=== PATIENT | female | born 1980 | race Caucasian/White ===

== ENCOUNTER 2024-08-25 11:47 | Outpatient (CLI) | payer OTHER, SELFPAY ==
--- NOTE | 2024-08-25 13:03 | ECG_ITS ---
Test Date: 2024-08-25 13:38:17 Measurements Intervals [place] Rate: 61 P: 0 OH: 147 QRS: 38 QRSD: 82 T: 24 QT: 407 QTc: 410 Interpretive Statements SINUS RHYTHM BASELINE ARTIFACT- I, II, III, AVR, AVL, AVF, V1-V6 NORMAL ECG No previous ECG available for comparison Electronically Signed On 08-25-2024 13:42:16 CDT by Liang Mckeon D.O.
[2024-08-25 14:02] LABS: Basophils Percent Auto 0.3 % (0.2-1.2); Eosinophils Absolute Auto 0.1 K/mm3 (0-0.3); Eosinophils Percent Auto 1.2 % (0-4.4); Hematocrit 37.1 % (37.0-47.0); Hemoglobin 12.3 g/dL (12.0-15.0); Immature Granulocyte Absolute 0.01 K/mm3 (0.00-0.031); Immature Granulocyte Percent A 0.2 % (0-0.5); Lymphocytes Absolute Auto 1.51 K/mm3 (0.9-3.2); Lymphocytes Percent Auto 25.2 % (18.3-44.2); Mean Corpuscular HGB Conc 33.2 g/dl (32-36); Mean Corpuscular Hemoglobin 30.6 pg (26-34); Mean Corpuscular Volume 92.3 fl (80-100); Mean Platelet Volume 9.9 fl (7.4-10.4); Monocytes Absolute Auto 0.6 K/mm3 (0.1-0.6); Monocytes Percent Auto 10.5 % (2.6-8.5); Neutrophils Absolute Auto 3.8 K/mm3 (1.3-6.7); Neutrophils Percent Auto 62.6 % (45.5-73.1); Platelet Count Result 229 k/mm3 (150-375); Red Blood Count 4.02 M/mm3 (4.2-5.4); Red Cell Distribution Width 12.8 % (11.5-14.5)
[2024-08-25 14:18] LABS: INR 0.9; Partial Thromboplastin Time 29.5 Seconds (22.3-36.8)
[2024-08-25 14:26] LABS: Alanine Aminotransferase 14 U/L (6-35); Albumin Level 4.1 g/dL (3.5-5.1); Alkaline Phosphatase 62 U/L (38-126); Anion Gap 5 mmol/L (4-12); Aspartate Amino Transferase 22 U/L (14-36); Bilirubin,Total 0.4 mg/dL (0.2-1.3); Blood Urea Nitrogen 11 mg/dL (7-17); Calcium 8.9 mg/dL (8.4-10.2); Carbon Dioxide 28 mmol/L (22-30); Chloride 104 mmol/L (98-107); Estimated Glomerular Filt Rate > 60; Glucose 108 mg/dL (65-110); Potassium 3.9 mmol/L (3.4-5.0); Sodium 137 mmol/L (137-145)
== END 2024-08-25 11:48 | disposition home or self-care (01) ==
LOC: ANHSURGERY 11:59
PROVIDERS: Visit Provider Urology
DX: Z01.818 Encounter for other preprocedural examination (principal); N81.3 Complete uterovaginal prolapse
CPT/HCPCS: 36415; 80053; 85025; 85610; 85730; 86850; 86900; 86901; 93005

== ENCOUNTER 2024-09-04 01:31 | Day surgery (SDC) | payer OTHER, SELFPAY ==
[2024-08-25 12:27] VITALS: BP 110/58; PULSE 59; RESP 16; TEMP 37.3; O2SAT 100; BMI 27.0
--- NOTE | 2024-08-25 12:46 | PC.NURSE ---
Report to the Outpatient Waiting Room, entrance under the green pavilion located off [facility], at time ___6:00AM____ on date ____09/04/24___. Planned Procedure Time: ____7:30AM____.? Time changes happen often and if your time is changed the preop area will call you the afternoon before. - You and your visitor will be asked to self-screen and do not enter if you have any COVID symptoms. Please call surgeon if you need to reschedule. - A mask is optional within the hospital at this time. Patients may have clear liquids (water, carbonated beverages, clear teas, apple juice) until 3 hours prior to surgery with a maximum of 20 ounces. - No food from midnight until time of surgery and no smoking. Take only the following medications with a SIP of water on the morning of surgery: MAY TAKE CLONAZEPAM NEEDED FOR ANXIETY DO NOT STOP ANY OF YOUR OTHER PRESCRIPTION MEDICATIONS PRIOR TO SURGERY EXCEPT THE FOLLOWING Medications to discontinue per physician ____HOLD ALL VITAMINS/SUPPLEMENTS 3 DAYS PRE-OP PER ANESTHESIA Date to take last dose 08/27/24 Please no make-up, nail albanian, hairspray, perfume, deodorant, or body powder the day of surgery.? No jewelry (including any body piercings) or valuables the day of surgery, leave them at home.? Please take a shower or bath the night before, or the morning of, surgery with an antibacterial soap.? Wear comfortable, loose fitting clothing.? - Jewelry must be removed prior to entering the operating room.? Rings and piercings that are not removed may be cut off. - The hospital will not accept responsibility for valuables.? - Please leave all valuables, including medications, at home the day of surgery. If you are going home after surgery, a licensed front loader residential driver must drive you home.? - NO public transportation without another adult if you receive anesthesia. - We recommend that an adult stay with you for 24 hours following discharge. - We also recommend that you do not drive, make important decision, drink alcoholic beverages, or take any drugs that were not prescribed by your health care provider for at least 24 hours after your discharge time. Follow any additional instructions given to you from your surgeon. Telephone instructions given to ____PATIENT and asked if any additional questions and then verbalized understanding. Patient advised to call surgeon office or pre surgery nurse liaison [phone] if any additional questions.
--- NOTE | 2024-08-27 17:32 | P.HP_ITS ---
H&P: HPI History of Present Illness Date/Time: 08/27/24 17:32 Chief Complaint: uterine prolapse Narrative: uterine prolapse without stress incontinence. Desires surgical correction Review of Systems Review of Systems: All systems reviewed & are unremarkable except as noted in HPI and below [facility] Social History Social History Smoking packs per day: 0.2 Smoking cigarettes per day: 4.0 Years smoked: 5 Smoking pack-years: 1.00 Smoking status: Former smoker Tobacco type: cigarettes Smoking end date: 05/29/22 Substance use: current Substance use type: marijuana Living arrangements: with family Additional living arrangements comments: PARENTS Spiritual care concerns: No Meds Home Medications and Allergies Home Medications Medication Instructions Recorded Confirmed Type acetaminophen 500 mg capsule 1,000 mg PO Q6H PRN Pain 08/25/24 08/25/24 History calcium carbonate (Tums) 300 mg PO TID PRN REFLUX 08/25/24 08/25/24 History cetirizine 10 mg tablet (Zyrtec) 10 mg PO DAILY 08/25/24 08/25/24 History clonazepam 0.5 mg tablet 0.5 mg PO DAILY PRN Anxiety 08/25/24 08/25/24 History ibuprofen 200 mg tablet 800 mg PO Q6H PRN Pain 08/25/24 08/25/24 History lactobacillus combination no.8 3 3 cell PO DAILY 08/25/24 08/25/24 History billion cell capsule penicillin V potassium 500 mg 500 mg PO TID 08/25/24 08/25/24 History tablet Allergies Allergy/AdvReac Type Severity Reaction Status Date / Time clindamycin Allergy THROAT Verified 08/25/24 12:19 TIGHTENING albuterol AdvReac TIGHTNESS Verified 08/25/24 12:19 IN LINGS aripiprazole [From Abilify] AdvReac Hallucinating, Verified 08/25/24 12:19 CONFUSION bupropion [From Wellbutrin] AdvReac INCREASED Verified 08/25/24 12:19 ANXIETY butorphanol [From Stadol] AdvReac Anxiety Verified 08/25/24 12:19 citalopram AdvReac INCREASED Verified 08/25/24 12:19 DEPRESSION zinc AdvReac fatigue, Verified 08/25/24 12:19 CHEST PAINS Exam Narrative: apex at +4 Assessment and Plan Assessment and plan (1) Uterine prolapse: Code(s): N81.4 - Uterovaginal prolapse, unspecified Status: Acute Assessment and Plan: plan for sacral colpopexy. Understands risks of bleeding, infection, damage to surrounding organs, damage to the urinary tract, diskitis, vaginal mesh extrusion, urinary tract mesh erosion, obstructive voiding requiring secondary procedure, new onset stress incontinence, dyspareunia, recurrence of prolapse. She agrees to proceed
--- NOTE | 2024-08-31 07:27 | PM.IMHP ---
H&P: HPI History of Present Illness Date/Time: 08/31/24 07:27 Chief Complaint: Uterine prolapse Narrative: Size 44 year robotic supracervical hysterectomy salpingectomy. Has a uterine prolapse and complains of pain discomfort dyspareunia. She will undergo supracervical hysterectomy bilateral salpingectomy with robotic sacral colpopexy by Dr. Mckinnon. Risks and benefits were reviewed including but not exclusive of , aspiration pneumonia, bleeding, transfusion perforation injury to bowel, bladder, ureters, or other internal organs with need for laparotomy. She received the ACOG handout entitled hysterectomy as well as the Jose R handout. She had all questions answered to her satisfaction. She asked to proceed PMF Social History Social History Smoking packs per day: 0.2 Smoking cigarettes per day: 4.0 Years smoked: 5 Smoking pack-years: 1.00 Smoking status: Former smoker Tobacco type: cigarettes Smoking end date: 05/29/22 Substance use: current Substance use type: marijuana Living arrangements: with family Additional living arrangements comments: PARENTS Spiritual care concerns: No Meds Home Medications and Allergies Home Medications Medication Instructions Recorded Confirmed Type acetaminophen 500 mg capsule 1,000 mg PO Q6H PRN Pain 08/25/24 08/25/24 History calcium carbonate (Tums) 300 mg PO TID PRN REFLUX 08/25/24 08/25/24 History cetirizine 10 mg tablet (Zyrtec) 10 mg PO DAILY 08/25/24 08/25/24 History clonazepam 0.5 mg tablet 0.5 mg PO DAILY PRN Anxiety 08/25/24 08/25/24 History ibuprofen 200 mg tablet 800 mg PO Q6H PRN Pain 08/25/24 08/25/24 History lactobacillus combination no.8 3 3 cell PO DAILY 08/25/24 08/25/24 History billion cell capsule penicillin V potassium 500 mg 500 mg PO TID 08/25/24 08/25/24 History tablet Allergies Allergy/AdvReac Type Severity Reaction Status Date / Time clindamycin Allergy THROAT Verified 08/25/24 12:19 TIGHTENING albuterol AdvReac TIGHTNESS Verified 08/25/24 12:19 IN LINGS aripiprazole [From Abiliy] AdvReac Hallucinating, Verified 08/25/24 12:19 CONFUSION bupropion [From Wellbutrin] AdvReac INCREASED Verified 08/25/24 12:19 ANXIETY butorphanol [From Stadol] AdvReac Anxiety Verified 08/25/24 12:19 citalopram AdvReac INCREASED Verified 08/25/24 12:19 DEPRESSION zinc AdvReac fatigue, Verified 08/25/24 12:19 CHEST PAINS Exam Const: General: cooperative, healthy appearing and comfortable Nutritional Appearance: average body habitus Orientation/consciousness: oriented to person, oriented to place and oriented to time HENMT: Head: normal to inspection Resp: Effort & Inspection: normal respiratory effort Cardio: Rate: regular rate Rhythm: regular rhythm Heart sounds: S1 normal heart sound present and S2 normal heart sound present GI: Inspection: normal to inspection Auscultation: normal bowel sounds : External Female Exam: normal external appearance Speculum Exam - Vagina: normal appearance of the vagina Speculum Exam - Cervix: normal appearance of the cervix (2nd-3rd degree prolapse present) Bimanual exam- vagina & uterus: Uterine tenderness Bimanual Exam- Adnexa, other: normal adnexae Assessment and Plan Assessment and plan (1) Uterine prolapse: Code(s): N81.4 - Uterovaginal prolapse, unspecified Status: Acute Assessment and Plan: Robotic supracervical hysterectomy bilateral salpingectomy. Dr. Farley will perform sacral colpopexy
[2024-09-04] VITALS (12 sets, daily range): BP systolic 93–112; BP diastolic 48–67; PULSE 52–79; RESP 12–18; TEMP 36.3–37.2; O2SAT 96–100
--- NOTE | 2024-09-04 04:33 | WPDHPUPDATE1 ---
History and Physical Update Update Date/Time: 09/04/24 04:33 History and Physical has been reviewed, including an updated exam of the patient. There are NO changes in the patient's condition. Risks, benefits, and alternatives have been discussed and questions answered. Patient agrees to proceed with procedure.
--- NOTE | 2024-09-04 06:50 | WPDHPUPDATE1 ---
History and Physical Update Update Date/Time: 09/04/24 06:50 History and Physical has been reviewed, including an updated exam of the patient. There are NO changes in the patient's condition. Risks, benefits, and alternatives have been discussed and questions answered. Patient agrees to proceed with procedure.
[2024-09-04] MEDS: LACTATED RINGERS 1,000 ML 30 ML IV CONT ×2 (07:00→10:36)
[2024-09-04] MEDS: ACETAMINOPHEN 500 MG TABLET 1000 MG PO (07:00)
[2024-09-04 07:14] LABS: BEDSIDEPREGUCG Negative (Negative)
--- NOTE | 2024-09-04 07:24 | WPDANESEPPF ---
Anes - Initial Pre Proc Eval Procedure: Operation Date: 09/04/24 07:30 Proposed Procedures p Robotic Sacrocolpopexy, Urethral Sling - Graham Ferreira MD s Robotic Assisted Supracervical Hysterectomy with Bilateral Salpingectomy - Faizan Marei MD Date/Time: 09/04/24 07:24 Surgeon: Graham Ferreira MD Pre Op Diagnosis: compl uterine prolapse, stress incont Patient Data Age: 44 Gender: F Height: 1.61 m Weight: 69.1 kg Last Vital Signs Temp 97.4 F L 09/04/24 07:00 Pulse 53 L 09/04/24 07:00 Resp 14 09/04/24 07:00 BP 107/65 09/04/24 07:00 Pulse Ox 100 09/04/24 07:00 O2 Del Method Room Air 09/04/24 07:00 Allergies Allergy/AdvReac Type Severity Reaction Status Date / Time clindamycin Allergy THROAT Verified 09/04/24 07:17 TIGHTENING albuterol AdvReac TIGHTNESS Verified 09/04/24 07:17 IN LINGS aripiprazole [From Abilify] AdvReac Hallucinating, Verified 09/04/24 07:17 CONFUSION bupropion [From Wellbutrin] AdvReac INCREASED Verified 09/04/24 07:17 ANXIETY butorphanol [From Stadol] AdvReac Anxiety Verified 09/04/24 07:17 citalopram AdvReac INCREASED Verified 09/04/24 07:17 DEPRESSION zinc AdvReac fatigue, Verified 09/04/24 07:17 CHEST PAINS Home Medications Medication Instructions Recorded Confirmed Type acetaminophen 500 mg capsule 1,000 mg PO Q6H PRN Pain 08/25/24 08/25/24 History calcium carbonate (Tums) 300 mg PO TID PRN REFLUX 08/25/24 08/25/24 History cetirizine 10 mg tablet (Zyrtec) 10 mg PO DAILY 08/25/24 08/25/24 History clonazepam 0.5 mg tablet 0.5 mg PO DAILY PRN Anxiety 08/25/24 08/25/24 History ibuprofen 200 mg tablet 800 mg PO Q6H PRN Pain 08/25/24 08/25/24 History lactobacillus combination no.8 3 3 cell PO DAILY 08/25/24 08/25/24 History billion cell capsule penicillin V potassium 500 mg 500 mg PO TID 08/25/24 08/25/24 History tablet Laboratory Tests 09/04/24 07:00 POC Urine HCG, Qual Negative (Negative) Patient hx anesthesia problems: none Family hx anesthesia problems: none Results Review: All pre-operative results and documents have been reviewed as part of the pre-operative evaluation. [facility] Social History Social History Smoking packs per day: 0.2 Smoking cigarettes per day: 4.0 Years smoked: 5 Smoking pack-years: 1.00 Smoking status: Former smoker Tobacco type: cigarettes Smoking end date: 05/29/22 Substance use: current Substance use type: marijuana Living arrangements: with family Additional living arrangements comments: PARENTS Spiritual care concerns: No Anes - Eval Final PreProcedure Day of Procedure 09/04/24 07:24 Patient weight: normal Heart: regular rate and rhythm Lungs: clear to auscultation Airway: Mallampati scale class II Neurological: alert and oriented Last oral intake: >/= 8 hours ASA classification: II Emergent: no Anesthetic plan: proceed Anesthesia type and monitoring: general ETT and standard monitoring Results Review: All pre-operative results and documents have been reviewed as part of the pre-operative evaluation. Informed Consent: The patient's anesthetic plan and its attendant risks and benefits were discussed with the patient/family/POA. Questions were solicited and answers provided to the satisfaction of the patient/family/POA.
[2024-09-04] MEDS: ceFAZolin 2 GM/D5W 50 ML 2 GM/50 ML BAG IVPB (07:30)
[2024-09-04] MEDS: metroNIDAZOLE 500 MG/ISO 100ML 500 MG/100 ML BAG 100 MG IVPB ×3 (07:58→21:33)
[2024-09-04] MEDS: BUPIVACAINE/EPINEPHRINE 0.5% 10 ML VIAL 20 ML INFILTRATE (08:23)
--- NOTE | 2024-09-04 08:50 | W.PM.PROC2 ---
Procedure Note - Detailed Date of Procedure 09/04/24 Pre-op Diagnosis compl uterine prolapse, stress incont Post-op Diagnosis Same Procedure Performed Robotic supracervical hysterectomy and bilateral salpingectomy Surgeon Faizan Marie MD Anesthesia General Indications this is a 44-year-old female with uterine prolapse and stress incontinence Findings prolapsed uterus. Tubes status post tubal ligation. Normal-appearing ovaries. Description of Procedure Patient was prepped draped in the normal sterile fashion placed in the dorsal lithotomy position. Under excellent general endotracheal anesthesia weighted speculum placed in posterior fornix vagina. Anterior lip of the cervix grasped with single-tooth tenaculum Ramos's cannula inserted to the cervix. These were attached to each other to be used for uterine manipulation. A 16 [place] catheter was placed in the bladder and the bladder was drained of clear urine. Dr. Farley proceeded to dock the robot. Please see his operative report for full details. Attention was turned to the certified lactation counselor. The uterus was floppy and large. The anteriorly a the left uterosacral ligament was grasped, burned, cut. Then incision made across the peritoneum bladder and uterus a retracting it caudally to the opposite ligament which was clamped, burned, cut. Next the dilated left fallopian tube was skeletonized clamped burned and cut and dissected away from the ovarian complex and left attached to the uterine origin. In similar fashion the right fallopian tube was grasped cut burned and brought away from the ovary the left attached to the uterine origin. Next the left utero-ovarian ligament was skeletonized to conserve the left ovary. This was clamped, burned, cut and brought to the level of previously cut round ligament. In similar fashion conserving the right ovary, the utero-ovarian ligament was clamped, burned, cut and brought to level of previously cut round ligament. The cardinal broad ligaments on the left were then serially skeletonized hugging the cervix uterus clamping burning cutting and bringing this down to the large tortuous uterine vessels on the left. These were individually clamped, burned, cut. In similar fashion right the cardinal broad ligaments were clamped, burned, cut hugging the cervix uterus until the uterine vessels could be seen on the right. These were individually clamped, burned, cut. A supracervical incision made and the uterus was then trisected to 3 parts placed in an Endo-Catch. Dr. Ferreira proceeded from there. Blood loss to this point was 5cc. All sponge, needle, instrument counts were correct and there were no immediate complications up to this point Estimated Blood Loss 25 Drains No Packing No Pathology Yes Complications No immediate complications Condition Stable Disposition No change
--- NOTE | 2024-09-04 08:53 | P.DS_ITS ---
DS: Admitting Diagnosis Discharge Date 09/05/2024 Admitting Diagnosis uterine prolapse stress urinary DS: Discharge Diagnosis Discharge Diagnosis (1) Uterine prolapse: Code(s): N81.4 - Uterovaginal prolapse, unspecified Status: Acute DS: Summary Hospital Course Reason for hospitalization: patient robotic supracervical hysterectomy and salpingectomy with sacral colpopexy 09/03/2024. Hospital Course: Course. She remained afebrile. She was up, ambulating voiding without difficulty difficulty and eating regular food diet Time Spent with Patient Time attestation: Total time spent providing and/or coordinating discharge services: Exam Const: General: cooperative, healthy appearing and comfortable Orientation/consciousness: oriented to person, oriented to place and oriented to time Resp: Effort & Inspection: normal respiratory effort Cardio: Rate: regular rate Rhythm: regular rhythm Heart sounds: S1 normal heart sound present and S2 normal heart sound present GI: Inspection: normal to inspection and incision ( wounds were clean dry and intact) DS: Data Data Completed and Pending Labs on day of discharge: Labs from last 24 hours 09/04/24 07:00 POC Urine HCG, Qual Negative Discharge Plan Discharge Patient Disposition: Home, Self-Care Discharge Instructions: Some Complications to Watch for: ? Excessive incisional or vaginal drainage (more than one pad an hour). Additional Instructions: ? Expect some vaginal spotting for 2-4 days. ? Nothing vaginally (i.e. douching, intercourse, tampons) until follow up visit. No lifting >20lb, exercise for 6 weeks No tub bath or pool for 2 weeks no intercourse 6week Patient Instructions: Antibiotic Form, Salpingectomy (DC), Laparoscopic Hysterectomy (DC) Follow-up/Referrals: Graham Ferreira MD [Physician] - (6 weeks) Faizan Melendrez MD [Physician] - Discharge Medications: New docusate sodium [Colace] 100 mg capsule 100 mg PO BID Qty: 40 0RF hydrocodone-acetaminophen 5-325 mg tablet 1 tablet PO Q6H PRN (Reason: pain) Qty: 20 0RF Continued cetirizine [Zyrtec] 10 mg Tablet 10 mg PO DAILY clonazepam 0.5 mg Tablet 0.5 mg PO DAILY PRN (Reason: Anxiety) penicillin V potassium 500 mg Tablet 500 mg PO TID Patient Comments: TAKING FOR TOOTH INFECTION, NEARLY FINISHED acetaminophen 500 mg Capsule 1,000 mg PO Q6H PRN (Reason: Pain) lactobacillus combination no.8 3 billion cell Capsule 3 cell PO DAILY Tums 300 mg (750 mg) Tablet,Chewable 300 mg PO TID PRN (Reason: REFLUX) Held ibuprofen 200 mg Tablet 800 mg PO Q6H PRN (Reason: Pain) Hold Instructions: Resume on 09/06/24.
--- NOTE | 2024-09-04 10:19 | W.PM.PROC2 ---
Procedure Note - Detailed Date of Procedure 09/04/24 Pre-op Diagnosis compl uterine prolapse Post-op Diagnosis Same Procedure Performed Robotic assisted laparoscopic sacral colpopexy Cystoscopy Surgeon Graham Ferreira MD Anesthesia General Indications A woman with uterine prolapse without stress incontinence by history or urodynamics. She desires surgical correction. She is here for the above. She understands risks of bleeding, infection, diskitis, damage to surrounding organs, bowel injury, bowel obstruction, mesh related complications including exposure and extrusion, postoperative voiding dysfunction including incontinence and retention, need for ancillary procedures, dyspareunia, recurrence of prolapse, and other perioperative intraoperative postoperative complications. She agrees to proceed. Findings See below Description of Procedure She was correctly identified. Informed consent obtained. She from the operating room. She was given general anesthesia. She was given appropriate perioperative antibiotics. She was placed a low lithotomy position. Pressure points were padded. A time-out performed. I marked out the skin 3 fingerbreadths cephalad to the umbilicus. I anesthetized the skin. I incised the skin. I dissected down to the fascia. I grasped the fascia with Leonel clamps. I entered the fascia sharply in a Rivera type technique. I placed sutures for later fascial closure. I placed a midline trocar. I examined the abdomen. There is no sign of any injury. Under direct vision I placed 2 additional trocars in the right upper quadrant and 2 additional trocars the left upper quadrant. She was placed in steep Trendelenburg. The robot was docked. Her director paid media completed their portion of the procedure. Please see that operative report for details. I then sat at the console. The Sizer in the vagina created plane on the anterior and posterior vaginal wall. I took great care not to injure the vagina, bladder, or rectum. I introduced the mesh into the abdomen. I sewed the anterior leaflet of mesh on the anterior vaginal wall. I sewed the posterior leaflet of mesh on the posterior vaginal wall. This was done with several sutures of 2 0 Brashear-Jesus. I reflected the colon laterally. I opened the posterior peritoneum over the sacral promontory. I carried this into the cul-de-sac. I freed up the edges for later retroperitonealization. I located the anterior longitudinal ligament the sacrum. I cleaned off all fatty tissues. I then tensioned my mesh appropriately. I did a vaginal exam the bedside. I assured prolapse reduction without undue tension. I then sewed the proximal leaflet of mesh onto the anterior longitudinal ligament of the sacrum with 4 sutures of 2 0 Brashear-Jesus. The prolapse when all the way up to the sacral promontory with very little intervening bridge. I then used a 2 0 Monocryl to completely and meticulously retroperitonealized all mesh. I allowed the colon to go back to its normal anatomic location. There is no sign of any impingement. The specimen was then removed. All ports removed. Fascia was tied down. Skin was closed with Monocryl and surgical glue. I then performed cystoscopy. There was no tumors or surgical artifact. Both ureters were seen to excrete clear yellow urine. There is no surgical artifact in the bladder or urethra. Montelongo catheter was replaced. She was awakened and transferred to PACU in stable condition. Implants Sacral colpopexy mesh Urethral sling Estimated Blood Loss 25 Packing No Pathology None sent Complications No immediate complications Condition Stable Disposition PACU
[2024-09-04] MEDS: fentaNYL CITRATE INJ (*CRX) 100 MCG/2 ML VIAL 25 MCG IV PUSH ×2 (11:26→11:28)
--- NOTE | 2024-09-04 12:02 | PC.NURSE ---
This patient, Loren George, was received from PACU on 09/04/24 at 1202. Patient/family oriented to unit policies and routines
[2024-09-04] MEDS: KETOROLAC 30 MG/ML VIAL (*BKC) IV PUSH ×2 (12:23→20:16)
[2024-09-04] MEDS: KCL 20 MEQ/D5/0.45% SOD CHL 1,000 ML 100 ML IV CONT (12:25)
[2024-09-04] MEDS: ceFAZolin 1 GM/NS 50 ML 1 GM/50 ML BAG IVPB ×2 (15:50→23:58)
[2024-09-04] MEDS: ONDANSETRON INJ 4 MG/2 ML VIAL IV PUSH ×2 (16:06→21:39)
[2024-09-04] MEDS: MORPHINE SULFATE (*CRX) 2 MG/ML INJ IV PUSH ×2 (16:06→21:38)
[2024-09-04] MEDS: HYDROcodone/acetaminophen (*CRX) 5-325 MG TABLET 1 TAB PO (19:08)
[2024-09-05] MEDS: HYDROcodone/acetaminophen (*CRX) 5-325 MG TABLET 1 TAB PO ×3 (00:06→10:37)
[2024-09-05 00:22] VITALS: BP 87/41; PULSE 76; RESP 18; TEMP 36.4; O2SAT 98
[2024-09-05] MEDS: KCL 20 MEQ/D5/0.45% SOD CHL 1,000 ML 100 ML IV CONT (01:31)
[2024-09-05] MEDS: KETOROLAC 30 MG/ML VIAL (*BKC) IV PUSH (04:08)
[2024-09-05 04:48] VITALS: BP 83/45; PULSE 73; RESP 18; TEMP 37.2; O2SAT 97
[2024-09-05] MEDS: metroNIDAZOLE 500 MG/ISO 100ML 500 MG/100 ML BAG 100 MG IVPB (05:29)
[2024-09-05 07:45] VITALS: BP 87/48; PULSE 60; RESP 16; TEMP 37.1; O2SAT 98
[2024-09-05] MEDS: ACETAMINOPHEN 325 MG TABLET 650 MG PO (08:45)
[2024-09-05] MEDS: MORPHINE SULFATE (*CRX) 2 MG/ML INJ IV PUSH (08:48)
[2024-09-05] MEDS: DOCUSATE SODIUM 100 MG CAPSULE PO (08:50)
[2024-09-05] MEDS: ENOXAPARIN 30 MG/0.3 ML SYRINGE SUB-Q (08:50)
[2024-09-05] MEDS: LORATADINE 10 MG TABLET PO (08:51)
[2024-09-05] MEDS: ceFAZolin 1 GM/NS 50 ML 1 GM/50 ML BAG IVPB (08:53)
[2024-09-05] MEDS: ONDANSETRON INJ 4 MG/2 ML VIAL IV PUSH (09:12)
--- NOTE | 2024-09-05 10:24 | WPDANESPN ---
Anes - Prog Note Post-Op Date/Time: 09/05/24 10:24 Cardiovascular status: normal Respiratory status: normal Airway patency: baseline Mental status: baseline Post-Op hydration status: normal Vital Signs: Last Vital Signs Temp 37.1 C 09/05/24 07:45 Pulse 60 09/05/24 07:45 Resp 16 09/05/24 07:45 BP 87/48 L 09/05/24 07:45 Pulse Ox 98 09/05/24 07:45 O2 Del Method Room Air 09/05/24 04:48 O2 Flow Rate 6 09/04/24 10:53 Pain Score (VAS): 510 I/O: Intake & Output 09/04/24 09/05/24 09/05/24 23:59 07:59 15:59 Intake Total 1450 950 Output Total 400 500 125 Balance 1050 450 -125 Post-procedural complaints: none Patient Feedback: Patient satisfied with anesthetic care.
== END 2024-09-05 13:00 | disposition home or self-care (01) ==
LOC: ANHSURGERY 08:55 → ANHOB2 11:56
PROVIDERS: Obstetrics & Gynecology; Visit Provider Urology
PROC: (CPT 57425; principal; 2024-09-04 07:30)
PROC: 0UT94ZZ Resection of Uterus, Percutaneous Endoscopic Approach (ICD-10-PCS; CPT 57425; 2024-09-04 07:30)
DX: N81.3 Complete uterovaginal prolapse (principal); N39.3 Stress incontinence (female) (male); Z87.891 Personal history of nicotine dependence; F12.90 Cannabis use, unspecified, uncomplicated; Z79.1 Long term (current) use of non-steroidal anti-inflammatories (NSAID)
CPT/HCPCS: 58542; 57425; S2900 ×2; 36415; 80053; 85025; 85610; 85730; 86850; 86900; 86901; 88307; 93005; 99199; A9270; C1781; J0461; J0690; J1100; J1171; J1596; J1650; J1836; J1885; J2003; J2250; J2270; J2405; J2704; J3010; J3480; J7030; J7120

== ENCOUNTER 2025-02-20 11:30 | Emergency (ER) | payer SELFPAY ==
[2025-02-20 11:38] VITALS: BP 125/72; PULSE 64; RESP 18; TEMP 36.4; O2SAT 100
--- NOTE | 2025-02-20 12:06 | ED_ITS ---
HPI - General Adult General Chief complaint: Dental/Oral Stated complaint: Sinus Pain/Toothache Source: patient Mode of arrival: ambulatory Limitations: no limitations History of Present Illness HPI narrative: Pt presents for evaluation of sinus symptoms and dental pain. Symptom onset for sinus symptoms about one week ago. Symptom onset for dental pain several weeks ago, worse in the past 4-5 days. She has experience a fever and nausea. She denies any chills, sore throat, cough for shortness of breath. She indicates that she is planning on having dental work done but does not currently have insurance. She does not smoke. Related Data Allergies Allergy/AdvReac Type Severity Reaction Status Date / Time clindamycin Allergy THROAT Verified 02/20/25 11:41 TIGHTENING albuterol AdvReac TIGHTNESS Verified 02/20/25 11:41 IN LINGS aripiprazole (From Abilify) AdvReac Hallucinating, Verified 02/20/25 11:41 CONFUSION bupropion (From Wellbutrin) AdvReac INCREASED Verified 02/20/25 11:41 ANXIETY butorphanol (From Stadol) AdvReac Anxiety Verified 02/20/25 11:41 citalopram AdvReac INCREASED Verified 02/20/25 11:41 DEPRESSION zinc AdvReac fatigue, Verified 02/20/25 11:41 CHEST PAINS Review of Systems Review of Systems: CONSTITUTIONAL: Reports fever. Denies chills, or sweats. EYES: Denies visual changes, redness, or discharge. ENT: Reports sinus congestion and thick nasal drainage. Reports dental pain. Denies sore throat or otalgia. CARDIOVASCULAR: Denies chest pain, palpitations, or edema. RESPIRATORY: Denies cough or dyspnea. GASTROINTESTINAL: Denies abdominal pain, nausea, vomiting, or diarrhea. GENITOURINARY: Denies dysuria or hematuria. SKIN: Denies rash or itching. MUSCULOSKELETAL: Denies back pain, joint pain, or myalgia. NEUROLOGIC: Denies headache, numbness, dizziness, or weakness. PSYCHIATRIC: Denies anxiety or depression. [facility] Past Medical History Medical History No pertinent past medical history Surgical History Surgical History (Reviewed 02/20/25 @ 12:11 by Armen Lopez, [facility]) No pertinent past surgical history Family History Family History (Reviewed 02/20/25 @ 12:11 by Armen Lopez [facility], ) Mother Family history non-contributory Social History Social History Smoking packs per day: 0.2 Smoking cigarettes per day: 4.0 Years smoked: 5 Smoking pack-years: 1.00 Smoking status: Former smoker Tobacco type: cigarettes Smoking end date: 05/29/22 Substance use: current Substance use type: marijuana Living arrangements: with family Additional living arrangements comments: PARENTS Spiritual care concerns: No Exam Narrative: GENERAL: Well-appearing, well-nourished, and in no acute distress. HEAD: Normocephalic, atraumatic. EYES: PERRLA and EOMI. ENT: Nares clear, no rhinorrhea or epistaxis. Mucous membranes moist. Oropharynx without tonsillar hypertrophy exudate or other lesions. There is several absent teeth. Teeth are present DKA noted. Bilateral TMs pearly small nonbulging NECK: Supple. No adenopathy or masses. No carotid bruits or JVD CHEST: Clear to auscultation. No respiratory distress. No wheezes rales or rhonchi HEART: Regular rate and rhythm. No murmur heard. Normal peripheral pulses. ABDOMEN: Soft, nontender, nondistended, normal active bowel sounds. EXTREMITIES: Normal range of motion. No edema. SKIN: Warm, dry, no rash. NEURO: No focal deficits. Alert and oriented x3. PSYCH: Normal mood and affect. Course Course Emergency Course: This is a 44-year-old female who presented for evaluation of sinus symptoms and dental pain. She meets criteria for bacterial sinusitis based upon presence of fever. Will treat both conditions with augmentin. Increase hydration. Follow up with primary provider and dentist. Go to the ER for worsening symptoms. Pt in agreement with plan of care. Level of Care: Express Care Visit Vital Signs Vital signs: Vital Signs Temperature 36.4 C 02/20/25 11:38 Pulse Rate 64 02/20/25 11:38 Respiratory Rate 18 02/20/25 11:38 Blood Pressure 125/72 02/20/25 11:38 Pulse Oximetry 100 02/20/25 11:38 Oxygen Delivery Room Air 02/20/25 11:38 Temperature 36.4 C 02/20/25 11:38 Pulse Rate 64 02/20/25 11:38 Respiratory Rate 18 02/20/25 11:38 Blood Pressure 125/72 02/20/25 11:38 Pulse Oximetry 100 02/20/25 11:38 Oxygen Delivery Room Air 02/20/25 11:38 Medical Decision Making Vital Signs Vital Signs: Vital Signs Temperature 36.4 C 02/20/25 11:38 Pulse Rate 64 02/20/25 11:38 Respiratory Rate 18 02/20/25 11:38 Blood Pressure 125/72 02/20/25 11:38 Pulse Oximetry 100 02/20/25 11:38 Oxygen Delivery Room Air 02/20/25 11:38 Temperature 36.4 C 02/20/25 11:38 Pulse Rate 64 02/20/25 11:38 Respiratory Rate 18 02/20/25 11:38 Blood Pressure 125/72 02/20/25 11:38 Pulse Oximetry 100 02/20/25 11:38 Oxygen Delivery Room Air 02/20/25 11:38 Discharge Plan Discharge Clinical Impression: Dental decay, Sinusitis Patient Disposition: Home, Self-Care Condition: Stable Instructions: Antibiotic Form, Sinusitis (ED), Toothache (ED), Mouth Care (ED) Patient Language: Bulgarian Prescriptions: New amoxicillin-pot clavulanate 875-125 mg tablet 1 tablet PO Q12H Qty: 20 0RF Follow-up/Referrals: Leigh Ann Roach [Other] Time of Disposition: 11:57
--- OUTSIDE RECORDS SUMMARY | 2025-02-20 13:47 | XMS_ITS | Referral Summary ---
Author Organization [facility] Address [address] [place] [address] Care Team Providers Care Cementer Helper Name Role Phone Leigh Ann Roach MD Primary Care Provider [phone] Carole Freitas PT Unavailable Unavailable Emma Hendricks CLINICAL DOCUMENT IMPROVEMENT EDUCATOR Unavailable [phone] Allergies Active Allergy Reactions Criticality Noted Date Comments Albuterol Other (See comments) Low 09/14/2022 Chest tightness Buspirone Hallucinations Medium 09/08/2021 Citalopram Other (See comments) Low 09/14/2022 Suicidal Clindamycin Anxiety Low 09/14/2022 Prochlorperazine Anxiety Low 09/21/2017 Butorphanol Other (See comments) Low 09/14/2022 Suicidal Zinc Other (See comments) Low 11/11/2022 Panic attacks Medications diphenoxylate-a tropine (LOMOTIL) 2.5-0.025 mg per tabletIndicatio ns:diarrhea Take 1 tablet by mouth 4 (four) times a day as needed for diarrhea 10 tablet 9 Active Additional Information Patient not taking.Reported on 12/17/2022 lidocaine viscous (XYLOCAINE) 2 % solution Apply 5 mL topically every 8 (eight) hours as needed (pain) 100 mL 0 Active Additional Information Patient not taking.Reported on 12/17/2022 chlorhexidine (PERIDEX) 0.12 % solution Apply 15 mL to the mouth or throat 2 (two) times a day 120 mL 0 Active Additional Information Patient not taking.Reported on 12/17/2022 busPIRone (BUSPAR) 5 mg tablet Take 5 mg by mouth 3 (three) times a day as needed 9 Active meclizine (ANTIVERT) 25 mg tablet Take 25 mg by mouth 3 (three) times a day as needed for dizziness Active diphenoxylate-a tropine (LOMOTIL) 2.5-0.025 mg per tabletIndicatio ns:diarrhea Take 1 tablet by mouth 4 (four) times a day as needed for diarrhea 12 tablet 2 Active Additional Information Patient not taking.Reported on 09/14/2022 ergocalciferol (VITAMIN D) 50,000 unit capsule Take 50,000 Units by mouth 2 Active Active Problems Problem Noted Date Diagnosed Date Morbid (severe) obesity due to excess calories 1 Memory loss 06/16/2022 Dizziness and giddiness 06/14/2020 Assessment & Plan (06/14/2020 12:14 PM CDT): Hearing test and VNG - call with results, please avoid meclizine 24 hours prior to exam Consider Physical therapy for Cervical Vertigo based on Audiogram and VNG Warm compresses to neck and jaw for 15 minutes at a time as often as possible Bilateral hearing loss 06/14/2020 Assessment & Plan (06/14/2020 12:14 PM CDT): Hearing test and VNG - call with results, please avoid meclizine 24 hours prior to exam Consider Physical therapy for Cervical Vertigo based on Audiogram and VNG Warm compresses to neck and jaw for 15 minutes at a time as often as possible Immunizations Immunization Administration Dates Next Due DTP 07/18/1987, 4,02/13/1983,12/11,1982 DTaP 07/04/1996 Influenza, Quadrivalent, Spl it, Preservative Free, Intramuscular 09/01/2019 MMR 08/20/1987,02/12/1984 OPV 07/18/1987, 4,02/13/1983,12/11,1982 Tdap 09/08/2019 Social History Tobacco Use Types Packs/Day Years Used Date Smoking Tobacco: Every Day Cigarettes Smokeless Tobacco: Never Tobacco Cessation:Ready to Q uit: No; Counseling Given: No Alcohol Use Standard Drinks/Week Comments Yes 0 (1 standard drink = 0.6 oz pur e alcohol) social Personal Safety Answer Date Recorded Getting School Help Needed Not on file 11/13 Comments No Sex and Gender Information Value Date Recorded Sex Assigned at Not on file Legal Sex Female 7:17 PM CORROSION CONTROL ENGINEER Gender Identity Not on file Sexual Orientation Not on file Last Filed Vital Signs Vital Sign Reading Time Taken Comments Blood Pressure 127/84 12/17/2022 10:31 AM CORROSION CONTROL ENGINEER Pulse 76 12/17/2022 10:31 AM CORROSION CONTROL ENGINEER Temperature 36.8 C (98.2 F) 05/11/2022 11:45 PM CDT Respiratory Rate 18 11/11/2022 10:23 AM CORROSION CONTROL ENGINEER Oxygen Saturation 99% 12/17/2022 10:31 AM CORROSION CONTROL ENGINEER Inhaled Oxygen Concentration - - Weight 100.2 kg (221 lb) 12/17/2022 10:31 AM CORROSION CONTROL ENGINEER Height 162.6 cm (5' 4.02 ) 12/17/2022 10:[address] Body Mass Index 37.92 12/17/2022 10:31 AM CORROSION CONTROL ENGINEER Plan of Treatment Not on file Procedures Procedure Name Priority Date/Time Associated Diagnosis Comments SCREENING MAMMOGRAM BILATERAL W JOSE Schedule Routine, Read Routine (OP Routine) 12/09/2022 2:41 PM [employer]ROSION CONTROL ENGINEER Dysmenorrhea, unspecified Encounter for screening mammogram for malignant neoplasm of breast from Last 3 Months or Most Recently Relevant to Health Maintenance Results * Screening Mammogram Bilateral W Jose (12/09/2022 2:41 PM CORROSION CONTROL ENGINEER) Anatomical Region Laterality Modality Breast Bilateral Mammography 12/09/2022 2:43 PM CORROSION CONTROL ENGINEER Impressions 12/09/2022 2:43 PM CORROSION CONTROL ENGINEER There is no mammographic evidence of malignancy. A 1 year screening mammogram is recommended. BI-RADS: 1 - Negative. The patient has been or will be contacted. The patient will be entered into a reminder system with a target due date of 1 year for her next mammogram. Electronically signed by: BRUNO Cardona 12/09/2022 2:43 PM CORROSION CONTROL ENGINEER EXAMINATION: SCREENING MAMMOGRAM BILATERAL W JOSE ORDERING HEALTHCARE PROVIDER: FLOR DRISCOLL HISTORY: Routine screening mammography. COMPARISON: This is patient's baseline mammogram. TECHNIQUE: CC and MLO views of both breasts were obtained with digital technique using digital breast tomosynthesis with C view. Computer aided detection was utilized. FINDINGS: DENSITY: The breasts are heterogeneously dense, which may obscure small masses. BREASTS: There are no suspicious masses, suspicious calcifications, or other suspicious findings in either breast. Flor Driscoll MD IMG MAMMO PROCEDURES Isaura l Result from Last 3 Months or Most Recently Relevant to Health Maintenance Insurance [facility] [place] [address] [facility] Care Teams Cementer Helper Relationship Specialty Start Date End Date Leigh Ann Roach MD [address] [place] [address] DR LAMAR [address] [place], [place] [address] [address] PCP - General 05/11/22 Carole Freitas, PT Physical Therapist Physical Therapy 06/29/22 Emma Hendricks, THOR [address] [place] [address] [place] [address] Nurse Practitioner Psychiatry 09/14/22
--- OUTSIDE RECORDS SUMMARY | 2025-02-20 13:47 | XMS_ITS | Patient Health Record ---
Author Organization [facility] [employer] Address [address] [facility] [address] [place] [address] Care Team Providers Care Professor Of Religious Studies Name Role Phone Leti Cespedes Unavailable [phone] Hoda Gonzalez Unavailable [phone] Allergies Allergen (clinical drug ingredient) Drug/Non Drug Allergy documented on EMR Reaction Allergy Type Onset Date Status aripiprazole Abilify Unknown Drug Allergy Acti ve albuterol Albuterol Unknown Drug Allergy Active citalopram Citalopram Hydrobromide Unknown Drug Allergy Active lamotrigine LaMICtal Unknown Drug Allergy Activ e Stadol Unknown Drug Allergy Active Wellbutrin Unknown Drug Allergy Active Zinc Unknown Drug Allergy Active clindamycin Clindamycin Unknown Drug Allergy Act tirso Results Component Value Reference Range Notes UDT Reviewed date:08/23/2024 09:48:07 AM Interpretation: Performing Lab: Notes/Report: THC p 0 - 50 ng/ml Cocaine n 0 - 300 ng/ml Amphetamine n 0 - 1000 ng/ml Buprenorphine (BUP) n 0 - 10 ng/ml Secobarbital (Bar) n 0 - 300 ng/ml Oxazepam (BZO) n 0 - 300 ng/ml 9-wrsccfpzxg-4,1-djvqbwok-7,3-diphenylpyrrolidine (MARGARET P) n 0 - 300 ng/ml Methamphetamine (MET) n 0 - 1000 ng/ml Methylenedioxymethamphetamine (MDMA) n 0 - 500 ng/ml Morphine (MOP 300/XLP1618) n 0 - 300 ng/ml Methadone (MTD) n 0 - 300 ng/ml Phencyclidine (PCP) n 0 - 25 ng/ml Nortriptyline (TCA) n 0 - 1000 ng/ml Oxycodone n 0 - 300 ng/ml x n 0 - 300 ng/ml Reason For Referral No Information Medications Medication SIG (Take, Route, Fr equency, Duration) Notes Start Date End Date Status hydrOXYzine HCl 25 MG 1 tablet Orally twice a day for 30 days As needed 11/17/2024 Active Social History Tobacco Use: Social History Observation Description Date Details (start date - stop date) Former Smoker NA - NA Sex Assigned At : Social History Observation Description Sex Assigned At Female Tobacco Control (Standard) Question Answer Notes Tobacco use: Former smoker When did you start smoking? 2015 When did you stop smoking? 2021 How long has it been since you last smoked? 1-5 years AUDIT-C (Standard) Question Answer Notes Did you have a drink contain ing alcohol in the past year? Yes How often did you have six o r more drinks on one occasion in the past year? Less than monthly (1 point) How many drinks did you have on a typical day when you were drinking in the past year? 1 or 2 drinks (0 point) How often did you have a dri nk containing alcohol in the past year? 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) Active confirmed Problem 837473013 Chronic post-traumatic stress disorder (PTSD) (F43.12) Active confirmed Problem Panic disorder (150286867) Panic disorder (F41.0) Active confirmed Vital Signs Heart Rate 58 /min 08/23/2024 Temperature 97.7 degrees Fahrenheit 08/23/2024 Blood pressure diastolic 54 mm Hg 08/23/2024 Weight-kg 70.22 kg 08/23/2024 Blood pressure systolic 108 mm Hg 08/23/2024 Weight 154.8 lbs 08/23/2024 Encounters Encounter Location Date Provider Diagnosis [facility] [employer] [facility] [address] [facility] [address] [place] [address] 10/25/2024 Hoda Gonzalez [facility] [employer] [place] [address] [facility] [address] [place] [address] 08/23/2024 Leti Cespedes CLAUDIA (generalized anxiety disorder) F41.1 ; Panic disorder F41.0 and MDD (major depressive disorder), recurrent severe, 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 [facility] [employer] [place] [address] [facility] [address] [address] 09/20/2024 Leti Cespedes CLAUDIA (generalized anxiety disorder) F41.1 ; Panic disorder F41.0 and MDD (major depressive disorder), recurrent severe, 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 [address] [address] 10/10/2024 Hoda Hemann Chronic post-traumatic stress disorder (PTSD) F43.12 ; MDD (major depressive disorder), recurrent severe, 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 ; CLAUDIA (generalized anxiety disorder) F41.1 and Panic disorder F41.[address] [address] 11/14/2024 Hoda Hemann Chronic post-traumatic stress disorder (PTSD) F43.12 ; MDD (major depressive disorder), recurrent severe, 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 ; Panic disorder F41.0 and CLAUDIA (generalized anxiety disorder) F41.[address] [address] 11/17/2024 Leti Cespedes CLAUDIA (generalized anxiety disorder) F41.1 ; Panic disorder F41.0 and MDD (major depressive disorder), recurrent severe, 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 [address] 08/23/2024 Leti Cespedes Assessments Encounter Date Diagnosis (ICD Code) Assessment Notes Treatment Notes Treatment Clinical Notes Section Notes 08/23/2024 CLAUDIA (generalized anxiety disorder) (ICD-10 - F41.1) 08/23/2024 Panic disorder (ICD-10 - F41.0) Discussed and educated pt regarding benzodiazepines are generally not intended for prolonged use and that use can cause tolerance, dependence, depression, and associated memory issues including dementias (this list is not exhaustive). Benzodiazepine use is generally not recommended concurrently with pain medications and/or other controlled substances due to increased risks of profound sedation, respiratory depression, coma, and even . They are not to be used with any alcohol, as this combination can be lethal. 09/20/2024 CLAUDIA (generalized anxiety disorder) (ICD-10 - F41.1) 10/10/2024 MDD (major depressive disorder), recurrent severe, without psychosis (ICD-10 - F33.2) 10/10/2024 Chronic post-traumatic stress disorder (PTSD) (ICD-10 - F43.12) 11/14/2024 Chronic post-traumatic stress disorder (PTSD) (ICD-10 - F43.12) 11/17/2024 CLAUDIA (generalized anxiety disorder) (ICD-10 - F41.1) 11/14/2024 MDD (major depressive disorder), recurrent severe, without psychosis (ICD-10 - F33.2) 11/17/2024 Panic disorder (ICD-10 - F41.0) Discussed and educated pt regarding benzodiazepines are generally not intended for prolonged use and that use can cause tolerance, dependence, depression, and associated memory issues including dementias (this list is not exhaustive). Benzodiazepine use is generally not recommended concurrently with pain medications and/or other controlled substances due to increased risks of profound sedation, respiratory depression, coma, and even . They are not to be used with any alcohol, as this combination can be lethal. 09/20/2024 Panic disorder (ICD-10 - F41.0) Discussed and educated pt regarding benzodiazepines are generally not intended for prolonged use and that use can cause tolerance, dependence, depression, and associated memory issues including dementias (this list is not exhaustive). Benzodiazepine use is generally not recommended concurrently with pain medications and/or other controlled substances due to increased risks of profound sedation, respiratory depression, coma, and even . They are not to be used with any alcohol, as this combination can be lethal. 10/10/2024 CLAUDIA (generalized anxiety disorder) (ICD-10 - F41.1) 08/23/2024 MDD (major depressive disorder), recurrent severe, without psychosis (ICD-10 - F33.2) Lamotrigine is an anticonvulsant and mood stabilizer used in psychiatry. Lamotrigine use is associated with benign rashes (incidence approximately 10%) and rare serious rashes that may require hospitalization and discontinuation of treatment, including Winchester-Maximilian syndrome and toxic epidermal necrolysis. Pt educated on importance of titration schedule and to take the medication only as prescribed. Pt educated that if they miss 5 or more consecutive doses then this medication will need to be re-titrated to reduce risk of rash. If any rash is noted, patient is instructed to stop taking this medication and call office. If rash is severe, they are to present immediately to the emergency room. R/O BAD. Hx of diagnosis in 2020. No clear manic episodic history. MDQ 4, although symptoms also overlap with CLAUDIA, panic. Monitor response to medication and monitor for jose manuel. 09/20/2024 MDD (major depressive disorder), recurrent severe, without psychosis (ICD-10 - F33.2) R/O BAD. Hx of diagnosis in 2020. No clear manic episodic history. MDQ 4, although symptoms also overlap with CLAUDIA, panic. Monitor response to medication and monitor for jose manuel. 10/10/2024 Panic disorder (ICD-10 - F41.0) 11/14/2024 Panic disorder (ICD-10 - F41.0) 11/17/2024 MDD (major depressive disorder), recurrent severe, without psychosis (ICD-10 - F33.2) R/O BAD. Hx of diagnosis in 2020. No clear manic episodic history. MDQ 4, although symptoms also overlap with CLAUDIA, panic. Monitor response to medication and monitor for jose manuel. 11/14/2024 CLAUDIA (generalized anxiety disorder) (ICD-10 - F41.1) 08/23/2024 Other Has had bad reaction to SSRI medications, wellbutrin, abilify in the past. Start Lamictal 25mg daily for mood, anxiety. Will taper up slowly as needed. Start clonazepam 0.5mg qd PRN for anxiety, panic. Has had hydroxyzine in the past which was not helpful, HR too low for propranolol. Discussed benzo intended for short term use. Patient educated on all medications including potential benefits, side effects, risks. Educated on proper dosing schedule and importance of compliance. [place] PDMP report checked and consistent with prescription history, no controlled substance prescriptions from other providers. 09/20/2024 Other Discontinue Lamictal- given pharmacy had it listed as an allergy, pt does not recall allergy or previous reaction. Discussed risk not worth potential benefit. Start lurasidone 20mg daily for mood stabilization. Educated to take with at least 350 calories. Patient educated on all medications including potential benefits, side effects, risks. Educated on proper dosing schedule and importance of compliance. Scheduled for counseling with Hoda 11/17/2024 Other Discontinue latuda due to cost. Discussed initiating new medication, pt hesitates due to potential side effects while starting new job. Start hydroxyzine PRN for now, discussed limitting use of clonazepam. Will plan to start different medication at next follow up after she is adjsuted to new work environment. Patient educated on all medications including potential benefits, side effects, risks. Educated on proper dosing schedule and importance of compliance. -Assessment and treatment plan reviewed with patient. -Compliance with treatment plan importance discussed. -Discussed the risks/benefits of this medication -Discussed medication side effects. -Contact office if symptoms worsen. -Discussed that it can take up to 6-8 weeks to see full therapeutic effects of psychotropic medications. -Crisis prevention hotline [phone]. Plan Of Treatment No Information Insurance Providers Payer Name Payer Address Payer Phone Subscriber Number Group Number Insured Name Patient Relationship to Insured Coverage Start Date Coverage End Date [facility] [address] [place] [address] [id number] Ariel Loren Self - patient is the insured Medical (General) History Medical History History ICD Code Past Psychiatric History: An xiety Disorder,Panic Disorder,Major Depressive Episode,Bipolar Disorder Past Psychiatric History: An xiety Disorder,PTSD,Major Depressive Episode,Bipolar Disorder abdominal aortic aneurysm: No atrial fibrillation: No chronic fatigue syndrome: Yes essential tremor: No hyperlipidemia: No hypertension: No Parkinson's disease: No restless leg syndrome: No stroke: No subdural hematoma: Yes type 1 diabetes mellitus: No type 2 diabetes mellitus: No vitamin B12 deficiency: No vitamin D deficiency: Yes Surgical History Surgery Date(Month/Year) hysterectomy
--- OUTSIDE RECORDS SUMMARY | 2025-02-20 13:47 | XMS_ITS | Clinical Summary ---
Author Organization [facility] Address [address] [place] [address] Phone Care Team Providers Care Personal Development Educator Name Role Phone Pass, Lori Senior INDERJIT, MILL MANAGER Unavailable [phone] Leigh Ann Roach MD Primary Care Provider [phone] Allergies Active Allergy Reactions Criticality Noted Date Comments Buspirone Hallucinations 09/08/2021 Prochlorperazine Anxiety 09/21/2017 Medications busPIRone (BUSPAR) 5 MG TabletIndication s:Anxiety Take 1 Tab by mouth 3 times daily as needed (anxiety). 90 Tab 9 Active sertraline (ZOLOFT) 50 MG TabletIndication s:Depression, unspecified depression type TAKE 1 TABLET BY MOUTH DAILY 30 Tab 0 Active QUEtiapine Fumarate (SEROquel) 50 MG Tablet TAKE 1 TO 2 TABLETS BY MOUTH DAILY AT BEDTIME DIRECTED 1 Active Cholecalciferol (Vitamin D3) 1000 UNIT Tablet Take 1,000 Units by mouth daily. 0 Active albuterol 108 (90 Base) MCG/ACT Aerosol Solution take 2 Puffs by inhalation every 6 hours as needed for Wheezing or Cough. 1 Inhaler 1 Active ARIPiprazole (ABILIFY) 5 MG Tablet TAKE 1 TABLET BY MOUTH EVERY DAY DIRECTED.. REPLACING QUETIAPINE 1 Active naproxen (NAPROSYN) 500 MG Tablet Take 1 Tablet by mouth 2 times daily as needed for Moderate or more severe pain. 15 Tablet 3 Active traMADol (ULTRAM) 50 MG TabletIndication s:Infected dental caries Take 1 Tablet by mouth every 6 hours as needed for Moderate or more severe pain. 12 Tablet 3 Active Active Problems Problem Noted Date Diagnosed Date Numbness and tingling in both hands 10/03/2019 Vitamin D deficiency 09/01/2019 Depression 02/28/2019 Insomnia 02/28/2019 Periodontal disease 02/28/2019 Anxiety 01/13/2019 Vertigo 01/13/2019 Encounters Date Type Department Care Team Description 12/09/2024 1:43 PM COMMANDING [employer]ICER [employer] - 12/09/2024 4:19 PM COMMANDING [employer] Emergency [facility] Emergency [address] [place] [address] Sandi Buck APRN, MILL MANAGER Pelvic pain Discharge Disposition: Discharged to home or Selfcare 12/09/2024 Travel from Last 3 Months Immunizations Immunization Administration Dates Next Due DTAP VACCINE 07/04/1996 DTP Vaccine 07/18/1987, 4,02/13/1983, 983,1982 Influenza Vaccine, Quadrivalent, PF 09/01/2019 MMR Vaccine 08/20/1987,02/12/1984 OPV 07/18/1987, 4,02/13/1983, 983,1982 TDAP Vaccine 09/08/2019 Family History Medical History Relation Name Comments Kidney Disease Father Kidney Stones Father Stroke Maternal Grandfather Stroke Maternal Grandmother Hypertension Mother Cancer Paternal Grandfather bone ma rrow Cancer Paternal Uncle bone marrow Cancer Sister uterine cancer Cervical Cancer Sister Relation Name Status Comments Father Alive Maternal Grandfather Maternal Grandmother Mother Alive Paternal Grandfather Paternal Uncle Sister Social History Tobacco Use Types Packs/Day Years Used Date Smoking Tobacco: Never Smokeless Tobacco: Never Alcohol Use Standard Drinks/Week Comments Not Currently 2 (1 standard drink = 0.6 oz pure alcohol) patient states she may drink once during the week PHQ-2 Answer Date Recorded PHQ-2 Score 16 08/15/2019 Sexually Active Control Partners Comments Yes Surgical Male Comments No Sex and Gender Information Value Date Recorded Sex Assigned at Not on file Legal Sex Female 10:20 PM CDT Gender Identity Not on file Sexual Orientation Not on file Last Filed Vital Signs Vital Sign Reading Time Taken Comments Blood Pressure 120/75 12/09/2024 4:17 PM [employer]ING [employer] Pulse 83 12/09/2024 4:17 PM [employer]ING [employer] Temperature 36.7 C (98 F) 12/09/2024 12:55 PM [employer]ING [employer] Respiratory Rate 16 12/09/2024 4:17 PM [employer]ING [employer] Oxygen Saturation 100% 12/09/2024 4:17 PM COMMANDING [employer] Inhaled Oxygen Concentration - - Weight 70.8 kg (156 lb) 12/09/2024 12:55 PM [employer]ING [employer] Height 162.6 cm (5' 4 ) 12/09/2024 12:55 PM [employer]ING [employer] Body Mass Index 26.78 12/09/2024 12:55 PM [employer]ING [employer] Plan of Treatment Health Maintenance Due Date Last Done Comments Hepatitis C Virus (HCV) Screening 1982 Hepatitis B Immunization (1 of 3 - 19+ 3-dose series) 2001 Mammogram 12/09/2023 12/09/2022 Influenza Immunization (#1) 2024 09/01/2019 SARS-COV-2 Immunization (3 - season) 2024 10/02/2021, 09/11/2021 DTaP/Tdap/Td Immunization (8 - Td or Tdap) 09/08/2029 09/08/2019, 07/04/1996, 07/18/1987, Additional history exists Respiratory Syncytial Virus (RSV) Immunization (Adult) (1 - 1-dose 75+ series) 2057 Discussion re Starting/Frequency of Mammograms Completed 12/09/2022 Meningococcal Immunization (ACWY) Aged Out No longer eligible based on patient's age to complete this topic Pneumococcal Immunization Combined Aged Out No longer eligible based on patient's age to complete this topic Rotavirus Immunization Aged Out No lo nger eligible based on patient's age to complete this topic Procedures Procedure Name Priority Date/Time Associated Diagnosis Comments CT ABDOMEN PELVIS W/ CONTRAST Stat with Interpretation 12/09/2024 2:27 PM [employer]ING [employer] GOLD TOP TUBE STAT 12/09/2024 1:03 PM [employer]ING [employer] BLUE TOP TUBE STAT 12/09/2024 1:03 PM [employer]ING [employer] CBC WITH AUTO DIFFERENTIAL STAT 12/09/2024 1:03 PM [employer] EXTRA TUBES STAT 12/09/2024 1:03 PM [employer]ING [employer] URINALYSIS REFLEX IF INDICATED BY ABNORMAL RESULTS STAT 12/09/2024 1:03 PM COMMANDING [employer] CMP (COMPREHENSIVE METABOLIC PANEL) STAT 12/09/2024 1:03 PM COMMANDING [employer] COMPLETE BLOOD COUNT (CBC) WITH DIFF STAT 12/09/2024 1:03 PM COMMANDING [employer] from Last 3 Months Results * CT ABDOMEN PELVIS W/ CONTRAST (12/09/2024 2:27 PM COMMANDING OFF[employer]) Anatomical Region Laterality Modality Abdomen N/A Computed Tomogra phy 12/09/2024 3:17 PM [employer]ING [employer] Impressions 12/09/2024 3:20 PM [employer]ING [employer] IMPRESSION: By report, the patient is status post hysterectomy in August 2024. There is a rounded area of soft tissue in the expected location of the hysterectomy bed measuring 5.0 x 5.2 x 5.3 cm. Please correlate with the surgical history to correlate for partial versus total hysterectomy. Otherwise, this could represent significant thickening of the vaginal cuff. This can be correlated with gynecologic exam and, if clinically warranted, MRI. Mild urinary bladder wall thickening may be related to underdistention. Please correlate clinically to exclude cystitis. 1.8 cm crenulated rim enhancing right adnexal focus, probably a corpus luteum cyst. Multiple indeterminate attenuation renal lesions, potentially cysts with hemorrhagic or proteinaceous components. Recommend nonemergent follow-up with renal ultrasound. Narrative 12/09/2024 3:20 PM [employer]ING [employer] EXAM DESCRIPTION: CT ABDOMEN PELVIS W/ CONTRAST REASON FOR STUDY: pain in right armpit x 4 days, pelvic pain x 3 days. Hx of hysterectomy with mesh in August of 2024, HTN TECHNIQUE: CT scan of the abdomen and pelvis performed with intravenous and without oral contrast using helical scanning technique with dynamic intravenous contrast injection. Reconstructed coronal and sagittal MPR images reviewed. All images stored on PACS. Automated exposure control was used as a dose optimization technique for this examination. CONTRAST TYPE/DOSE: 78mL of IOPAMIDOL 76 % IV SOLN injected via Intravenous COMPARISON: None available FINDINGS: LOWER CHEST: No significant pulmonary abnormalities. No effusion. LIVER: Normal size. No identified cystic or solid masses. GALLBLADDER: Unremarkable BILE DUCTS: No intrahepatic or extrahepatic ductal dilatation. SPLEEN: Normal size. No focal lesions. PANCREAS: No identified cystic or solid masses. No significant calcifications. No adjacent inflammation or peripancreatic fluid collections. Pancreatic duct not dilated. ADRENALS: Normal. KIDNEYS/URINARY TRACT: There is an indeterminate attenuation 10 mm lesion in the upper pole of the right kidney on image 58 of series 2, potentially a cyst with hemorrhagic or proteinaceous components. Similar smaller focus at the lower pole the right kidney on image 80 of series 2. Additional similar foci in the interpolar left kidney and lower pole left kidney. Recommend follow-up with renal ultrasound . mild urinary bladder wall thickening may be related to underdistention. Please correlate clinically to exclude cystitis. GI: There are colonic diverticuli without evidence of acute diverticulitis.. No colonic wall thickening or evidence of obstruction. The appendix is normal. The distal esophagus is unremarkable in its visualized portions. The stomach appears unremarkable. Small bowel is normal in course and in caliber and without wall thickening or evidence of obstruction. PERITONEUM: No ascites or free air. RETROPERITONEUM: No mass or adenopathy. REPRODUCTIVE: By report, the patient is status post hysterectomy in August 2024.. There is a rounded area of soft tissue in the expected location of the hysterectomy bed measuring 5.0 x 5.2 by 5.3 cm. Please correlate with the surgical history to correlate for partial versus total hysterectomy. Otherwise, this could represent substantial significant thickening of the vaginal cuff. Please correlate with the gynecologic exam. There is somewhat crenulated rim enhancing right adnexal focus measuring 1.8 cm, probably a corpus luteum cyst. VASCULATURE: No venous thrombosis is seen. Unremarkable visualized arteries. MUSCULOSKELETAL: Minimal degenerative changes. No aggressive bone lesion or acute fracture seen. OTHER: No other abnormality. THIS IS AN ELECTRONICALLY VERIFIED FINAL REPORT 12/09/2024 3:17 PM - Electronically signed by Yonny Rogers M.D. MZ: NORA Report ID: [id number] Reading Location: [id number] Procedure Note Yonny Rogers MD - 12/09/2024 EXAM DESCRIPTION: CT ABDOMEN PELVIS W/ CONTRAST REASON FOR STUDY: pain in right armpit x 4 days, pelvic pain x 3 days. Hx of hysterectomy with mesh in August of 2024, HTN TECHNIQUE: CT scan of the abdomen and pelvis performed with intravenous and without oral contrast using helical scanning technique with dynamic intravenous contrast injection. Reconstructed coronal and sagittal MPR images reviewed. All images stored on PACS. Automated exposure control was used as a dose optimization technique for this examination. CONTRAST TYPE/DOSE: 78mL of IOPAMIDOL 76 % IV SOLN injected via Intravenous COMPARISON: None available FINDINGS: LOWER CHEST: No significant pulmonary abnormalities. No effusion. LIVER: Normal size. No identified cystic or solid masses. GALLBLADDER: Unremarkable BILE DUCTS: No intrahepatic or extrahepatic ductal dilatation. SPLEEN: Normal size. No focal lesions. PANCREAS: No identified cystic or solid masses. No significant calcifications. No adjacent inflammation or peripancreatic fluid collections. Pancreatic duct not dilated. ADRENALS: Normal. KIDNEYS/URINARY TRACT: There is an indeterminate attenuation 10 mm lesion in the upper pole of the right kidney on image 58 of series 2, potentially a cyst with hemorrhagic or proteinaceous components. Similar smaller focus at the lower pole the right kidney on image 80 of series 2. Additional similar foci in the interpolar left kidney and lower pole left kidney. Recommend follow-up with renal ultrasound . mild urinary bladder wall thickening may be related to underdistention. Please correlate clinically to exclude cystitis. GI: There are colonic diverticuli without evidence of acute diverticulitis.. No colonic wall thickening or evidence of obstruction. The appendix is normal. The distal esophagus is unremarkable in its visualized portions. The stomach appears unremarkable. Small bowel is normal in course and in caliber and without wall thickening or evidence of obstruction. PERITONEUM: No ascites or free air. RETROPERITONEUM: No mass or adenopathy. REPRODUCTIVE: By report, the patient is status post hysterectomy in August 2024.. There is a rounded area of soft tissue in the expected location of the hysterectomy bed measuring 5.0 x 5.2 by 5.3 cm. Please correlate with the surgical history to correlate for partial versus total hysterectomy. Otherwise, this could represent substantial significant thickening of the vaginal cuff. Please correlate with the gynecologic exam. There is somewhat crenulated rim enhancing right adnexal focus measuring 1.8 cm, probably a corpus luteum cyst. VASCULATURE: No venous thrombosis is seen. Unremarkable visualized arteries. MUSCULOSKELETAL: Minimal degenerative changes. No aggressive bone lesion or acute fracture seen. OTHER: No other abnormality. THIS IS AN ELECTRONICALLY VERIFIED FINAL REPORT 12/09/2024 3:17 PM - Electronically signed by Yonny Rogers M.D. MZ: MZ Report ID: [id number] Reading Location: [place] [address] IMPRESSION: By report, the patient is status post hysterectomy in August 2024. There is a rounded area of soft tissue in the expected location of the hysterectomy bed measuring 5.0 x 5.2 x 5.3 cm. Please correlate with the surgical history to correlate for partial versus total hysterectomy. Otherwise, this could represent significant thickening of the vaginal cuff. This can be correlated with gynecologic exam and, if clinically warranted, MRI. Mild urinary bladder wall thickening may be related to underdistention. Please correlate clinically to exclude cystitis. 1.8 cm crenulated rim enhancing right adnexal focus, probably a corpus luteum cyst. Multiple indeterminate attenuation renal lesions, potentially cysts with hemorrhagic or proteinaceous components. Recommend nonemergent follow-up with renal ultrasound. us Sandi Buck POLARITY TESTER, MILL MANAGER IM CT ORDERABLES Fin al Result * Urinalysis w/ Reflex (12/09/2024 1:03 PM COMMANDING OFFICER [employer]) SPECIFIC GRAVITY 1.010 1.003 - 1.030 12/09/2024 1:23 PM COMMANDING [employer] [facility] URINE PH 8.0 5.0 - 9.0 12/09/2024 1:23 PM COMMANDING [employer] [facility] WBC ESTERASE Negative Negative 12/09/2024 1:23 PM [employer]ING [employer] [facility] NITRITE Negative Negative 12/09/2024 1:23 PM COMMANDING [employer] [facility] PROTEIN, RANDOM URINE Negative Negative 12/09/2024 1:23 PM [employer]ING [employer] [facility] URINE GLUCOSE, QUAL Negative Negative 12/09/2024 1:23 PM COMMANDING [employer] [facility] URINE KETONES Negative Negative 12/09/2024 1:23 PM [employer]ING [employer] [facility] UROBILINOGEN Normal Normal mg/dL 12/09/2024 1:23 PM COMMANDING OFF[employer]QU[employer] [facility] URINE BLOOD Negative Negative jose luis/ul 12/09/2024 1:23 PM [employer]ING [employer] [facility] URINALYSIS COLOR Yellow 12/09/19 25 1:23 PM COMMANDING [employer] [facility] URINALYSIS CLARITY Clear 12/09/2024 1:23 PM [employer]ING [employer] [facility] Urine URINE SPECIMEN / Unknown Non-Phlebotomy Collection / Unknown 12/09/2024 1:03 PM COMMANDING [employer] 12/09/2024 1:11 PM COMMANDING [employer] us Sandi Buck APRN, MILL MANAGER URINE ORDERABLES Isaura l Result [facility] [address] [place] [address] * Gold Top Tube (12/09/2024 1:03 PM COMMANDING OFFIC[employer]) Blood No Phlebotomy Charged / Unknown 12/09/2024 1:03 PM COMMANDING [employer] 12/09/2024 1:15 PM [employer]ING [employer] us Sandi Buck APRN, MILL MANAGER CHEMISTRY ORDERABLES Final Result Performing Organization Address City/[facility]/ZIP Co de Phone Number [facility] [address] [place] [address] * Blue Top Tube (12/09/2024 1:03 PM COMMANDING OFF[employer]) Blood No Phlebotomy Charged / Unknown 12/09/2024 1:03 PM COMMANDING [employer] 12/09/2024 1:15 PM COMMANDING [employer] us Sandi Buck APRN, MILL MANAGER HEMATOLOGY ORDERABLES Final Result Performing Organization Address City/[facility]/ZIP Co de Phone Number [facility] [address] [place] [address] * (ABNORMAL) CBC with Auto Differential (12/09/2024 1:03 PM COMMANDING OFF[employer]) Pathologist [facility] WBC 5.16 4.00 - 12.00 10(3)/mcL 12/09/2024 1:14 PM [facility] RBC 4.44 3.80 - 5.30 10(6)/mcL 12/09/2024 1:14 PM [facility] HEMOGLOBIN (HGB) 13.3 12.0 - 15.8 g/dL 12/09/2024 1:14 PM [facility] HEMATOCRIT (HCT) 39.5 36.0 - 47.0 % 12/09/2024 1:14 PM [facility] MCV 89.0 82.0 - 96.0 fL 12/09/2024 1:14 PM [facility] MCH 30.0 26.0 - 34.0 pg 12/09/2024 1:14 PM [facility] MCHC 33.7 31.0 - 36.0 g/dL 12/09/2024 1:14 PM [facility] PLATELET COUNT 236 140 - 440 10(3)/mcL 12/09/2024 1:14 PM [facility] RDW 12.4 11.8 - 15.5 % 12/09/2024 1:14 PM [facility] MPV 9.5(L) 9.7 - 12.4 fL 12/09/2024 1:14 PM [facility] NEUTROPHILS 57.3 47.0 - 73.0 % 12/09/2024 1:14 PM [facility] LYMPHOCYTES 32.6 18.0 - 42.0 % 12/09/2024 1:14 PM [facility] MONOCYTES 9.1 4.0 - 12.0 % 12/09/2024 1:14 PM [facility] EOSINOPHILS 0.6 0.0 - 5.0 % 12/09/2024 1:14 PM [facility] BASOPHILS 0.4 0.0 - 1.0 % 12/09/2024 1:14 PM [facility] ABSOLUTE NEUTROPHILS 2.96 1.60 - 7.70 10(3)/[facility] 12/09/2024 1:14 PM [facility] ABSOLUTE LYMPHOCYTES 1.68 1.30 - 3.20 10(3)/[facility] 12/09/2024 1:14 PM [facility] ABSOLUTE MONOCYTES 0.47 0.20 - 1.00 10(3)/[facility] 12/09/2024 1:14 PM [employer] [facility] ABSOLUTE EOSINOPHIL 0.03 0.00 - 0.40 10(3)/[facility] 12/09/2024 1:14 PM [facility] ABSOLUTE BASOPHILS 0.02 0.00 - 0.10 10(3)/[facility] 12/09/2024 1:14 PM [facility] NRBC PER 100 WBC 0 12/09/19 25 1:14 PM [facility] Blood Venipuncture / Unknown 12/09/2024 1:03 PM [employer]ING [employer] 12/09/2024 1:11 PM [employer]ING [employer] us Sandi Buck POLARITY TESTER, MILL MANAGER HEMATOLOGY ORDERABLES Final Result [facility] [address] [place] [address] * (ABNORMAL) CMP (12/09/2024 1:03 PM COMMANDING [employer]) SODIUM 139 136 - 145 mmol/L 12/09/2024 1:38 PM [employer] [facility] POTASSIUM 4.0 3.5 - 5.1 mmol/L 12/09/2024 1:38 PM [facility] CHLORIDE 106 98 - 107 mmol/L 12/09/2024 1:38 PM [facility] CO2, VENOUS 26 22 - 30 mmol/L 12/09/2024 1:38 PM [facility] ANION GAP 11.0 <18.0 mmol/L 12/09/2024 1:38 PM [facility] GLUCOSE 137(H) 70 - 99 mg/dL 12/09/2024 1:38 PM [facility] BUN 10 5 - 18 mg/dL 12/09/2024 1:38 PM [facility] CREATININE, BLOOD 0.72 0.60 - 1.00 mg/dL 12/09/2024 1:38 PM [facility] BUN/CREATININE RATIO 14 12 - 20 ratio 12/09/2024 1:38 PM [facility] TOTAL PROTEIN 8.0 6.3 - 8.2 g/dL 12/09/2024 1:38 PM [facility] ALBUMIN 4.5 3.5 - 5.0 g/dL 12/09/2024 1:38 PM [facility] A/G RATIO 1.3 1.0 - 2.2 12/09/2024 1:38 PM [facility] CALCIUM 9.6 8.7 - 10.5 mg/dL 12/09/2024 1:38 PM [facility] T BILI 0.5 0.2 - 1.2 mg/dL 12/09/2024 1:38 PM [facility] SGOT (AST) 19 5 - 34 U/L 12/09/2024 1:38 PM [facility] SGPT (ALT) 14 0 - 55 U/L 12/09/2024 1:38 PM [facility] ALKALINE PHOSPHATASE 58 40 - 150 U/L 12/09/2024 1:38 PM [facility] GFR, ESTIMATED >60 >=60 12/09/2024 1:38 PM [facility] Comment: Creatinine Clearance is the preferred criteria for selecting drug dose adjustments in renally impaired patients. The GFR is provided as additional pertinent clinical information. GFR is reported in mL/min/1.73 sq m. Calculation based on the Chronic Kidney Disease Epidemiology Collaboration (CKD- EPI) equation refit without adjustment for race. GFR, EST. >60 >=60 025 1:38 PM [facility] GFR, EST. NONAFRICAN >60 >=60 12/09/2024 1:38 PM [employer]ING [employer] [facility] Blood Venipuncture / Unknown 12/09/2024 1:03 PM [employer]ING [employer] 12/09/2024 1:11 PM [employer] Sandi Buck POLARITY TESTER, MILL MANAGER CHEMISTRY ORDERABLES Final Result [facility] [address] [place] [address] from Last [address] [place] [address] [place] [address] [facility] Care Teams Personal Development Educator Relationship Specialty Start Date End Date Leigh Ann Roach MD [address] [facility] [address] [place] [address] PCP - General Family Medicine 04/18/23 Lori Shabazz APRN, MILL MANAGER [address] [facility] [address] [place] [address] Certified Nurse Practitioner 10/03/19
--- OUTSIDE RECORDS SUMMARY | 2025-02-20 13:47 | XMS_ITS ---
Author Organization [facility] [employer] Address [address] [place] [address] Care Team Providers Care Skating Rink Ice Maker Name Role Phone Leti Cespedes Unavailable [phone] Allergies Allergen (clinical drug ingredient) Drug/Non Drug [...] clindamycin Clindamycin Unknown Drug Allergy Act tirso REASON FOR VISIT follow up Medications Medication SIG (Take, Route, Fr equency, [...] Former smoker When did you start smoking? 2016 When did you stop smoking? 2021 How [...] past year? 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 11/17/2024 MDD (major depressive disorder), recurrent severe, without psychosis (ICD-10 - F33.2) R/O BAD. Hx of diagnosis in 2020. No clear manic episodic history. MDQ 4, although symptoms also overlap with CLAUDIA, panic. Monitor response to medication and monitor for jose manuel. 11/17/2024 Other Discontinue latuda due to cost. [...] effects of psychotropic medications. -Crisis prevention hotline 621. Plan Of Treatment Medication Medication Name Sig Start Date Stop Date Notes Lurasidone HCl 20 MG 1 tablet in the lilibeth jese with food Orally Once a day for 30 days clonazePAM 0.5 MG 1 tablet Orally Once a day for 30 days hydrOXYzine HCl 25 MG 1 tablet Orally tw ice a day for 30 days 11/17/2024 Treatment Notes Assessment Notes Panic disorder Discussed and educat ed pt regarding benzodiazepines are generally not intended [...] alcohol, as this combination can be lethal. Other Discontinue latuda due to cost. Discussed [...] proper dosing schedule and importance of compliance. Next Appt Details Follow Up: 2 Months, Reason: Progress Notes * Araceli SERRANOOB:[birth year] (44 yo F)Acc No.[id number]:11/17/2024 Patient: Loren OVALLE Provider: DADA VIVAR :1980 A ge:44 Y S ex:Female Date:11/17/2024 Phone: Address:[address] [id number] Subjective: * Chief Complaints: * F ollow up * HPI: P ast Psychiatric Hospitalizations: Previous psychiatric hospitalizations P revious Psychiatric Hospitalization N o. Social hx: Divorcwed, has a current parnter. H as two children, ages 18 and 20. 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 Medical hx: h ysterectomy Past psychiatric hx- Past [facility] admissions/IOP/PHP: none Previous suicide attempts: one attempt about 20 years ago, tried to slit her throat-did not go to the hospital. Family psychiatric hx: mother-depression, CLAUDIA; maternal grandfather- CLAUDIA, MDD; maternal great grandmother completed suicide; father- anger issues . Previous medications: does not recall previous medications. Lamictal, abilify, several SSRI medications. Substance use hx: denies Nicotine: denies Alcohol: denies. H istory of Presenting Problem: Anxiety w ith excessive worry, with low energy, with panic attacks, with restlessness, which has been long-standing, aggravated by, difficult work, financial and/or relationship issues. D epression R ates depression 5/10 with 10 being most severe. Denies SI. . M ood lability w ith racing thoughts, with irritable mood, with hyperactivity or motor restlessness, with distractability. P sychosis n o hx psychosis . S uicidal ideation d enies current suicidal ideation . Here for follow up. Lurasidone started last apt. She is starting a new job next month. She did not start the latuda, as it was too expensive. Continues to have anxiety and feel on edge. Continues to have irritability and feel on edge. Continues to struggle with trusting others, causing relationship conflict with significant other. Feels when she leaves her new job her stress will subside. D epression Screening: CLAUDIA-7 (2018 Edition) F eeling nervous, anxious, or on edge?Nearly every day, N ot being able to stop or control worrying N early every day, W orrying too much about different things N early every day, T rouble relaxing N early every day, B eing so restless that it is hard to sit still N early every day, B ecoming easily annoyed or irritable N early every day, F eeling afraid as if something awful might happen N early every day, I f you checked any problems, how difficult have they made it for you to do your work, take care of things at home, or get along with other people? N ot difficult at all. C [place]-Suicide Severity Rating Scale: Suicide Risk (CSRS-screener) i n the past one month Have you wished you were or wished you could go to sleep and not wake up? N o, i n the past one month Have you actually had any thoughts of killing yourself? N o, H ave you ever done anything, started to do anything, or prepared to do anything to end your life? N o. D epression screening: PHQ-9 L ittle interest or pleasure in doing things S everal days, F eeling down, depressed, or hopeless M ore than half the days, T rouble falling or staying asleep, or sleeping too much N early every day, F eeling tired or having little energy N early every day, P oor appetite or overeating N ot at all, F eeling bad about yourself or that you are a failure, or have let yourself or your family down N early every day, T rouble concentrating on things, such as reading the newspaper or watching television?More than half the days, M oving or speaking so slowly that other people could have noticed; or the opposite, being so fidgety or restless that you have been moving around a lot more than usual?Not at all, T houghts that you would be better off or of hurting yourself in some way Not at all, T otal Score 1 4, I nterpretation M oderate Depression. I ntervention D epression Screening Findings P ositve, F ollow-Up for Depression M ental health treatment assessment, Patient follow-up to return when and if necessary, S uicide Risk Assessment Performed , A dditional Evaluation for Depression P sychiatric interview and evaluation, N patrick of the standardized tool used for adult depression screening: P atient Health Questionnaire (PHQ-9). * ROS: P sychiatric: Patient denies a uditory / visual hallucinations, delusions, stressors, psychosis, Dissociations. P atient complains of a nxiety, depressed mood, irritability, panic attacks. Sean RATLIFF for details. * Medical History: * Surgical History: h ysterectomy * Hospitalization/Major Diagno stic Procedure: * Family History: F ather: anger. M other: MDD, CLAUDIA. M aternal Grandfather: MDD, CLAUDIA. 2 daughter(s) . . maternal great grandmother completed suicide. * Social History: T obacco Use: T obacco Control (Standard) T obacco use: F ormer smoker, W hen did you start smoking? 2 016, W hen did you stop smoking? 2 022, H ow long has it been since you last smoked? 1 -5 years. D rug/Alcohol: D rugs H ave you used drugs other than those for medical reasons in the past 12 months??Yes, M ethamphetamine? N o, C rack? Y es, L SD? N o, E cstacy? N o, P rescription opiates? N o, M arijuana? Y es, K etamine? N o, P CP? No, I s there a minor (18 years or younger) at risk at home? N o, A re you still using? Y es. A BRANDEN-C (Standard) D id you have a drink containing alcohol in the past year? Yes, H ow often did you have six or more drinks on one occasion in the past year? L ess than monthly (1 point), H ow many drinks did you have on a typical day when you were drinking in the past year? 1 or 2 drinks (0 point), H ow often did you have a drink containing alcohol in the past year? M onthly or less (1 point). 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 Safety issues A re there any firearms in the house? N o. A dvance Care Planning A re you your own decision-maker Y es, D o you have Power of [place] Polisher for Health or Medical? N o. S ocial History: H ousejossue M arital Status: D ivorced, N umber of Adults in household: 4 ,?Number of Children in Household: 0 , L evel of Education: N ot Finished College. * Medications: T akingclonazePAM 0.5 MG Tablet 1 tablet Orally Once a day As neededTaking clonazePAM 0.5 MG Tablet 1 tablet Orally Once a day As neededDiscontinuedPenicillin V Potassium 250 MG Tablet 1 tablet Orally Twice a day Lurasidone HCl 20 MG Tablet 1 tablet in the evening with food Orally Once a day take with at least 350 caloriesMedication List reviewed and reconciled with the patientDiscontinued Penicillin V Potassium 250 MG Tablet 1 tablet Orally Twice a day Discontinued Lurasidone HCl 20 MG Tablet 1 tablet in the evening with food Orally Once a day take with at least 350 caloriesMedication List reviewed and reconciled with the patient * Allergies: A bilifyAlbuterolCitalopram HydrobromideZincWellbutrinStadolClindamycinLaMICtalno[Allergies Verified] Objective: * Vitals: * Examination: P sychiatry: Appearance: w ell-groomed. Abnormal body movements: n one. Affect / mood: d epressed. Attention: g ood. Attitude: c ooperative. Homicidal ideation: n one. Suicidal ideation: n one. Degree of awareness of surroundings: w ithin normal limits.? Delusions: n o. Hallucinations: n o. Insight: g ood. Judgement: g ood. Orientation: a wake, alert and oriented x 3. Perceptual disorders: n o perceptual disorder noted. Psychomotor activity: w ithin normal range. Speech / language: n ormal rate, volume, and articulation (RVR), clear and coherent. Thought content: a ppropriate. Thought process: i ntact. Assessment: * Assessment: 1. G AD (generalized anxiety disorder) - F41.1 (Primary) 2 . P anic disorder - F41.0 3 . M DD (major depressive disorder), recurrent severe, without psychosis - F33.2 Plan: * Treatment: 2. P anic disorder Stop clonazePAM Tablet, 0.5 MG, 1 tablet, Orally, Once a day As needed, 30 days, 30 Tablet. ? Notes: Discussed and educated pt regarding benzodiazepines are [...] alcohol, as this combination can be lethal. 3. M DD (major depressive disorder), recurrent severe, without psychosis Stop Lurasidone HCl Tablet, 20 MG, 1 tablet in the evening with food, Orally, Once a day take with at least 350 calories, 30 days, 30. Clinical Notes: R/O BAD. Hx of diagnosis in 2020. No clear manic episodic history. MDQ 4, although symptoms also overlap with CLAUDIA, panic. Monitor response to medication and monitor for jose manuel. ? 4. O thers Notes: Discontinue latuda due to cost. Discussed initiating [...] proper dosing schedule and importance of compliance. Clinical Notes: -Assessment and treatment plan reviewed with patient. -Compliance with treatment plan importance discussed. -Discussed the risks/benefits of this medication -Discussed medication side effects. -Contact office if symptoms worsen. -Discussed that it can take up to 6-8 weeks to see full therapeutic effects of psychotropic medications. -Crisis prevention hotline 988. * Procedure Codes: G 2197 Screen hlthy etoh [id number] BEHAV ASSMT W/SCORE & DOCD/STAND [id number] VISIT COMPLEXITY INHERENT TO ONGOING CARE RELATED TO A PATIENT'S SINGLE, SERIOUS CONDITION OR A COMPLEX [id number] CLIN DEPRESSION SCREEN DOC * Preventive Medicine: Counseling: S afety: D iscussed the risk and benefits of medication(s)? Y es. Screenings: D epression screening H ave you had a recent depression screening??Yes. * Follow Up: 2 Months * Billing Information: * Visit Code: 45171 OFFICE OUTPATIENT VISIT 25 MINUTES DETAILED HISTORY AND EXAM/MODERATE MEDICAL DECISION MAKING. * Procedure Codes: G2197 [place]. 88911 BEHAV ASSMT W/SCORE & DOCD/STAND INSTRUMENT. G2211 VISIT COMPLEXITY INHERENT TO ONGOING CARE RELATED TO A PATIENT'S SINGLE, SERIOUS CONDITION OR A COMPLEX CONDITION. G8431 CLIN DEPRESSION SCREEN DOC. * LEAD Sign off status: Completed true * Provider: DADA VIVAR Date: 01/18/2024 Generated for Dolores alfonso/Abbi/Ritaitting on: 0 02/20/2025 01:47 PM CDT History and Physical Notes * HPI (History of Present Illness) Category Sub-Category Detail Notes Category Not es History of Presenting Problem Anxiety with excessive worry, with l ow energy, with panic attacks, with restlessness, which has been long-standing, aggravated by, difficult work, financial and/or relationship issues Here for follow up. Lurasidone started last apt. She is starting a new job next month. She did not start the latuda, as it was too expensive. Continues to have anxiety and feel on edge. Continues to have irritability and feel on edge. Continues to struggle with trusting others, causing relationship conflict with significant other. Feels when she leaves her new job her stress will subside. Depression Rates depression 5/1 0 with 10 being most severe. Denies SI. Suicidal ideation denies current suici cindy ideation Psychosis no hx psychosis Mood lability with racing thoughts , with irritable mood, with hyperactivity or motor restlessness, with distractability Past Psychiatric Hospitalizations Previous psychiatric hospitalizations Previous Psychiatric Hospitalization: No Social hx: Divorcwed, has a current parnter. Has two children, ages 18 and 20. 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 Medical hx: hysterectomy Past psychiatric hx- Past [facility] admissions/IOP/PHP: none Previous suicide attempts: one attempt about 20 years ago, tried to slit her throat-did not go to the hospital. Family psychiatric hx: mother-depression, CLAUDIA; maternal grandfather- CLAUDIA, MDD; maternal great grandmother completed suicide; father- anger issues . Previous medications: does not recall previous medications. Lamictal, abilify, several SSRI medications. Substance use hx: denies Nicotine: denies Alcohol: denies Depression screening PHQ-9 Little interest or pleasure in doing things: Several days Feeling down, depressed, or hopeless: Mo re than half the days Trouble falling or staying asleep, or sl eeping too much: Nearly every day Feeling tired or having little energy: N early every day Poor appetite or overeating: Not at all Feeling bad about yourself o r that you are a failure, or have let yourself or your family down: Nearly every day Trouble concentrating on thi ngs, such as reading the newspaper or watching television: More than half the days Moving or speaking so slowly that other people could have noticed; or the opposite, being so fidgety or restless that you have been moving around a lot more than usual: Not at all Thoughts that you would be b oma off or of hurting yourself in some way: Not at all Total Score: 14 Interpretation: Moderate Depression Intervention Depression Screening Findings: P ositve Follow-Up for Depression: [facility] health treatment assessment, Patient follow-up to return when and if necessary Suicide Risk Assessment Performed: Additional Evaluation for De pression: Psychiatric interview and evaluation Name of the standardized too l used for adult depression screening:: Patient Health Questionnaire (PHQ-9) Depression Screening CLAUDIA-7 (2018 Edition) Oumou g nervous, anxious, or on edge: Nearly every day Not being able to stop or control worryi ng: Nearly every day Worrying too much about different things : Nearly every day Trouble relaxing: Nearly every day Being so restless that it is hard to sit still: Nearly every day Becoming easily annoyed or irritable: Ne adamaris every day Feeling afraid as if something awful milena ht happen: Nearly every day If you checked any problems, how difficult have they made it for you to do your work, take care of things at home, or get along with other people?: Not difficult at all [place]-Suicide Severity Rating Scale Suicide Risk (CSRS-screener) in the past one month Have you wished you were or wished you could go to sleep and not wake up?: No in the past one month Have y ou actually had any thoughts of killing yourself?: No Have you ever done anything, started to do anything, or prepared to do anything to end your life?: No Examination Category Sub-Category Detail Notes Category Not es Psychiatry Appearance: well-groomed Attitude: cooperative Psychomotor activity: within normal rang e Abnormal body movements: none Attention: good Degree of awareness of surroundings: wit hin normal limits Orientation: awake, alert and marika ented x 3 Affect / mood: depressed Speech / language: normal rate, volume, and articulation (RVR), clear and coherent Insight: good Judgement: good Thought process: intact Thought content: appropriate Perceptual disorders: no perceptual diso rder noted Suicidal ideation: none Homicidal ideation: none Delusions: no Hallucinations: no
--- OUTSIDE RECORDS SUMMARY | 2025-02-20 13:47 | XMS_ITS | Clinical Summary ---
Author Organization [facility] Address [address] [place] [address] Care Team Providers Care Upholsterer Limousine [employer] Hearse Name Role Phone Leigh Ann Roach MD Primary Care Provider [phone] Carole Freitas PT Unavailable Unavailable Emma Hendricks AGRICULTURAL SCIENCE PROFESSOR Unavailable [phone] Allergies Active Allergy Reactions Criticality Noted Date [...] MMR 08/20/1987,02/12/1984 OPV 07/18/1987, 4,02/13/1983,12/11,1982 Tdap 09/08/2019 Medical History Medical History Date Comments Depression Hypertension Anxiety Family History Medical History Relation Name Comments Cancer Father Cancer Sister Relation Name Status Comments Father Sister Social History Tobacco Use Types Packs/Day [...] on file Legal Sex Female 7:17 PM 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 Gender Identity Not on file Sexual Orientation Not on file Obstetrics History Para Term AB IAB SAB Ectopic Multiple Livin g Live Births 2 2 2 Date Outcome GA Total Labor Labor/2nd/3rd Weight Sex Type Anes PTL Carol A1 A5 Name Clin Term Term Last Filed Vital Signs Vital Sign Reading Time Taken Comments Blood Pressure 127/84 12/17/2022 10:31 AM 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 Pulse 76 12/17/2022 10:31 AM 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 Temperature 36.8 C (98.2 F) 05/11/2022 11:45 PM CDT Respiratory Rate 18 11/11/2022 10:23 AM 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 Oxygen Saturation 99% 12/17/2022 10:31 AM 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 Inhaled Oxygen Concentration - - Weight 100.2 kg (221 lb) 12/17/2022 10:31 AM 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 Height 162.6 cm (5' 4.02 ) 12/17/2022 10:[address] Body Mass Index 37.92 12/17/2022 10:31 AM 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 Plan of Treatment Health Maintenance Due Date Last Done Comments Cervical Cancer Screening 1982 Depression Screening 1982 Hepatitis C Screening 1982 Varicella Vaccines (1 of 2 - 13+ 2-dose series) 1995 Hepatitis B Screening 2000 Regular Well Visit/Exam 18-64 2000 Pneumococcal vaccine <65 (1 of 2 - PCV) 2001 Breast Cancer Screening-Mammogram 12/09/2023 12/09/2022 Covid-19 Vaccine (3 - season) 2024 10/02/2021, 09/11/2021 Influenza Vaccine (#1) 2024 09/01/2019 DTaP/Tdap/Td Vaccine (8 - Td or Tdap) 09/08/2029 09/08/2019, 07/04/1996, 07/18/1987, Additional history exists HPV Vaccines Aged Out No longer eligi ble based on patient's age to complete this topic Procedures Procedure Name Priority Date/Time Associated Diagnosis Comments SCREENING MAMMOGRAM BILATERAL W JOSE Schedule Routine, Read Routine (OP Routine) 12/09/2022 2:41 PM 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 Dysmenorrhea, unspecified Encounter for screening mammogram for malignant neoplasm of breast from Last 3 Months or Most Recently Relevant to Health Maintenance Results * Screening Mammogram Bilateral W Jose (12/09/2022 2:41 PM 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) Anatomical Region Laterality Modality Breast Bilateral Mammography 12/09/2022 2:43 PM 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 Impressions 12/09/2022 2:43 PM 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 There is no mammographic evidence of malignancy. A 1 year screening mammogram is recommended. BI-RADS: 1 - Negative. The patient has been or will be contacted. The patient will be entered into a reminder system with a target due date of 1 year for her next mammogram. Electronically signed by: BRUNO Cardona 12/09/2022 2:43 PM 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 EXAMINATION: SCREENING MAMMOGRAM BILATERAL W JOSE ORDERING [...] or other suspicious findings in either breast. us Flor Driscoll MD IMG MAMMO PROCEDURES Isaura l Result from Last 3 Months or Most Recently Relevant to Health Maintenance [place] [id number] [place] [address] [facility] Care Teams Upholsterer [employer]se Relationship Specialty Start Date End Date Leigh Ann Roach MD [address] [place] [address] [place] [address] PCP - General 05/11/22 Carole Freitas, PT Physical Therapist Physical Therapy 06/29/22 Emma Hendricks NP [address] [place] [address] [place] [address] Nurse Practitioner Psychiatry 09/14/22
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
--- OUTSIDE RECORDS SUMMARY | 2025-02-20 13:47 | XMS_ITS ---
Author Organization [facility] Address [address] [facility] [address] [place] [address] Care Team Providers Care Battery Starter Name Role Phone Leti Cespedes Unavailable [phone] Hoda Tang Unavailable [phone] Social History Sex Assigned At : Social History Observation Description Sex Assigned At Female Encounters Encounter Location Date Provider Diagnosis [facility] [address] [facility] [address] [place] [address] 10/25/2024 Hoda Tang Plan Of Treatment No Information Progress Notes * Phil SERRANOEricOB:[birth year] (44 yo F)Acc No.[id number]:10/25/2024 Patient: Loren OVALLE Provider: Luicus TANG LCSW :1980 A ge:44 Y S ex:Female Date:10/25/2024 Phone: Address:[address] [id number] Data: * Chief Complaints: * Assessment: Plan: * Treatment: * Procedure Codes: N STHR NO SHOW THERAPY * Billing Information: * Visit Code: * Procedure Codes: NSTHR NO SHOW THERAPY. * Electronic signature of Hoda Tang LCSW on 02/20/2025 at 01:47 PM CDT Sign off status: Pending Signatures: No Ad Hoc Signature Added * Provider: Lucius TANG LCSW Date: 12/25/2023 Generated for Dolores alfonso/Abbi/Ritaitting on: 0 02/20/2025 01:47 PM CDT
== END 2025-02-20 12:00 | disposition home or self-care (01) ==
PROVIDERS: Emergency Provider Nurse Practitioner
DX: K02.9 Dental caries, unspecified (principal); J32.9 Chronic sinusitis, unspecified; Z87.891 Personal history of nicotine dependence; F12.90 Cannabis use, unspecified, uncomplicated
CPT/HCPCS: 99213; G0463

== ENCOUNTER 2025-04-29 11:05 | Emergency (ER) | payer OTHER, SELFPAY ==
[2025-04-29 11:14] VITALS: BP 112/70; PULSE 62; RESP 20; TEMP 36.6; O2SAT 100
--- NOTE | 2025-04-29 11:55 | ED.SKABFB ---
HPI - Skin/Abscess/Foreign Bdy General Chief complaint: Skin/Abscess/Foreign Body Stated complaint: poison char Time Seen by Provider: 04/29/25 11:48 Source: patient, RN notes reviewed and old records reviewed Mode of arrival: ambulatory Limitations: no limitations History of Present Illness HPI narrative: 44 year old female who presents to [facility] care with complaints of itchy rash to her bilateral forearms, some on her hands and on her neck for the past 3 days. Patient reports that she has been working in her yard weeding prior to rash occurring. Patient reports that she has been applying Calamine lotion and using hydrocortisone to rash without resolution. Patient reports no difficulty with her breathing or swelling. She states that she has been taking some Benadryl also for the itching. MD complaint: rash (itchy rash) Onset (ago): day(s) (3) Severity: moderate Quality: pruritic Treatments prior to arrival: Benadryl and other (calammine ointment and hydrocortisone) Related Data Home Medications ?Medication ?Instructions ?Recorded ?Confirmed ?Last Taken ?Type ariprazole 04/29/25 Unknown History Allergies Allergy/AdvReac Type Severity Reaction Status Date / Time clindamycin Allergy THROAT Verified 02/20/25 11:41 TIGHTENING albuterol AdvReac TIGHTNESS Verified 02/20/25 11:41 IN LINGS aripiprazole (From Abilify) AdvReac Hallucinating, Verified 02/20/25 11:41 CONFUSION bupropion (From Wellbutrin) AdvReac INCREASED Verified 02/20/25 11:41 ANXIETY butorphanol (From Stadol) AdvReac Anxiety Verified 02/20/25 11:41 citalopram AdvReac INCREASED Verified 02/20/25 11:41 DEPRESSION zinc AdvReac fatigue, Verified 02/20/25 11:41 CHEST PAINS Review of Systems Review of Systems: CONSTITUTIONAL: Denies fever, chills, or sweats. CARDIOVASCULAR: Denies chest pain, palpitations, or edema. RESPIRATORY: Denies cough or dyspnea. SKIN: Reports rash to her forearms and some blistery lesions also on hands red raised area also on her neck, rash is itchy MUSCULOSKELETAL: Denies joint pain or myalgia. NEUROLOGIC: Denies headache, numbness, or weakness. All systems reviewed & are unremarkable except as noted in HPI and below PMFSH Past Medical History Medical History Arm fracture, left PTSD (post-traumatic stress disorder) Bipolar disorder Anxiety and depression Surgical History Surgical History H/O tubal ligation H/O: hysterectomy History of tonsillectomy Family History Family History Mother Family history non-contributory Social History Social History Smoking packs per day: 0.2 Smoking cigarettes per day: 4.0 Years smoked: 5 Smoking pack-years: 1.00 Smoking status: Former smoker Tobacco type: cigarettes Smoking end date: 05/29/22 Substance use: current Substance use type: marijuana Living arrangements: with family Additional living arrangements comments: PARENTS Spiritual care concerns: No Comments At time of signature, agree with nursing past medical, surgical, social and family history. There is no relevant family history pertinent to the presenting complaint Exam Narrative: GENERAL: Well-appearing, well-nourished, and in no acute distress. HEAD: Normocephalic, atraumatic. EYES: PERRLA, conjunctivae clear, and EOMI. ENT: Mucous membranes moist. Oropharynx without edema, erythema or lesions. NECK: Supple. No lymphadenopathy CHEST: Clear to auscultation. No respiratory distress SAO2 100% on room air. HEART: Regular rate and rhythm. SKIN: Warm, dry.? Patches of erythema and edema to bilateral forearms, some blistery areas on hands and patch of red raised itchy rash on neck. rash occurred after working in yard. NEURO:? Alert and oriented x3. PSYCH: Normal mood and affect Course Course Emergency Course: Patient is aware of diagnosis, understands and agrees to treatment plan.? Anticipatory guidance given.? Patient agrees to follow-up as directed and is aware of reasons to seek care at the emergency department. Portions of this record may have been created with voice recognition software Level of Care: Express Care Visit Vital Signs Vital signs: Vital Signs Temperature 36.6 C 04/29/25 11:14 Pulse Rate 62 04/29/25 11:14 Respiratory Rate 20 04/29/25 11:14 Blood Pressure 112/70 04/29/25 11:14 Pulse Oximetry 100 04/29/25 11:14 Oxygen Delivery Room Air 04/29/25 11:14 Temperature 36.6 C 04/29/25 11:14 Pulse Rate 62 04/29/25 11:14 Respiratory Rate 20 04/29/25 11:14 Blood Pressure 112/70 04/29/25 11:14 Pulse Oximetry 100 04/29/25 11:14 Oxygen Delivery Room Air 04/29/25 11:14 Reviewed MDM - Skin/Abscess/Foreign Bdy MDM Narrative Medical decision making narrative: Does not appear at this time to be erythema multiforme, bullous, SJS, TEN; no evidence at this time to suggest RMSF, endocarditis or Lyme disease; patient looks well, nontoxic and is tolerating oral intake; no neurologic signs or symptoms; no headache, photophobia or neck pain; afebrile; appropriate for initial outpatient treatment; discussed the importance of follow-up, patient agrees; question, viral exanthema, contact dermatitis, allergic dermatitis, eczema, urticaria, [ xx ]. No soft palate or uvula edema, no tongue, lip edema or other mucosal involvement, no respiratory compromise, no stridor, no wheezing, no wheezing, no history of syncope, no hypotension, no nausea, vomiting, or diarrhea.? Instructed patient to go to nearest ER immediately for any worsening symptoms including but not limited to: fever, spreading rash, pain, sore throat, headache, dizziness, chest pain, trouble breathing, or any symptoms concerning to the patient. Differential Diagnosis Differential diagnosis: Likely cellulitis, eczema, contact dermatitis and other (poision char dermatitis.) Medical Records Attestation: I reviewed the patient's medical records. Critical Care Time Critical Care Time Critical Care Time: No Discharge Plan Discharge Clinical Impression: Contact dermatitis Qualifiers: Contact dermatitis type: allergic Contact dermatitis trigger: non-food plants Qualified Code(s): L23.7 - Allergic contact dermatitis due to plants, except food Patient Disposition: Home Condition: Stable Instructions: Antibiotic Form, Poison Char (ED) Additional Instructions: Apply triamcinolone ointment to rash twice daily, never apply to face watch for any increasing infection--redness, swelling, drainage Tylenol or ibuprofen for any fever pain follow up with PCP in 7-10 days for a wound check recheck if develop fever, chills, increasing symptom Go to the ER if your symptoms become worse of if ANY new symptoms develop Zyrtec at 10 mg daily for 10 days Pepcid 20 mg daily for 10 days Steroid taper take as prescribed If your symptoms persist, change or worsen significantly before you can contact your personal physician then please, without delay, go to the emergency department for further evaluation. Follow-up with PCP in 7-10 days or sooner if needed Follow up with PCP soon in regards to your blood pressure which is elevated above threshold for referral. Blood pressure above 120/80 may indicate pre-hypertension. Written prescription given Patient Language: Turkmen Prescriptions: No Action ariprazole Follow-up/Referrals: UNKNOWN,DOCTOR [Primary Care Provider] - Time of Disposition: 12:04 Quality [place] Coma Scale Eyes: Open Verbal: Oriented and Alert Motor: Follows Commands Katrin Coma Total Score: 15
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
--- OUTSIDE RECORDS SUMMARY | 2025-04-29 18:00 | XMS_ITS | Clinical Summary ---
Author Organization [facility] Address [address] [place] [address] Phone Care Team Providers Care Manager Fine Dining Name Role Phone Pass, Lori Senior INDERJIT, INSTRUCTIONAL PARAPROFESSIONAL Unavailable [phone] Leigh Ann Roach MD Primary Care Provider [phone] Allergies Active Allergy Reactions Criticality Noted Date [...] Periodontal disease 02/28/2019 Anxiety 01/13/2019 Vertigo 01/13/2019 Immunizations Immunization Administration Dates Next Due DTAP [...] Comments Blood Pressure 120/75 12/09/2024 4:17 PM TOOL GRINDER Pulse 83 12/09/2024 4:17 PM TOOL GRINDER Temperature 36.7 C (98 F) 12/09/2024 12:55 PM TOOL GRINDER Respiratory Rate 16 12/09/2024 4:17 PM TOOL GRINDER Oxygen Saturation 100% 12/09/2024 4:17 PM TOOL GRINDER Inhaled Oxygen Concentration - - Weight 70.8 kg (156 lb) 12/09/2024 12:55 PM TOOL GRINDER Height 162.6 cm (5' 4) 12/09/2024 12:55 PM TOOL GRINDER Body Mass Index 26.78 12/09/2024 12:55 PM TOOL GRINDER Plan of Treatment Health Maintenance Due Date Last Done Comments Hepatitis C Virus (HCV) Screening 1982 Hepatitis B Immunization (1 of 3 - 19+ 3-dose series) 2001 Mammogram 12/09/2023 12/09/2022 Influenza Immunization (#1) 2024 09/01/2019 SARS-COV-2 Immunization ( season) 2024 10/02/2021, 09/11/2021 DTaP/Tdap/Td Immunization (8 [...] on patient's age to complete this topic Insurance [address] Care Teams Manager Fine Dining Relationship Specialty Start Date End Date Leigh Ann Roach MD [address] [place] [address] [place] [id number] PCP - General Family Medicine 04/18/23 Harika, Lori Senior APRN, INSTRUCTIONAL PARAPROFESSIONAL [address] [facility] [address] [place] [address] Certified Nurse Practitioner 10/03/19
--- OUTSIDE RECORDS SUMMARY | 2025-04-29 18:00 | XMS_ITS | Referral Summary ---
Author Organization [facility] Address [address] [place] [address] Care Team Providers Care Project Account Manager Name Role Phone Leigh Ann Roach MD Primary Care Provider [phone] Carole Freitas PT Unavailable Unavailable Emma Hendricks HEAD CHOPPER Unavailable [phone] Allergies Active Allergy Reactions Criticality Noted Date [...] on file Legal Sex Female 7:17 PM MEDICAL SOCIAL WORKER Gender Identity Not on file Sexual Orientation Not on file Last Filed Vital Signs Vital Sign Reading Time Taken Comments Blood Pressure 127/84 12/17/2022 10:31 AM MEDICAL SOCIAL WORKER Pulse 76 12/17/2022 10:31 AM MEDICAL SOCIAL WORKER Temperature 36.8 C (98.2 F) 05/11/2022 11:45 PM CDT Respiratory Rate 18 11/11/2022 10:23 AM MEDICAL SOCIAL WORKER Oxygen Saturation 99% 12/17/2022 10:31 AM MEDICAL SOCIAL WORKER Inhaled Oxygen Concentration - - Weight 100.2 kg (221 lb) 12/17/2022 10:31 AM MEDICAL SOCIAL WORKER Height 162.6 cm (5' 4.02) 12/17/2022 10:[address] Body Mass Index 37.92 12/17/2022 10:31 AM MEDICAL SOCIAL WORKER Plan of Treatment Not on file Procedures Procedure Name Priority Date/Time Associated Diagnosis Comments SCREENING MAMMOGRAM BILATERAL W JOSE Schedule Routine, Read Routine (OP Routine) 12/09/2022 2:41 PM MEDICAL SOCIAL WORKER Dysmenorrhea, unspecified Encounter for screening mammogram for malignant neoplasm of breast from Last 3 Months or Most Recently Relevant to Health Maintenance Results * Screening Mammogram Bilateral W Jose (12/09/2022 2:41 PM MEDICAL SOCIAL WORKER) Anatomical Region Laterality Modality Breast Bilateral Mammography 12/09/2022 2:43 PM MEDICAL SOCIAL WORKER Impressions 12/09/2022 2:43 PM MEDICAL SOCIAL WORKER There is no mammographic evidence of malignancy. A 1 year screening mammogram is recommended. BI-RADS: 1 - Negative. The patient has been or will be contacted. The patient will be entered into a reminder system with a target due date of 1 year for her next mammogram. Electronically signed by: BRUNO Cardona 12/09/2022 2:43 PM MEDICAL SOCIAL WORKER EXAMINATION: SCREENING MAMMOGRAM BILATERAL W JOSE ORDERING [...] Most Recently Relevant to Health Maintenance Insurance [facility] [place] [address] [address] [facility] Care Teams Project Account Manager Relationship Specialty Start Date End Date Leigh Ann Roach MD [address] [place] [address] [address] LAMAR [address] [place], [place] [address] [address] PCP - General 05/11/22 Carole Freitas, PT Physical Therapist Physical Therapy 06/29/22 Emma Hendricks, THOR [address] [place] [address] [place] [address] Nurse Practitioner Psychiatry 09/14/22
--- OUTSIDE RECORDS SUMMARY | 2025-04-29 18:00 | XMS_ITS | Clinical Summary ---
Author Organization [facility] Address [address] [place] [address] Care Team Providers Care Sap Business Intelligence Consultant Name Role Phone Leigh Ann Roach MD Primary Care Provider [phone] Carole Freitas PT Unavailable Unavailable Emma Hendricks FOOD AND BEVERAGE CASHIER Unavailable [phone] Allergies Active Allergy Reactions Criticality Noted Date [...] on file Legal Sex Female 7:17 PM HOUSING GRANT ANALYST Gender Identity Not on file Sexual Orientation Not on file Obstetrics History Para Term AB IAB SAB Ectopic Multiple Livin g Live Births 2 2 2 Date Outcome GA Total Labor Labor/2nd/3rd Weight Sex Type Anes PTL Carol A1 A5 Name Clin Term Term Last Filed Vital Signs Vital Sign Reading Time Taken Comments Blood Pressure 127/84 12/17/2022 10:31 AM HOUSING GRANT ANALYST Pulse 76 12/17/2022 10:31 AM HOUSING GRANT ANALYST Temperature 36.8 C (98.2 F) 05/11/2022 11:45 PM CDT Respiratory Rate 18 11/11/2022 10:23 AM HOUSING GRANT ANALYST Oxygen Saturation 99% 12/17/2022 10:31 AM HOUSING GRANT ANALYST Inhaled Oxygen Concentration - - Weight 100.2 kg (221 lb) 12/17/2022 10:31 AM HOUSING GRANT ANALYST Height 162.6 cm (5' 4.02) 12/17/2022 10:[address] Body Mass Index 37.92 12/17/2022 10:31 AM HOUSING GRANT ANALYST Plan of Treatment Health Maintenance Due Date [...] - season) 2024 10/02/2021, 09/11/2021 Influenza Vaccine (Season Ended) 2025 09/01/2019 DTaP/Tdap/Td Vaccine (8 - Td or Tdap) 09/08/2029 09/08/2019, 07/04/1996, 07/18/1987, Additional history exists HPV Vaccines Aged Out No longer eligi ble based on patient's age to complete this topic Procedures Procedure Name Priority Date/Time Associated Diagnosis Comments SCREENING MAMMOGRAM BILATERAL W JOSE Schedule Routine, Read Routine (OP Routine) 12/09/2022 2:41 PM HOUSING GRANT ANALYST Dysmenorrhea, unspecified Encounter for screening mammogram for malignant neoplasm of breast from Last 3 Months or Most Recently Relevant to Health Maintenance Results * Screening Mammogram Bilateral W Jose (12/09/2022 2:41 PM HOUSING GRANT ANALYST) Anatomical Region Laterality Modality Breast Bilateral Mammography 12/09/2022 2:43 PM HOUSING GRANT ANALYST Impressions 12/09/2022 2:43 PM HOUSING GRANT ANALYST There is no mammographic evidence of malignancy. A 1 year screening mammogram is recommended. BI-RADS: 1 - Negative. The patient has been or will be contacted. The patient will be entered into a reminder system with a target due date of 1 year for her next mammogram. Electronically signed by: BRUNO Cardona 12/09/2022 2:43 PM HOUSING GRANT ANALYST EXAMINATION: SCREENING MAMMOGRAM BILATERAL W JOSE ORDERING [...] Most Recently Relevant to Health Maintenance Insurance [place], [place] [id number] [place] [address] [facility] Care Teams Sap Business Intelligence Consultant Relationship Specialty Start Date End Date Leigh Ann Roach MD [address] [place] [address] [place] [address] PCP - General 05/11/22 Carole Freitas, PT Physical Therapist Physical Therapy 06/29/22 Emma Hendricks NP [address] [place] [address] [place] [address] Nurse Practitioner Psychiatry 09/14/22
== END 2025-04-29 12:13 | disposition home or self-care (01) ==
PROVIDERS: Emergency Provider Registered Nurse
DX: L23.7 Allergic contact dermatitis due to plants, except food (principal); Z87.891 Personal history of nicotine dependence; F12.90 Cannabis use, unspecified, uncomplicated
CPT/HCPCS: 99213; G0463

== ENCOUNTER 2025-06-18 09:57 | Outpatient (CLI) | payer OTHER, SELFPAY ==
--- NOTE | ~2025-06-18 | US_ITS ---
EXAMINATION: US pelvic complete INDICATION: Pelvic pain Comparison:No prior studies for comparison. TECHNIQUE: Multiple transabdominal sonographic images of the pelvis performed. FINDINGS: The uterus is surgically absent. The right ovary measures 3.4 x 2.3 x 2.7 cm and the left o vary measures 5 x 3.6 x 2.8 cm. There are small follicles in each ovary. Normal doppler signal in tabatha th ovaries. There is no free fluid in the pelvis. There are no abnormal masses seen on either side. IMPRESSION: 1. Unremarkable pelvic ultrasound. Reviewed, dictated and finalized at location A.
--- NOTE | ~2025-06-18 | US_ITS ---
US renal BI 06/18/2025 10:35 Procedure: Realtime transabdominal ultrasound of the kidneys and bladder. Indication: Renal cysts. Comparison: No prior studies for comparison. Findings: Renal echotexture is normal bilaterally without hydronephrosis, contour deforming mass or r enal calculus. The right kidney measures 12.2 cm and left kidney measures 12.6 cm. Bladder within no rmal limits. Incidental note is made of a gallstone. Impression: 1: Unremarkable renal ultrasound. No stones, masses or hydronephrosis. 2: Cholelithiasis. Reviewed, dictated and finalized at location A. Impression: 1: Unremarkable renal ultrasound. No stones, masses or hydronephrosis. 2: Cholelithiasis.
== END 2025-06-18 09:58 | disposition home or self-care (01) ==
PROVIDERS: PCP Obstetrics & Gynecology; Visit Provider Obstetrics & Gynecology
DX: N28.1 Cyst of kidney, acquired (principal)
CPT/HCPCS: 76775; 76856

== ENCOUNTER 2025-06-27 09:20 | Emergency (ER) | payer OTHER, SELFPAY ==
[2025-06-27 09:22] VITALS: BP 113/71; PULSE 65; RESP 16; TEMP 36.5; O2SAT 100
--- NOTE | 2025-06-27 09:35 | ED_ITS ---
HPI - Skin/Abscess/Foreign Bdy General Chief complaint: Skin/Abscess/Foreign Body Stated complaint: Rash Time Seen by Provider: 06/27/25 09:35 Source: patient Mode of arrival: ambulatory Limitations: no limitations History of Present Illness HPI narrative: 44 yo F presents with poison char rash for 2 days. Started after pulling weeds in her yard. Applying calamine lotion. all systems reviewed and negative except as noted above. Related Data Home Medications ?Medication ?Instructions ?Recorded ?Confirmed ?Last Taken ?Type ariprazole 04/29/25 Unknown History clonazepam 0.5 mg tablet mg 06/27/25 Unknown History ergocalciferol (vitamin D2) 1,250 06/27/25 Unknown History mcg (50,000 unit) capsule fluoxetine 20 mg capsule mg 06/27/25 Unknown History lamotrigine 100 mg tablet mg 06/27/25 Unknown History propranolol 10 mg tablet mg 06/27/25 Unknown History tirzepatide (weight loss) 2.5 mg subcut 06/27/25 Unknown History mg/0.5 mL subcutaneous pen injector (PriceAdvicepbound) Allergies Allergy/AdvReac Type Severity Reaction Status Date / Time clindamycin Allergy THROAT Verified 02/20/25 11:41 TIGHTENING albuterol AdvReac TIGHTNESS Verified 02/20/25 11:41 IN LINGS aripiprazole (From Abilify) AdvReac Hallucinating, Verified 02/20/25 11:41 CONFUSION bupropion (From Wellbutrin) AdvReac INCREASED Verified 02/20/25 11:41 ANXIETY butorphanol (From Stadol) AdvReac Anxiety Verified 02/20/25 11:41 citalopram AdvReac INCREASED Verified 02/20/25 11:41 DEPRESSION zinc AdvReac fatigue, Verified 02/20/25 11:41 CHEST PAINS Review of Systems Review of Systems: CONSTITUTIONAL: Denies fever, chills, or sweats. EYES: Denies visual changes, redness, or discharge. ENT: Denies rhinorrhea, congestion, sore throat, or otalgia. CARDIOVASCULAR: Denies chest pain, palpitations, or edema. RESPIRATORY: Denies cough or dyspnea. GASTROINTESTINAL: Denies abdominal pain, nausea, vomiting, or diarrhea. GENITOURINARY: Denies dysuria or hematuria. SKIN: Reports rash with itching. MUSCULOSKELETAL: Denies back pain, joint pain, or myalgia. NEUROLOGIC: Denies headache, numbness, or weakness. PSYCHIATRIC: Denies anxiety or depression. All other systems reviewed are negative, except as documented in HPI. [facility] Past Medical History Medical History Arm fracture, left PTSD (post-traumatic stress disorder) Bipolar disorder Anxiety and depression Surgical History Surgical History H/O tubal ligation H/O: hysterectomy History of tonsillectomy Family History Family History Mother Family history non-contributory Social History Social History Smoking packs per day: 0.2 Smoking cigarettes per day: 4.0 Years smoked: 5 Smoking pack-years: 1.00 Smoking status: Former smoker Tobacco type: cigarettes Smoking end date: 05/29/22 Substance use: current Substance use type: marijuana Living arrangements: with family Additional living arrangements comments: PARENTS Spiritual care concerns: No Comments At time of signature, agree with nursing past medical, surgical, social and family history. There is no relevant family history pertinent to the presenting complaint. Exam Narrative: GENERAL: This is a well-nourished, well-developed patient, in no apparent distress. HEAD: normocephalic, atraumatic. EYES: PERRL. Sclera clear/white. Vision is grossly intact. EARS: External ears normal, auditory canals clear and without drainage, TMs normal without perforation. Hearing grossly intact. NOSE: External nose normal with no obvious nasal discharge, nares without redness, no rhinorrhea. THROAT: Mucous membranes moist, posterior pharynx clear. NECK: Neck supple, non-tender without lymphadenopathy, masses or thyromegaly. CARDIOVASCULAR: Regular rate and rhythm without murmurs, gallops, or rubs. RESPIRATORY: Clear to auscultation. Breath sounds equal bilaterally. No wheezes, rales, or rhonchi. SKIN: warm, Dry, intact, good texture and turgor. erythematous vesicular rash to right side of face, neck, right inner thigh. Mild Periorbital right eye swelling. NEURO: awake, alert, and oriented to person, place and time. There were no ob vious focal neurologic abnormalities. EXTREMITIES: No joint tenderness, effusion, or edema noted. Course Course Level of Care: Express Care Visit Vital Signs Vital signs: Vital Signs Temperature 36.5 C 06/27/25 09:22 Pulse Rate 65 06/27/25 09:22 Respiratory Rate 16 06/27/25 09:22 Blood Pressure 113/71 06/27/25 09:22 Pulse Oximetry 100 06/27/25 09:22 Oxygen Delivery Room Air 06/27/25 09:22 Temperature 36.5 C 06/27/25 09:22 Pulse Rate 65 06/27/25 09:22 Respiratory Rate 16 06/27/25 09:22 Blood Pressure 113/71 06/27/25 09:22 Pulse Oximetry 100 06/27/25 09:22 Oxygen Delivery Room Air 06/27/25 09:22 Reviewed MDM - Skin/Abscess/Foreign Bdy MDM Narrative Medical decision making narrative: patient is well-appearing, nontoxic. Patient requested Kenalog IM to treat poison char reaction. Will prescribe triamcinolone, recommend an [id number] antihistamine. Differential Diagnosis Differential diagnosis: Likely urticaria, allergic reaction to drug, eczema and contact dermatitis Discharge Plan Discharge Clinical Impression: Dermatitis due to plants, including poison char, sumac, and oak Patient Disposition: Home Condition: Stable Instructions: Poison Char (ED) Additional Instructions: You were given an intramuscular injection today of Kenalog. This medication is a steroid used to treat poison char reaction. Apply prescription steroid cream to affected area, avoid face. Take a daily antihistamine such as Zyrtec to treat allergic reaction. Follow-up with your primary care physician as needed. Patient Language: Mosotho Prescriptions: New triamcinolone acetonide 0.1 % cream 1 applic topical BID Qty: 30 0RF No Action ariprazole clonazepam 0.5 mg tablet propranolol 10 mg tablet ergocalciferol (vitamin D2) 1,250 mcg (50,000 unit) capsule fluoxetine 20 mg capsule lamotrigine 100 mg tablet Zepbound 2.5 mg/0.5 mL pen injector SUBCUT Follow-up/Referrals: Rosita,Helena Edwards [facility]PH[facility] INSIDE [Primary Care Provider] - Time of Disposition: 09:42
--- OUTSIDE RECORDS SUMMARY | 2025-06-27 09:41 | XMS_ITS | Referral Summary ---
Author Organization [facility] Address [address] [place] [address] Care Team Providers Care Food Manager Name Role Phone Carole Freitas PT Unavailable Unavailable Emma Hendricks ELECTRO OPTICS ENGINEER Unavailable [phone] Helena Becker NP Primary Care Provider [phone] Encounters Date Type Department Care Team Description 06/13/2025 Orders Only [facility] Primary Care at [place] [phone] Helena Becker NP Paresthesia of hand, bilateral (Primary Dx) 05/30/2025 Orders Only [facility] Primary Care at [place] [phone] Helena Becker ELECTRO OPTICS ENGINEER 05/29/2025 Results Follow-Up [facility] Primary Care at [place] [phone] Helena Becker NP Hepatitis B Surface Antigen Blood, Hepatitis B surface antibody (immune status) Blood, Hepatitis C antibody Blood, Additional followed-up results: 9 05/28/2025 Telephone [facility] Primary Care at [place] [phone] Helena Becker NP Medical Question/Miscellaneo us 05/28/2025 9:20 AM CDT Lab [facility] - Outpatient Center at [address] [address] Need for hepatitis B screening test; Need for hepatitis C screening test; Screening for diabetes mellitus; Screening, anemia, deficiency, iron; Screening for thyroid disorder; Screening for lipid disorders; Vitamin D deficiency 05/28/2025 8:30 AM CDT Office Visit [facility] Primary Care at [address] [place] [phone] Helena Becker NP Encounter for medical examination to establish care (Primary Dx); Vitamin D deficiency; Generalized anxiety disorder; Severe recurrent major depression without psychotic features (HCC); Paresthesia of hand, bilateral; Need for hepatitis B screening test; Encounter for screening mammogram for malignant neoplasm of breast; Need for hepatitis C screening test; Screening for diabetes mellitus; Screening, anemia, deficiency, iron; Screening for lipid disorders; Screening for thyroid disorder; Class 1 obesity without serious comorbidity with body mass index (BMI) of 31.0 to 31.9 in adult, unspecified obesity type 05/26/2025 5:26 PM CDT - 05/26/2025 7:44 PM CDT Emergency [facility] Emergency Department [address] [place] [address] Paresthesia of hand, bilateral (Primary Dx); Bilateral hand pain Discharge Disposition: Discharge to home or self care 05/11/2025 1:30 PM CDT - 05/11/2025 2:27 PM CDT Emergency [facility] Emergency Department [address] [place] [id number] Pain, dental (Primary Dx); Anxiety Discharge Disposition: Discharge to home or self care from Last 3 Months Allergies Active Allergy Reactions Criticality Noted Date Comments Albuterol Other (See comments) Low 09/14/2022 Chest tightness Aripiprazole Unknown 05/15/2025 Bupropion Unknown 05/24/2025 Citalopram Other (See comments) Low 09/14/2022 Suicidal Citalopram Hydrobromide Unknown 05/24/2025 Clindamycin Anxiety Low 09/14/2022 Butorphanol Other (See comments) Low 09/14/2022 Suicidal Zinc Other (See comments) Low 11/11/2022 Panic attacks Medications diphenoxylate- atropine (LOMOTIL) 2.5-0.025 mg per tabletIndicati ons:diarrhea Take 1 tablet by mouth 4 (four) times a day as needed for diarrhea 10 tablet 11/24/20 Active Additional Information Patient not taking.Reported on 12/17/2022 lidocaine viscous (XYLOCAINE) 2 % solution Apply 5 mL topically every 8 (eight) hours as needed (pain) 100 mL 03/29/20 Active Additional Information Patient not taking.Reported on 12/17/2022 chlorhexidine (PERIDEX) 0.12 % solution Apply 15 mL to the mouth or throat 2 (two) times a day 120 mL 03/29/20 Active Additional Information Patient not taking.Reported on 12/17/2022 busPIRone (BUSPAR) 5 mg tablet Take 5 mg by mouth 3 (three) times a day as needed 10/03/20 Active meclizine (ANTIVERT) 25 mg tablet Take 25 mg by mouth 3 (three) times a day as needed for dizziness Active diphenoxylate- atropine (LOMOTIL) 2.5-0.025 mg per tabletIndicati ons:diarrhea Take 1 tablet by mouth 4 (four) times a day as needed for diarrhea 12 tablet 01/09/20 Active Additional Information Patient not taking.Reported on 09/14/2022 lidocaine viscous (XYLOCAINE) 2 % solution Apply 15 mL to the mouth or throat every 3 (three) hours 200 mL 05/11/20 Active Additional Information Patient not taking.Reported on 05/28/2025 ketorolac (TORADOL) 10 mg tablet Take 1 tablet (10 mg total) by mouth every 6 (six) hours as needed for pain 20 tablet 05/11/20 25 Active Additional Information Patient not taking.Reported on 05/28/2025 LORazepam (Ativan) 1 mg tablet Take 1 tablet (1 mg total) by mouth 2 (two) times a day as needed for anxiety for up to 4 doses 4 tablet 05/11/20 25 Active Additional Information Patient not taking.Reported on 05/28/2025 lidocaine (XYLOCAINE) 5 % ointment Apply topically 2 (two) times a day Massage into areas of pain 2-3 times daily as directed. Collaborating physician Porfirio Posey MD 120 g 1 05/26/20 25 Active Additional Information Patient not taking.Reported on 05/28/2025 FLUoxetine (PROzac) 20 mg capsule Take 1 capsule (20 mg total) by mouth daily 05/04/20 25 Active lamoTRIgine (LaMICtal) 25 mg tablet Take 1 tablet (25 mg total) by mouth daily 05/15/20 25 Active tirzepatide, weight loss, (ZEPBOUND) 2.5 mg/0.5 mL pen injector Inject 0.5 mL (2.5 mg total) under the skin every 7 days 2 mL 1 05/28/20 25 Active propranoloL (INDERAL) 10 mg tablet Take 1 tablet (10 mg total) by mouth daily 90 tablet 3 05/28/20 25 Active ergocalciferol (VITAMIN D) 50,000 unit capsule Take 1 capsule (50,000 Units total) by mouth once a week 12 capsule 3 05/30/20 25 026 Active ergocalciferol (VITAMIN D) 50,000 unit capsule Take 50,000 Units by mouth 06/17/20 22 025 Discontinu ed(Therapy completed) methylPREDNISo lone (MEDROL DOSEPACK) 4 mg DosepackIndica tions:Paresthe chery of hand, bilateral,Bila teral hand pain Take as directed on package. Collaborating physician Porfirio Posey MD 1 packet 05/26/20 25 025 amoxicillin (AMOXIL) 875 mg tablet Take 1 tablet (875 mg total) by mouth 2 (two) times a day for 7 days 14 tablet 05/30/20 25 025 Active Problems Problem Noted Date Diagnosed Date Screening for diabetes mellitus 05/28/2025 Assessment & Plan (05/28/2025 7:17 PM CDT): Orders: Hemoglobin A1c; Future Comprehensive metabolic panel; Future Screening, anemia, deficiency, iron 05/28/2025 Assessment & Plan (05/28/2025 7:17 PM CDT): Orders: CBC with auto differential; Future Screening for lipid disorders 05/28/2025 Assessment & Plan (05/28/2025 7:17 PM CDT): Orders: Lipid panel; Future Screening for thyroid disorder 05/28/2025 Assessment & Plan (05/28/2025 7:17 PM CDT): Orders: TSH; Future Bilateral hand pain 05/26/2025 Encounter for medical examination to establish c are 05/25/2025 Assessment & Plan (05/28/2025 7:17 PM CDT): Need for hepatitis B screening test 05/25/2025 Assessment & Plan (05/28/2025 7:17 PM CDT): Orders: Hepatitis B surface antibody (immune status) Blood; Future Hepatitis B core antibody, total Blood; Future Hepatitis B Surface Antigen Blood; Future Encounter for screening mamm ogram for malignant neoplasm of breast 05/25/2025 Assessment & Plan (05/28/2025 7:17 PM CDT): Need for hepatitis C screening test 05/25/2025 Assessment & Plan (05/28/2025 7:17 PM CDT): Orders: Hepatitis C antibody Blood; Future Anger reaction 05/24/2025 Chronic post-traumatic stress disorder (PTSD) Difficulty sleeping 05/24/2025 Generalized anxiety disorder 05/24/2025 Assessment & Plan (05/28/2025 7:17 PM CDT): Panic disorder 05/24/2025 Severe recurrent major depre ssion without psychotic features 05/24/2025 Assessment & Plan (05/28/2025 7:17 PM CDT): Class 1 obesity without seri ous comorbidity with body mass index (BMI) of 31.0 to 31.9 in adult 09/14/2022 Assessment & Plan (05/28/2025 7:17 PM CDT): Memory loss 06/16/2022 Dizziness and giddiness 06/14/2020 [...] at a time as often as possible Paresthesia of hand, bilateral 10/03/2019 Assessment & Plan (05/28/2025 7:17 PM CDT): Vitamin D deficiency 09/01/2019 Assessment & Plan (05/28/2025 7:17 PM CDT): Orders: Vitamin D 25 hydroxy; Future Depression 02/28/2019 Insomnia 02/28/2019 Periodontal disease 02/28/2019 Anxiety 01/13/2019 Vertigo 01/13/2019 Immunizations Immunization Administration Dates Next Due DTP [...] = 0.6 oz pur e alcohol) social PHQ-2 Answer Date Recorded PHQ-2 Total Score (If total score is 3 or more points, staff should administer the PHQ-9) 6 05/28/2025 PHQ-9 Answer Date Recorded PHQ-9 Total Score 22 05/28/2025 Personal Safety Answer Date Recorded Have you ever been in or are you currently in a harmful physical or emotional relationship or is someone making you feel afraid or unsafe? Denies 05/26/2025 Comments No Sex and Gender Information Value Date Recorded Sex Assigned at Not on file Legal Sex Female 7:17 PM TOOL ANALYST Gender Identity Not on file Sexual Orientation Not on file Last Filed Vital Signs Vital Sign Reading Time Taken Comments Blood Pressure 112/80 05/28/2025 8:30 AM CDT Pulse 78 05/28/2025 8:30 AM CDT Temperature 36.6 C (97.8 F) 05/28/2025 8:30 AM CDT Respiratory Rate 16 05/26/2025 7:43 PM CDT Oxygen Saturation 95% 05/28/2025 8:30 AM CDT Inhaled Oxygen Concentration - - Weight 82.1 kg (181 lb 1.6 oz) 05/28/2025 8:30 A M CDT Height 162.6 cm (5' 4.02) 05/28/2025 8:30 AM CD T Body Mass Index 31.07 05/28/2025 8:30 AM CDT Plan of Treatment Not on file Procedures Procedure Name Priority Date/Time Associated Diagnosis Comments EGFR Routine 05/28/2025 9:14 AM CDT Screening for diabetes mellitus DIFFERENTIAL AUTO Routine 05/28/2025 9:1 4 AM CDT Screening, anemia, deficiency, iron HEMOGLOBIN A1C Routine 05/28/2025 9:14 AM CDT Screening for diabetes mellitus VITAMIN D 25 HYDROXY Routine 05/28/2025 9:14 AM CDT Vitamin D deficiency LIPID PANEL Routine 05/28/2025 9:14 AM CDT Screening for lipid disorders TSH Routine 05/28/2025 9:14 AM CDT Screening for thyroid disorder CBC WITH AUTO DIFFERENTIAL Routine 05/28/2025 9:14 AM CDT Screening, anemia, deficiency, iron COMPREHENSIVE METABOLIC PANEL Routine 05/28/2025 9:14 AM CDT Screening for diabetes mellitus HEPATITIS C ANTIBODY Routine 05/28/2025 9:14 AM CDT Need for hepatitis C screening test HEPATITIS B SURFACE ANTIBODY (IMMUNE STATUS) Routine 05/28/2025 9:14 AM CDT Need for hepatitis B screening test HEPATITIS B CORE ANTIBODY, TOTAL Routine 05/28/2025 9:14 AM CDT Need for hepatitis B screening test HEPATITIS B SURFACE ANTIGEN Routine 05/28/2025 9:14 AM CDT Need for hepatitis B screening test XR HAND LEFT 3 OR MORE VIEWS ED 05/26/2025 6:28 PM CDT XR HAND RIGHT 3 OR MORE VIEWS ED 05/26/2025 6:28 PM CDT SCREENING MAMMOGRAM BILATERAL W WAGNER Schedule Routine, Read Routine (OP Routine) 12/09/2022 2:41 PM TOOL ANALYST Dysmenorrhea, unspecified Encounter for screening mammogram for malignant neoplasm of breast from Last 3 Months or Most Recently Relevant to Health Maintenance Results * eGFR (05/28/2025 9:14 AM CDT) eGFR >90 >=60 mL/min/1. 73 m2 Comment: Interpretive Data Reference Interval Normal >/= 90 mL/min/1.73m2 Mildly decreased* 60 - 89 mL/min/1.73m2 Mildly to moderately decreased 45 - 59 mL/min/1.73m2 Moderately to severely decreased 30 - 44 mL/min/1.73m2 Severely decreased 15 - 29 mL/min/1.73m2 Kidney Failure < 15 mL/min/1.73m2 *Relative to young adult level Estimated glomerular filtration rate is determined by the 2020 CKD-EPI equation recommended by the National Kidney Foundation (A Unifying Approach to GFR Estimation: Recommendations of the NKF-ASK Task Force on Reassessing the Inclusion of Race in Diagnosing Kidney Disease, JASN 2020). The CKD-EPI equation should not be used for patients with unstable renal function and has not been validated in children and those over 70. Current interpretive data was last reviewed 2021. Testing performed by: [address] [address] Blood 05/28/2025 9:14 AM CDT 05/28/2025 4:22 PM CDT us Helena Becker ELECTRO OPTICS ENGINEER LAB BLOOD ORDERABLES Final Re sult [address] Department [place] [address] * (ABNORMAL) Differential, auto (05/28/2025 9:14 AM CDT) Neutrophil abs 9.08(H) 1.50 - 6.50 K/cumm Comment:Testing performed by : [address] [address] Imm gran abs 0.04 0.00 - 0.10 K/cumm [facility] [place] Comment:Testing performed by : [address] [address] Lymphocyte abs 1.48 0.80 - 3.30 K/cumm [facility] Comment:Testing performed by : [address] [address] Monocyte abs 0.73 0.20 - 0.80 K/cumm [facility] Comment:Testing performed by : [address] [address] Eosinophil abs 0.02 0.00 - 0.50 K/cumm [facility] Comment:Testing performed by : [address] [address] Basophil abs 0.02 0.00 - 0.10 K/cumm [facility] [place] Comment:Testing performed by : [address] [address] Neutrophil pct 79.8 % [facility] [place] Comment: Interpretive Data Percent cell count reference ranges are not reported, since discordance with absolute values may lead to misinterpretation of CBC data. Current Interpretive Data was last revised on 2018. Testing performed by: [facility], [address] [place] [address]., [address] Imm gran pct 0.4 % CERNER Comment: Interpretive Data Percent cell count reference ranges are not reported, since discordance with absolute values may lead to misinterpretation of CBC data. Current Interpretive Data was last revised on 2018. Testing performed by: [address] [address] Lymphocyte pct 13.0 % C[facility]ER Comment: Interpretive Data Percent cell count reference ranges are not reported, since discordance with absolute values may lead to misinterpretation of CBC data. Current Interpretive Data was last revised on 2018. Testing performed by: [address] [address] Monocyte pct 6.4 % [facility] Comment: Interpretive Data Percent cell count reference ranges are not reported, since discordance with absolute values may lead to misinterpretation of CBC data. Current Interpretive Data was last revised on 2018. Testing performed by: [facility], [address] [place] [address]., [address] Eosinophil pct 0.2 % C[facility]ER Comment: Interpretive Data Percent cell count reference ranges are not reported, since discordance with absolute values may lead to misinterpretation of CBC data. Current Interpretive Data was last revised on 2018. Testing performed by: [address] [address] Basophil pct 0.2 % [facility] Comment: Interpretive Data Percent cell count reference ranges are not reported, since discordance with absolute values may lead to misinterpretation of CBC data. Current Interpretive Data was last revised on 2018. Testing performed by: [address] [address] Blood 05/28/2025 9:14 AM CDT 05/28/2025 3:52 PM CDT us Helena Becker NP LAB BLOOD ORDERABLES Final Re sult VALERY [address] Department [place] [address] * (ABNORMAL) CBC with auto differential (05/28/2025 9:14 AM CDT) [facility] WBC 11.37(H) 3.80 - 9.90 K/cumm Comment:Testing performed by : [address], [address] Hgb 13.3 11.9 - 15.5 g/dL [facility] CH Comment:Testing performed by : [address], [address] Hct 41.8 35.6 - 45.5 % [facility] CH Comment:Testing performed by : [address], [address] Plt 296 150 - 400 K/cumm [facility] CH Comment:Testing performed by : [address], [address] MPV 10.1 9.1 - 12.3 fL [facility] CH Comment:Testing performed by : [address], [address] RBC 4.45 3.90 - 5.20 M/cumm [facility] Comment:Testing performed by : [address], [address] MCV 93.9 81.3 - 96.4 fL [facility] CH Comment:Testing performed by : [address], [address] MCH 29.9 27.1 - 33.3 pg [facility] CH Comment:Testing performed by : [address], [address] MCHC 31.8(L) 32.3 - 35.7 g/dL [facility] CH Comment:Testing performed by : [address], [address] RDW CV 12.6 11.1 - 14.9 % [facility] Comment:Testing performed by : [address], [address] RDW SD 43.4 35.7 - 48.1 fL [facility] CH Comment:Testing performed by : [address], [address] NRBC abs 0.00 0.00 - 0.01 K/cumm VALERY Comment:Testing performed by : [facility], [address] [place] [address]., [address] Blood 05/28/2025 9:14 AM CDT 05/28/2025 3:52 PM CDT Helena Becker NP LAB BLOOD ORDERABLES Final Re sult Performing Organization Address [facility] de Phone Number [facility] [place] [address] [facility] Department [place] [address] * Hepatitis C antibody Blood (05/28/2025 9:14 AM CDT) Hep C Ab Nonreactive Nonreactive Comment: Interpretive Data Nonreactive: Antibodies to HCV not detected. Does NOT exclude the possibility of recent exposure to HCV. Equivocal: Equivocal for HCV antibodies. Supplemental molecular testing will be automatically performed to determine infection status in accordance with current CDC screening recommendations. Reactive: Positive for HCV antibodies. This may represent current or past HCV infection. Supplemental molecular testing will be automatically performed to determine current infection status in accordance with current CDC screening recommendations. Interpretive data was last revised on 2020. Testing performed by: [facility], [address] [place] [address]., [address] Blood 05/28/2025 9:14 AM CDT 05/28/2025 3:52 PM CDT Helena Becker NP LAB MICROBIOLOGY - GENERAL OR DERABLES Final Result Performing Organization Address [facility] de Phone Number VALERY [address] [address] [place] [place] [address] * Hepatitis B core antibody, total Blood (05/28/2025 9:14 AM CDT) Hep B core IgG/IgM Nonreactive Nonreactive Comment:Testing performed by : [facility], [address] [facility], [place]., [address] Blood 05/28/2025 9:14 AM CDT 05/29/2025 10:29 AM CDT Helena Becker NP LAB MICROBIOLOGY - GENERAL OR DERABLES Final Result Performing Organization Address [facility] Co de Phone Number VALERY GOMEZ [address] [facility] [place] [address] * Vitamin D 25 hydroxy (05/28/2025 9:14 AM CDT) Vitamin D 25-OH 31 30 - 80 ng/mL Comment:Testing performed by : [facility], [address] [place] [address]., [address] Blood 05/28/2025 9:14 AM CDT 05/28/2025 3:52 PM CDT Helena Becker NP LAB BLOOD ORDERABLES Final Re sult Performing Organization Address [facility] de Phone Number VALERY [address] [facility] [place] [address] * Hepatitis B surface antibody (immune status) Blood (05/28/2025 9:14 AM CDT) HBsAb (immune status) Nonreactive Comment: Interpretive Data Nonreactive: This result is consistent with a lack of immunity to Hepatitis B Virus when used in the setting of routine screening. Equivocal: The immune status of the individual should be further assessed, if appropriate, after consideration of clinical status, risk factors, and additional diagnostic information. Reactive: This result is consistent with immunity to Hepatitis B Virus when used in the setting of routine screening. Current interpretive data was last revised on 20. Testing performed by: [facility], [address] [place] [address]., [address] Blood 05/28/2025 9:14 AM CDT 05/28/2025 3:52 PM CDT Helena Becker NP LAB MICROBIOLOGY - GENERAL OR DERABLES Final Result Performing Organization Address [facility] Co de Phone Number VALERY [address] [facility] [place] [address] * Hepatitis B Surface Antigen Blood (05/28/2025 9:14 AM CDT) Pathologist [facility] HepBsAg Nonreactive Nonreactive Comment:Testing performed by : [address] [address] Blood 05/28/2025 9:14 AM CDT 05/28/2025 3:52 PM CDT Helena Becker NP LAB MICROBIOLOGY - GENERAL OR DERABLES Final Result Performing Organization Address [facility] Co de Phone Number [facility] [place] [address] [facility] Department [place] [address] * TSH (05/28/2025 9:14 AM CDT) [facility] Thyroid Stimulating Hormone 0.61 0.30 - 4.20 mcIUnit/mL Comment:Testing performed by : [address] [address] Blood 05/28/2025 9:14 AM CDT 05/28/2025 3:52 PM CDT Helena Becker NP LAB BLOOD ORDERABLES Final Re sult Performing Organization Address [facility] Co de Phone Number [place] [phone] [facility] Department [place] [address] * Hemoglobin A1c (05/28/2025 9:14 AM CDT) [facility] Hgb A1C 5.0 4.0 - 5.6 % Comment:Testing performed by : [address] [address] Estimated Average Glucose 97 mg/dL VALERY Comment: The ADA recommends reporting an estimated Average Glucose (eAG) with all Hemoglobin A1c results using the equation derived from a study of 507 normal and diabetic adults. Minority populations were underrepresented and children were not included. (Diabetes Care 31:3480-6835, 2008). The eAG is not equivalent to a fasting glucose. Testing performed by: [address] [address] Blood 05/28/2025 9:14 AM CDT 05/28/2025 3:52 PM CDT us Helena Becker NP LAB BLOOD ORDERABLES Final Re sult VALERY [id number] [place] [address] Department of Laboratories [place], [place] [id number] * Lipid panel (05/28/2025 9:14 AM CDT) Cholesterol 194 30 - 199 mg/dL Comment: Interpretive Data Ages < or = 19 years Acceptable: <170 mg/dL Borderline high: 170-199 mg/dL High: >or= 200 mg/dL Ages > or = 20 years Desirable: <200 mg/dL Borderline high: 200-239 mg/dL High: >or= 240 mg/dL Literature References: 1. Expert Panel on Integrated Guidelines for Cardiovascular Health and Risk Reduction in Children and Adolescents. Pediatrics 2011;128:S213 2. NCEP Expert Panel. Circulation 2004;110:227 Current Interpretive Data was last revised on 2018. Testing performed by: [address] [address] Triglycerides 49 <=149 mg/dL VALERY GOMEZ Comment: Interpretive Data Ages < or = 9 years Acceptable: <75 mg/dL Borderline high: 75-99 mg/dL High: >or= 100 mg/dL Ages 10 to 20 years Acceptable: <90 mg/dL Borderline high: 90-129 mg/dL High: >or= 130 mg/dL Ages > or = 20 years Desirable: <150 mg/dL Borderline high: 150-199 mg/dL High: 200-499 mg/dL Very high: >or= 499 mg/dL Literature References: 1. Expert Panel on Integrated Guidelines for Cardiovascular Health and Risk Reduction in Children and Adolescents. Pediatrics 2011;128:S213 2. NCEP Expert Panel. Circulation 2004;110:227 Current Interpretive Data was last revised on 2018. Testing performed by: [address] [address] HDL 66 >=40 mg/dL VALERY GOMEZ Comment: Interpretive Data Ages < or = 19 years Acceptable: >45 mg/dL Borderline low: 40-45 mg/dL Low: <40 mg/dL Ages > or = 20 years Desirable: >or= 60 mg/dL Low: <40 mg/dL Literature References: 1. Expert Panel on Integrated Guidelines for Cardiovascular Health and Risk Reduction in Children and Adolescents. Pediatrics 2011;128:S213 2. NCEP Expert Panel. Circulation 2004;110:227 Current Interpretive Data was last revised on 2018. Testing performed by: [facility], [address] [place] [address]., [address] LDL, calculated 119 <=129 mg/dL VALERY Comment: Interpretive Data Ages < or = 19 years Acceptable: <110 mg/dL Borderline high: 110-129 mg/dL High: >or= 130 mg/dL Ages > or = 20 years Optimal: <100 mg/dL Near optimal: 100-129 mg/dL Borderline high: 130-159 mg/dL High: >160 mg/dL Calculated using the Alejandro LDL-C estimating equation. This equation was implemented on 2024. Prior to this date LDL-C was estimated using the Friedewald equation. Literature References: 1. Expert Panel on Integrated Guidelines for Cardiovascular Health and Risk Reduction in Children and Adolescents. Pediatrics 2011;128:S213 2. NCEP Expert Panel. Circulation 2004;110:227 3. Alejandro Ortega et al. LENIN Cardiol. 2019March 29;5(5):540-548. doi: 10.1001/[email or web address].2020.0013 Current Interpretive Data was last revised on 2024. Testing performed by: [facility], [address] [place] [address]., [address] Non-HDL Cholesterol 128 mg/dL VALERY Comment: Interpretive Data Ages < or = 19 years Acceptable: <120 mg/dL Borderline high: 120-144 mg/dL High: >145 mg/dL Ages > or = 20 years When triglycerides are >200 mg/dL, Non-HDL cholesterol is a secondary target of therapy with treatment goals that are 30 mg/dL greater than the LDL cholesterol target. Literature References: 1. Expert Panel on Integrated Guidelines for Cardiovascular Health and Risk Reduction in Children and Adolescents. Pediatrics 2011;128:S213 2. NCEP Expert Panel. Circulation 2004;110:227 Current Interpretive Data was last revised on 2018. Testing performed by: [address] [address] Chol/HDL ratio 3 CERNER CH Comment:Testing performed by : [address] [address] Blood 05/28/2025 9:14 AM CDT 05/28/2025 3:52 PM CDT us Helena Becker ELECTRO OPT[employer] ENGINEER LAB BLOOD ORDERABLES Final Re sult [place] [address] [address] Department [place] [address] * (ABNORMAL) Comprehensive metabolic panel (05/28/2025 9:14 AM CDT) Sodium 137 135 - 145 mmol/L Comment:Testing performed by : [address] [address] Potassium, pl 4.6 3.3 - 4.9 mmol/L CERNER CH Comment:Testing performed by : [address] [address] Chloride 103 97 - 110 mmol/L CERNER CH Comment:Testing performed by : [address] [address] CO2 24 22 - 32 mmol/L CERNER CH Comment:Testing performed by : [address] [address] Anion gap 10 2 - 15 mmol/L CERNER CH Comment:Testing performed by : [address] [address] BUN 14 6 - 25 mg/dL CERNER CH Comment:Testing performed by : [address] [address] Creatinine 0.51(L) 0.60 - 1.10 mg/dL CERNER CH Comment:Testing performed by : [address] [address] Glucose 114 70 - 199 mg/dL CERNER Comment: Interpretive Data Fasting glucose >/= 126 mg/dl is diagnostic for diabetes. Fasting is defined as no caloric intake for at least 8 hours. Fasting glucose between 100 mg/dl to 125 mg/dl is diagnostic of prediabetes. In a patient with classic symptoms of hyperglycemia or hyperglycemic crisis, a random glucose >/= 200 mg/dl is diagnostic for diabetes. In the absence of unequivocal hyperglycemia, results should be confirmed by repeat testing. The classification and Diagnosis of Diabetes Diabetes Care 2021; 46: S19-S40. Current interpretive data was last revised 2022. Testing performed by: [facility], [address] [place] [address]., [address] Calcium 8.9 8.5 - 10.3 mg/dL CERNER Comment:Testing performed by : [address] [address] Bilirubin, total 0.3 0.1 - 1.2 mg/dL CERNER CH Comment:Testing performed by : [address] [address] Protein, pl 7.7 6.5 - 8.5 g/dL CERNER CH Comment:Testing performed by : [address] [address] Albumin 4.3 3.5 - 5.0 g/dL CERNER CH Comment:Testing performed by : [address] [address] Alk phos 59 40 - 130 Units/L CERNER CH Comment:Testing performed by : [address] [address] ALT 34 7 - 45 Units/L CERNER CH Comment:Testing performed by : [address] [address] AST 33 10 - 45 Units/L CERNER CH Comment:Testing performed by : [address] [address] Blood 05/28/2025 9:14 AM CDT 05/28/2025 3:52 PM CDT us Helena Bekcer NP LAB BLOOD ORDERABLES Final Re sult [place] [address] [address] [facility] [place] [address] * XR Hand Right 3 or More Views (05/26/2025 6:28 PM CDT) Anatomical Region Laterality Modality Upper Extremities, Hand Right Computed Radiography 05/26/2025 6:56 PM CDT Narrative 05/26/2025 7:05 PM CDT EXAM DESCRIPTION: XR HAND LEFT 3 OR MORE VIEWS; XR HAND RIGHT 3 OR MORE VIEWS REASON FOR STUDY: Repetitive use injury Patient arrives for evaluation of bilateral hand tingling and pain increasing over the last week. Patient states her symptoms are worse on the right. ; Bilateral hand pain. Repetitive use injury Patient arrives for evaluation of bilateral hand tingling and pain increasing over the last week. Patient states her symptoms are worse on the right. TECHNIQUE: 3 radiographic view(s) of the left hand . 3 radiographic views of the right hand COMPARISON: None available FINDINGS: Right and left hand: The alignment is normal. There is no fracture. Joint spaces are normal. No aggressive bone lesions or erosions. No radiodense foreign bodies. IMPRESSION: No acute osseous abnormality. THIS IS AN ELECTRONICALLY VERIFIED FINAL REPORT 05/26/2025 7:05 PM - Electronically signed by Mable Enciso M.D. AT: AT Report ID: [id number] Reading Location: [id number] Procedure Note Mable Enciso MD - 05/26/2025 EXAM DESCRIPTION: XR HAND LEFT 3 OR MORE VIEWS; XR HAND RIGHT 3 OR MOREVIEWS REASON FOR STUDY: Repetitive use injury Patient arrives for evaluation of bilateral hand tingling and painincreasing over the last week. Patient states her symptoms are worse on the right.; Bilateral hand pain. Repetitive use injury Patient arrives for evaluation of bilateral hand tingling and painincreasing over the last week. Patient states her symptoms are worse on the right. TECHNIQUE: 3 radiographic view(s) of the left hand . 3 radiographic views of the right hand COMPARISON: None available FINDINGS: Right and left hand: The alignment is normal. There is no fracture. Joint spaces are normal.No aggressive bone lesions or erosions. No radiodense foreign bodies. IMPRESSION: No acute osseous abnormality. THIS IS AN ELECTRONICALLY VERIFIED FINAL REPORT 05/26/2025 7:05 PM - Electronically signed by Mable Enciso M.D. AT: AT Report ID: [id number] Reading Location: [place] [address] Pas[address] STEIN IMG XR PROCEDURES Final Resu lt * XR Hand Left 3 or More Views (05/26/2025 6:28 PM CDT) Anatomical Region Laterality Modality Upper Extremities, Hand Left Computed Radiography 05/26/2025 6:56 PM CDT Narrative 05/26/2025 7:05 PM CDT EXAM DESCRIPTION: XR HAND LEFT 3 OR MORE VIEWS; XR HAND RIGHT 3 OR MORE VIEWS REASON FOR STUDY: Repetitive use injury Patient arrives for evaluation of bilateral hand tingling and pain increasing over the last week. Patient states her symptoms are worse on the right. ; Bilateral hand pain. Repetitive use injury Patient arrives for evaluation of bilateral hand tingling and pain increasing over the last week. Patient states her symptoms are worse on the right. TECHNIQUE: 3 radiographic view(s) of the left hand . 3 radiographic views of the right hand COMPARISON: None available FINDINGS: Right and left hand: The alignment is normal. There is no fracture. Joint spaces are normal. No aggressive bone lesions or erosions. No radiodense foreign bodies. IMPRESSION: No acute osseous abnormality. THIS IS AN ELECTRONICALLY VERIFIED FINAL REPORT 05/26/2025 7:05 PM - Electronically signed by Mable Enciso M.D. AT: AT Report ID: [id number] Reading Location: [id number] Procedure Note Mable Enciso MD - 05/26/2025 EXAM DESCRIPTION: XR HAND LEFT 3 OR MORE VIEWS; XR HAND RIGHT 3 OR MOREVIEWS REASON FOR STUDY: Repetitive use injury Patient arrives for evaluation of bilateral hand tingling and painincreasing over the last week. Patient states her symptoms are worse on the right.; Bilateral hand pain. Repetitive use injury Patient arrives for evaluation of bilateral hand tingling and painincreasing over the last week. Patient states her symptoms are worse on the right. TECHNIQUE: 3 radiographic view(s) of the left hand . 3 radiographic views of the right hand COMPARISON: None available FINDINGS: Right and left hand: The alignment is normal. There is no fracture. Joint spaces are normal.No aggressive bone lesions or erosions. No radiodense foreign bodies. IMPRESSION: No acute osseous abnormality. THIS IS AN ELECTRONICALLY VERIFIED FINAL REPORT 05/26/2025 7:05 PM - Electronically signed by Mable Enciso M.D. AT: AT Report ID: [id number] Reading Location: [id number] Pasquale STEIN IMG XR PROCEDURES Final Resu lt * Screening Mammogram Bilateral W Wagner (12/09/2022 2:41 PM TOOL ANALYST) Anatomical Region Laterality Modality Breast Bilateral Mammography 12/09/2022 2:43 PM TOOL ANALYST Impressions 12/09/2022 2:43 PM TOOL ANALYST There is no mammographic evidence of malignancy. A 1 year screening mammogram is recommended. BI-RADS: 1 - Negative. The patient has been or will be contacted. The patient will be entered into a reminder system with a target due date of 1 year for her next mammogram. Electronically signed by: BRUNO Cardona 12/09/2022 2:43 PM TOOL ANALYST EXAMINATION: SCREENING MAMMOGRAM BILATERAL W WAGNER ORDERING HEALTHCARE PROVIDER: FLOR LARA HISTORY: Routine screening mammography. COMPARISON: This is patient's baseline mammogram. TECHNIQUE: CC and MLO views of both breasts were obtained with digital technique using digital breast tomosynthesis with C view. Computer aided detection was utilized. FINDINGS: DENSITY: The breasts are heterogeneously dense, which may obscure small masses. BREASTS: There are no suspicious masses, suspicious calcifications, or other suspicious findings in either breast. Flor Lara MD IMG MAMMO PROCEDURES Isaura lynch Result from Last 3 Months or Most Recently Relevant to Health Maintenance Insurance [facility] H[facility]PPO Address: [facility] [address] [place] [address] [facility] [employer] [facility] H[facility]/PPO Address: [address] [address] [place] [address] Care Teams Food Manager Relationship Specialty Start Date End Date Helena Becker NP [address] [place] [address] PCP - General Family Medicine 05/26/25 Carole Freitas, PT Physical Therapist Physical Therapy 06/29/22 Emma Hendricks, [employer]LECTRO OPT[employer] ENGINEER [address] [place] [address] [address] [place] [address] Nurse Practitioner Psychiatry 09/14/22
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
--- OUTSIDE RECORDS SUMMARY | 2025-06-27 09:41 | XMS_ITS | Encounter Summary ---
Author Organization [facility] Healthcare Address [address] [place] [address] Care Team Providers Care Engine Room Helper Name Role Phone Carole Freitas PT Unavailable Unavailable Emma Hendricks [employer] Unavailable [phone] Helena Becker NP Primary Care Provider [phone] Reason for Visit * Reason Onset Date Comments Medical Question/Miscellaneous 05/28/2025 Encounter Details Date Type Department Care Team (Late st Contact Info) Description 05/28/2025 Telephone [facility] Medical Group Primary Care at [address] [place] [id number] Helena Becker [employer] [address] [place] [address] [address] [place] [id number] Medical Question/Miscellaneous Social History Tobacco Use Types Packs/Day Years Used Date Smoking Tobacco: Every Day Cigarettes Smokeless Tobacco: Never Alcohol Use Standard Drinks/Week Comments Yes 0 [...] on file 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 Please reach out to patient. Does message need to be routed? Yes-Action Needed documented in this encounter Plan of Treatment Not on file documented as of this encounter Visit Diagnoses Not on filedocumented in this encounter Care Teams Engine Room Helper Relationship Specialty Start Date End Date Helena Becker NP [address] [facility] [address] [place] [address] PCP - General Family Medicine 05/26/25 Carole Freitas PT Physical Therapist Physical Therapy 06/29/22 Emma Hendricks, THOR [address] [facility] [address] [place] [address] Nurse Practitioner Psychiatry 09/14/22 documented as of this encounter
--- OUTSIDE RECORDS SUMMARY | 2025-06-27 09:41 | XMS_ITS | Clinical Summary ---
Author Organization [facility] Address [address] [place] [address] Phone Care Team Providers Care Salvage Inspector Name Role Phone Pass, Lori Senior INDERJIT, SPECIAL EDUCATION INCLUSION TEACHER Unavailable [phone] Leigh Ann Roach MD Primary Care Provider [phone] Allergies Active Allergy Reactions Criticality Noted Date [...] Comments Blood Pressure 120/75 12/09/2024 4:17 PM MEDICAL RECORDS MANAGER Pulse 83 12/09/2024 4:17 PM MEDICAL RECORDS MANAGER Temperature 36.7 C (98 F) 12/09/2024 12:55 PM MEDICAL RECORDS MANAGER Respiratory Rate 16 12/09/2024 4:17 PM MEDICAL RECORDS MANAGER Oxygen Saturation 100% 12/09/2024 4:17 PM MEDICAL RECORDS MANAGER Inhaled Oxygen Concentration - - Weight 70.8 kg (156 lb) 12/09/2024 12:55 PM MEDICAL RECORDS MANAGER Height 162.6 cm (5' 4) 12/09/2024 12:55 PM MEDICAL RECORDS MANAGER Body Mass Index 26.78 12/09/2024 12:55 PM MEDICAL RECORDS MANAGER Plan of Treatment Health Maintenance Due Date Last Done Comments Hepatitis C Virus (HCV) Screening 1982 Human Papillomavirus (HPV) Immunization (1 - 3-dose series) 1997 Hepatitis B Immunization (1 of 3 - 19+ 3-dose series) 2001 Mammogram 12/09/2023 12/09/2022 SARS-COV-2 Immunization ( season) 2024 10/02/2021, 09/11/2021 Influenza Immunization (#1) 2025 09/01/2019 DTaP/Tdap/Td Immunization (8 - Td or Tdap) [...] patient's age to complete this topic Insurance [address] Care Teams Salvage Inspector Relationship Specialty Start Date End Date Leigh Ann Roach MD [address] [place] [address] [address] [place] [address] PCP - General Family Medicine 04/18/23 Lori Shabazz APRN, SPECIAL EDUCATION INCLUSION TEACHER [address] [facility] [address] [place] [address] Certified Nurse Practitioner 10/03/19
--- OUTSIDE RECORDS SUMMARY | 2025-06-27 09:41 | XMS_ITS | Encounter Summary ---
Author Organization [facility] Healthcare Address [address] [place] [address] Care Team Providers Care Quality Control Projectionist Name Role Phone Carole Freitas PT Unavailable Unavailable Emma Hendricks SUBSURFACE AUGMENTEE OPERATOR Unavailable [phone] Helena Becker NP Primary Care Provider [phone] Encounter Details Date Type Department Care Team (Late st Contact Info) Description 05/29/2025 Results Follow-Up [facility] Medical Group Primary Care at [place] [phone] Helena Becker, SUBSURFACE AUGMENTEE OPERATOR [address] [place] [address] Hepatitis B Surface Antigen Blood, Hepatitis B surface antibody (immune status) Blood, Hepatitis C antibody Blood, Additional followed-up results: 9 Social History Tobacco Use Types Packs/Day Years [...] on file 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 Gender Identity Not on file Sexual Orientation Not on file documented as of this encounter Plan of Treatment Not on file documented as of this encounter Visit Diagnoses Not on filedocumented in this encounter Care Teams Quality Control Projectionist Relationship Specialty Start Date End Date Helena Becker NP [address] [place] [address] PCP - General Family Medicine 05/26/25 Carole Freitas, SUKHJINDER Physical Therapist Physical Therapy 06/29/22 Emma Hendricks, THOR [address] [facility] [address] [place] [address] Nurse Practitioner Psychiatry 09/14/22 documented as of this encounter
--- OUTSIDE RECORDS SUMMARY | 2025-06-27 09:42 | XMS_ITS | Clinical Summary ---
Author Organization [facility] Address [address] [place] [address] Care Team Providers Care Registration Officer Name Role Phone Carole Freitas PT Unavailable Unavailable Emma Hendricks CORRESPONDENCE DICTATOR Unavailable [phone] Helena Becker NP Primary Care Provider [phone] Allergies Active Allergy Reactions Criticality Noted Date [...] as needed for diarrhea 12 tablet 01/09/20 22 Active Additional Information Patient not taking.Reported on 09/14/2022 lidocaine viscous (XYLOCAINE) 2 % solution Apply 15 mL to the mouth or throat every 3 (three) hours 200 mL 05/11/20 25 Active Additional Information Patient not taking.Reported on 05/28/2025 ketorolac (TORADOL) 10 mg tablet Take 1 tablet (10 mg total) by mouth every 6 (six) hours as needed for pain 20 tablet 05/11/20 Active Additional Information Patient not taking.Reported on 05/28/2025 LORazepam (Ativan) 1 mg tablet Take 1 tablet (1 mg total) by mouth 2 (two) times a day as needed for anxiety for up to 4 doses 4 tablet 05/11/20 Active Additional Information Patient not taking.Reported on 05/28/2025 lidocaine (XYLOCAINE) 5 % ointment Apply topically 2 (two) times a day Massage into areas of pain 2-3 times daily as directed. Collaborating physician Porfirio Posey MD 120 g 1 05/26/20 Active Additional Information Patient not taking.Reported on [...] Department Care Team Description 06/13/2025 Orders Only [facility] Primary Care at [address] [phone] Helena Becker NP Paresthesia of hand, bilateral (Primary Dx) 05/30/2025 Orders Only [facility] Primary Care at [address] [phone] Helena Becker NP 05/29/2025 Results Follow-Up [facility] Primary Care at [address] [phone] Helena Bekcer NP Hepatitis B Surface Antigen Blood, Hepatitis B surface antibody (immune status) Blood, Hepatitis C antibody Blood, Additional followed-up results: 9 05/28/2025 9:20 AM CDT Lab [facility] Outpatient Lab - Outpatient Center at [address] [address] Need for hepatitis B screening test; Need for hepatitis C screening test; Screening for diabetes mellitus; Screening, anemia, deficiency, iron; Screening for thyroid disorder; Screening for lipid disorders; Vitamin D deficiency 05/28/2025 8:30 AM CDT Office Visit [facility] Primary Care at [address] [phone] Helena Becker NP Encounter for medical examination [...] to 31.9 in adult, unspecified obesity type 05/28/2025 Telephone [facility] Primary Care at [address] [place] [phone] Helena eBcker NP Medical Question/Miscellaneo us 05/26/2025 5:26 PM CDT - 05/26/2025 7:44 PM CDT Emergency [facility] Emergency Department [address] [place] [address] Paresthesia of hand, bilateral (Primary Dx); Bilateral hand pain Discharge Disposition: Discharge to home or self care 05/11/2025 1:30 PM CDT - 05/11/2025 2:27 PM CDT Emergency [facility] Emergency Department [address] [place] [address] Pain, dental (Primary Dx); Anxiety Discharge Disposition: Discharge to home or self care from Last 3 Months Immunizations Immunization Administration Dates Next Due DTP 07/18/1987, 4,02/13/1983,12/11,1982 DTaP 07/04/1996 Influenza, Quadrivalent, Spl it, Preservative Free, Intramuscular 09/01/2019 MMR 08/20/1987,02/12/1984 OPV 07/18/1987, 4,02/13/1983,12/11,1982 Tdap 09/08/2019 Surgical History Surgery Date Site/Laterality Comments HYSTERECTOMY 09/04/2024 Medical History Medical History Date Comments Depression [...] on file Legal Sex Female 7:17 PM TIME LOCK EXPERT Gender Identity Not on file Sexual Orientation [...] 05/28/2025 8:30 AM CDT Plan of Treatment Health Maintenance Due Date Last Done Comments HPV Vaccines (1 - 3-dose SCDM series) 2009 Breast Cancer Screening-Mammogram 12/09/2023 12/09/2022 Covid-19 Vaccine ( season) 2024 10/02/2021, 09/11/2021 Influenza Vaccine (#1) 2025 09/01/2019 Pneumococcal vaccine <65 (1 of 2 - PCV) 05/09/2026 Postponed from 2001 (Patient declined, but will receive in the future) Depression Screening 05/28/2026 05/28/2025 Regular Well Visit/Exam 18-64 05/28/2026 05/28/2025 Varicella Vaccines (1 of 2 - 13+ 2-dose series) 05/28/2026 Postponed from 1995 (Patient declined, but will receive in the future) DTaP/Tdap/Td Vaccine (8 - Td or Tdap) 09/08/2029 09/08/2019, 07/04/1996, 07/18/1987, Additional history exists Hepatitis B Screening Completed 05/28/2025 Hepatitis C Screening Completed 05/28/2025 Procedures Procedure Name Priority Date/Time Associated Diagnosis [...] Read Routine (OP Routine) 12/09/2022 2:41 PM TIME LOCK EXPERT Dysmenorrhea, unspecified Encounter for screening mammogram for [...] was last reviewed 2021. Testing performed by: [facility], [address] [facility], [place]., [address] Blood 05/28/2025 9:14 AM CDT 05/28/2025 4:22 PM CDT us Helena Becker NP LAB BLOOD ORDERABLES Final Re sult [facility] [address] [place] [address] [place] [address] * (ABNORMAL) Differential, auto (05/28/2025 9:14 AM CDT) Neutrophil abs 9.08(H) 1.50 - 6.50 K/cumm Comment:Testing performed by : [address] [address] Imm gran abs 0.04 0.00 - 0.10 K/cumm CERNER CH Comment:Testing performed by : [address] [address] Lymphocyte abs 1.48 0.80 - 3.30 K/cumm CERNER CH Comment:Testing performed by : [address] [address] Monocyte abs 0.73 0.20 - 0.80 K/cumm CERNER CH Comment:Testing performed by : [address] [address] Eosinophil abs 0.02 0.00 - 0.50 K/cumm CERNER CH Comment:Testing performed by : [address] [address] Basophil abs 0.02 0.00 - 0.10 K/cumm CERNER CH Comment:Testing performed by : [address] [address] Neutrophil pct 79.8 % CERNER CH Comment: Interpretive Data Percent cell count reference ranges are not reported, since discordance with absolute values may lead to misinterpretation of CBC data. Current Interpretive Data was last revised on 2018. Testing performed by: [address] [address] Imm gran pct 0.4 % CERNER CH Comment: Interpretive Data Percent cell count reference ranges are not reported, since discordance with absolute values may lead to misinterpretation of CBC data. Current Interpretive Data was last revised on 2018. Testing performed by: [address] [address] Lymphocyte pct 13.0 % CERNER CH Comment: Interpretive Data Percent cell count reference ranges are not reported, since discordance with absolute values may lead to misinterpretation of CBC data. Current Interpretive Data was last revised on 2018. Testing performed by: [facility], [address] [place] [address]., [address] Monocyte pct 6.4 % VALERY Comment: Interpretive Data Percent cell count reference ranges are not reported, since discordance with absolute values may lead to misinterpretation of CBC data. Current Interpretive Data was last revised on 2018. Testing performed by: [address] [address] Eosinophil pct 0.2 % VALERY Comment: Interpretive Data Percent cell count reference ranges are not reported, since discordance with absolute values may lead to misinterpretation of CBC data. Current Interpretive Data was last revised on 2018. Testing performed by: [address] [address] Basophil pct 0.2 % VALERY Comment: Interpretive Data Percent cell count reference ranges are not reported, since discordance with absolute values may lead to misinterpretation of CBC data. Current Interpretive Data was last revised on 2018. Testing performed by: [address] [address] Blood 05/28/2025 9:14 AM CDT 05/28/2025 3:52 PM CDT Helena Becker CORRESPONDENCE DICTATOR LAB BLOOD ORDERABLES Final Re sult [address] Department [place] [address] * (ABNORMAL) CBC with auto differential (05/28/2025 9:14 AM CDT) WBC 11.37(H) 3.80 - 9.90 K/cumm Comment:Testing performed by : [address] [address] Hgb 13.3 11.9 - 15.5 g/dL VALERY Comment:Testing performed by : [address], [address] Hct 41.8 35.6 - 45.5 % VALERY Comment:Testing performed by : [address] [place]., [address] Plt 296 150 - 400 K/cumm CERNER Comment:Testing performed by : [facility], [address] [place] [address], [address] MPV 10.1 9.1 - 12.3 fL CERNER CH Comment:Testing performed by : [address], [address] RBC 4.45 3.90 - 5.20 M/cumm CERNER CH Comment:Testing performed by : [facility], [address] [place] [address], [address] MCV 93.9 81.3 - 96.4 fL CERNER CH Comment:Testing performed by : [address], [address] MCH 29.9 27.1 - 33.3 pg CERNER CH Comment:Testing performed by : [address], [address] MCHC 31.8(L) 32.3 - 35.7 g/dL CERNER CH Comment:Testing performed by : [address], [address] RDW CV 12.6 11.1 - 14.9 % CERNER Comment:Testing performed by : [address], [address] RDW SD 43.4 35.7 - 48.1 fL CERNER Comment:Testing performed by : [address], [address] NRBC abs 0.00 0.00 - 0.01 K/cumm CERNER Comment:Testing performed by : [address], [address] Blood 05/28/2025 9:14 AM CDT 05/28/2025 3:52 PM CDT us Helena Becker CORRESPONDENCE DICTATOR LAB BLOOD ORDERABLES Final Re sult [address] Department [place] [address] * Hepatitis C antibody Blood (05/28/2025 9:14 [...] last revised on 2020. Testing performed by: [facility], [address] [place] [address]., [address] Blood 05/28/2025 9:14 AM CDT 05/28/2025 3:52 PM CDT Helena Becker NP LAB MICROBIOLOGY - GENERAL OR DERABLES Final Result Performing Organization Address [facility] Co de Phone Number [facility] [address] [address] [employer] [place] [address] * Hepatitis B core antibody, total Blood (05/28/2025 9:14 AM CDT) Pathologist [facility] Hep B core IgG/IgM Nonreactive Nonreactive Comment:Testing performed by : [facility], [address] [place]., [address] Blood 05/28/2025 9:14 AM CDT 05/29/2025 10:29 AM CDT Helena Becker NP LAB MICROBIOLOGY - GENERAL OR DERABLES Final Result Performing Organization Address City/[facility]/ZIP Co de Phone Number [facility] [address] [address] Department [place] [address] * Vitamin D 25 hydroxy (05/28/2025 9:14 AM CDT) Pathologist [facility] Vitamin D 25-OH 31 30 - 80 ng/mL Comment:Testing performed by : [address] [address] Blood 05/28/2025 9:14 AM CDT 05/28/2025 3:52 PM CDT Helena Becker NP LAB BLOOD ORDERABLES Final Re sult Performing Organization Address [facility]/ZIP Co de Phone Number VALERY GOMEZ [address] Department of Laboratories [place] [phone] * Hepatitis B surface antibody (immune status) [...] last revised on 20. Testing performed by: [facility], [address] [place] [address]., [address] Blood 05/28/2025 9:14 AM CDT 05/28/2025 3:52 PM CDT Helena Becker NP LAB MICROBIOLOGY - GENERAL OR DERABLES Final Result Performing Organization Address [facility] de Phone Number VITORMARY [address] [address] Department [place] [address] * Hepatitis B Surface Antigen Blood (05/28/2025 9:14 AM CDT) HepBsAg Nonreactive Nonreactive Comment:Testing performed by : [address] [address] Blood 05/28/2025 9:14 AM CDT 05/28/2025 3:52 PM CDT Helena Becker NP LAB MICROBIOLOGY - GENERAL OR DERABLES Final Result Performing Organization Address City/[facility] Co de Phone Number VALERY [address] Department [place] [address] * TSH (05/28/2025 9:14 AM CDT) Thyroid Stimulating Hormone 0.61 0.30 - 4.20 mcIUnit/mL Comment:Testing performed by : [address] [address] Blood 05/28/2025 9:14 AM CDT 05/28/2025 3:52 PM CDT Helena Becker NP LAB BLOOD ORDERABLES Final Re sult Performing Organization Address [facility] de Phone Number VALERY [address] [place] [address] * Hemoglobin A1c (05/28/2025 9:14 AM CDT) Hgb A1C 5.0 4.0 - 5.6 % Comment:Testing performed by : [facility], [address] [place] [address]., [address] Estimated Average Glucose 97 mg/dL VALERY Comment: The ADA recommends reporting an estimated Average Glucose (eAG) with all Hemoglobin A1c results using the equation derived from a study of 507 normal and diabetic adults. Minority populations were underrepresented and children were not included. (Diabetes Care 31:7543-7662, 2008). The eAG is not equivalent to a fasting glucose. Testing performed by: [facility], [address] [place] [address]., [address] Blood 05/28/2025 9:14 AM CDT 05/28/2025 3:52 PM CDT Helena Becker NP LAB BLOOD ORDERABLES Final Re sult Performing Organization Address [facility] de Phone Number VALERY GOMEZ [address] [facility] Emergency Department [place] [address] * Lipid panel (05/28/2025 9:14 AM CDT) [...] last revised on 2018. Testing performed by: [facility], [address] [place] [address]., [address] Triglycerides 49 <=149 mg/dL VALERY Comment: Interpretive Data Ages < [...] last revised on 2018. Testing performed by: [facility], [address] [place] [address]., [address] HDL 66 >=40 mg/dL VALERY Comment: Interpretive Data Ages < [...] last revised on 2018. Testing performed by: [facility], [address] [place] [address]., [address] LDL, calculated 119 <=129 mg/dL VALERY Comment: [...] NCEP Expert Panel. Circulation 2004;110:227 3. Alejandro M et al. LENIN Cardiol. 2020 March 29;5(5):540-548. doi: 10.1001/jamacardio.2020.0013 Current Interpretive Data was last revised on 2024. Testing performed by: [address] [address] Non-HDL Cholesterol 128 mg/dL VALERY Comment: Interpretive [...] last revised on 2018. Testing performed by: [address] [address] Chol/HDL ratio 3 VALERY Comment:Testing performed by : [address] [address] Blood 05/28/2025 9:14 AM CDT 05/28/2025 3:52 PM CDT us Helena Becker NP LAB BLOOD ORDERABLES Final Re sult [facility] [address] Department [place] [address] * (ABNORMAL) Comprehensive metabolic panel (05/28/2025 9:14 AM CDT) Sodium 137 135 - 145 mmol/L Comment:Testing performed by : [facility], [address] [place] [address]., [address] Potassium, pl 4.6 3.3 - 4.9 mmol/L [facility] Comment:Testing performed by : [facility], [address] [place] [address]., [address] Chloride 103 97 - 110 mmol/L [facility] Comment:Testing performed by : [address] [address] CO2 24 22 - 32 mmol/L [facility] Comment:Testing performed by : [address] [address] Anion gap 10 2 - 15 mmol/L [facility] Comment:Testing performed by : [address] [address] BUN 14 6 - 25 mg/dL [facility] Comment:Testing performed by : [address] [address] Creatinine 0.51(L) 0.60 - 1.10 mg/dL [facility] Comment:Testing performed by : [address] [address] Glucose 114 70 - 199 mg/dL [facility] Comment: Interpretive Data Fasting glucose >/= 126 [...] classification and Diagnosis of Diabetes Diabetes Care 202; 46: S19-S40. Current interpretive data was last revised 2022. Testing performed by: [address] [address] Calcium 8.9 8.5 - 10.3 mg/dL [facility] Comment:Testing performed by : [facility] [address] [place] [address]., [address] Bilirubin, total 0.3 0.1 - 1.2 mg/dL CERNER Comment:Testing performed by : [address] [address] Protein, pl 7.7 6.5 - 8.5 g/dL CERNER CH Comment:Testing performed by : [address], [address] Albumin 4.3 3.5 - 5.0 g/dL CERNER CH Comment:Testing performed by : [address], [address] Alk phos 59 40 - 130 Units/L CERNER CH Comment:Testing performed by : [address], [address] ALT 34 7 - 45 Units/L CERNER CH Comment:Testing performed by : [address], [address] AST 33 10 - 45 Units/L C[facility] CH Comment:Testing performed by : [address], [address] Blood 05/28/2025 9:14 AM CDT 05/28/2025 3:52 PM CDT Helena Becker CORRESPONDENCE DICTATOR LAB BLOOD ORDERABLES Final Re sult Performing Organization Address City/State/[facility] Co de Phone Number [address] [place] [address] * XR Hand Right 3 or More [...] Mable Enciso M.D. AT: AT Report ID: [id number] Reading Location: [id number] Procedure Note Mable Enciso MD - 05/26/2025 [...] Mable Enciso M.D. AT: AT Report ID: [id number] Reading Location: [id number] us Pasquale STEIN IMG XR PROCEDURES Final Resu [...] Mable Enciso M.D. AT: AT Report ID: [id number] Reading Location: [id number] Procedure Note Mable Enciso MD - 05/26/2025 [...] Mable Enciso M.D. AT: AT Report ID: [id number] Reading Location: [place] [address] Pasquale STEIN IMG XR PROCEDURES Final Resu lt * Screening Mammogram Bilateral W Wagner (12/09/2022 2:41 PM TIME LOCK EXPERT) Anatomical Region Laterality Modality Breast Bilateral Mammography 12/09/2022 2:43 PM TIME LOCK EXPERT Impressions 12/09/2022 2:43 PM TIME LOCK EXPERT There is no mammographic evidence of malignancy. A 1 year screening mammogram is recommended. BI-RADS: 1 - Negative. The patient has been or will be contacted. The patient will be entered into a reminder system with a target due date of 1 year for her next mammogram. Electronically signed by: BRUNO Cardona 12/09/2022 2:43 PM TIME LOCK EXPERT EXAMINATION: SCREENING MAMMOGRAM BILATERAL W WAGNER ORDERING HEALTHCARE PROVIDER: FLOR DRISCOLL HISTORY: Routine [...] Most Recently Relevant to Health [place] [address] [facility] CHOICE PLUS [facility] CHOICE PLUS Care Teams Registration Officer Relationship Specialty Start Date End Date Helena Becker NP [address] [facility] [address] [place] [address] PCP - General Family Medicine 05/26/25 Carole Freitas PT Physical Therapist Physical Therapy 06/29/22 Emma Hendricks NP [address] [place] [address] DR LAMAR [address] [place] [address] Nurse Practitioner Psychiatry 09/14/22
[2025-06-27] MEDS: TRIAMCINOLONE ACET INJ 40 MG/ML VIAL IM (09:47)
== END 2025-06-27 10:09 | disposition home or self-care (01) ==
PROVIDERS: Emergency Provider Nurse Practitioner Family; PCP Nurse Practitioner
DX: L23.7 Allergic contact dermatitis due to plants, except food (principal); Z87.891 Personal history of nicotine dependence; F41.9 Anxiety disorder, unspecified; F31.9 Bipolar disorder, unspecified
CPT/HCPCS: 96372; 99213; G0463; J3301

== ENCOUNTER 2025-09-06 15:59 | Emergency (ER) | payer OTHER, SELFPAY ==
--- NOTE | 2025-09-06 16:04 | ED_ITS ---
HPI - General Adult General Chief complaint: Upper Respiratory Infection Stated complaint: jaw pop/head pressure/nausea Time Seen by Provider: 09/06/25 16:07 Source: patient, RN notes reviewed and old records reviewed Mode of arrival: ambulatory Limitations: no limitations History of Present Illness HPI narrative: 45-year-old female presents [facility] with complaints of Body aches,head pressure, nausea, sinus pressure, runny nose that has improved. Symptoms 2-3 days. Patient also concern for urinary frequency that is been going on for over week. Denies any cough or sore throat. Related Data Home Medications ?Medication ?Instructions ?Recorded ?Confirmed ?Last Taken ?Type ariprazole 04/29/25 Unknown History clonazepam 0.5 mg tablet mg 06/27/25 Unknown History ergocalciferol (vitamin D2) 1,250 06/27/25 Unknown H istory mcg (50,000 unit) capsule lamotrigine 100 mg tablet mg 06/27/25 Unknown History propranolol 10 mg tablet mg 06/27/25 Unknown History fluoxetine 40 mg capsule mg 09/06/25 Unknown History tirzepatide (weight loss) 5 mg/0.5 mg subcut 09/06/25 Unknown History mL subcutaneous pen injector (Zepbound) Allergies Allergy/AdvReac Type Severity Reaction Status Date / Time clindamycin Allergy THROAT Verified 09/06/25 16:27 TIGHTENING albuterol AdvReac TIGHTNESS Verified 09/06/25 16:27 IN LINGS aripiprazole (From Abilify) AdvReac Hallucinating, Verified 09/06/25 16:27 CONFUSION bupropion (From Wellbutrin) AdvReac INCREASED Verified 09/06/25 16:27 ANXIETY butorphanol (From Stadol) AdvReac Anxiety Verified 09/06/25 16:27 citalopram AdvReac INCREASED Verified 09/06/25 16:27 DEPRESSION zinc AdvReac fatigue, Verified 09/06/25 16:27 CHEST PAINS Review of Systems Review of Systems: All systems reviewed & are unremarkable except as noted in HPI and below Constitutional: Constitutional: Reports as per HPI ENT: Reports as per HPI Cardiovascular: Cardiovascular: Reports no additional cardiovascular complaints, Denies chest pain and Denies dyspnea Respiratory: Respiratory: Reports no additional respiratory complaints, Denies chest congestion, Denies cough and Denies dyspnea Musculoskeletal: Musculoskeletal: Reports no additional musculoskeletal complaints Integumentary/Breasts: Skin/Breast: Reports system reviewed and no additional complaints, except as docu [facility] Past Medical History Medical History Arm fracture, left PTSD (post-traumatic stress disorder) Bipolar disorder Anxiety and depression Surgical History Surgical History H/O tubal ligation H/O: hysterectomy History of tonsillectomy Family History Family History Mother Family history non-contributory Social History Social History Smoking packs per day: 0.2 Smoking cigarettes per day: 4.0 Years smoked: 5 Smoking pack-years: 1.00 Smoking status: Former smoker Tobacco type: cigarettes Smoking end date: 05/29/22 Substance use: current Substance use type: marijuana Living arrangements: with family Additional living arrangements comments: PARENTS Spiritual care concerns: No Comments At the time of my signature, I reviewed and agree with the nursing past medical, surgical, social, and family history. There is no relevant family history pertinent to the patient complaint. Exam Const: General: cooperative, no acute distress, well developed, alert, tired appearing and well nourished Nutritional Appearance: well nourished Orientation/consciousness: patient oriented x3 Limitations: no limitations HENMT: Head: normal to inspection Ears: hearing grossly normal bilaterally, external ears normal, TM's normal bilaterally, EAC's normal, mastoids normal and no periauricular adenopathy Face and sinus: normal facial exam, sinuses nontender and face symmetric Mouth: Yes Normal oral and palatal mucosa present, Yes lip normal, Yes tongue normal and Yes moist mucous membranes abnormal Throat: posterior oropharynx normal, uvula midline, postnasal drainage and no uvular edema Eyes: General: appearance normal, both eyes and all related structures Alignment and Position: alignment normal Neck: Neck: normal visual inspection, full ROM, no lymphadenopathy and no meningeal signs Chest: Chest palpation & inspection: normal inspection of the chest Resp: Effort & Inspection: normal respiratory effort and able to speak in complete sentences Auscultation: clear to auscultation bilaterally, no crackles, no rales, no rhonchi and no wheezes Cardio: Rate: regular rate Skin: General skin exam: normal color and no rashes or lesions noted Neuro: General: patient oriented x3, gait normal, moves all extremities and no meningeal signs Cognition (Neuro): normal cognition Speech: normal speech Gait exam (Neuro): Normal gait present Extrem: General: normal to inspection, full ROM, capillary refill normal and normal gait Psych: Appearance: grossly normal and well kempt Mental Status: mental status grossly normal Speech and movement: Normal speech and movement present and Clear speech present Affect: normal affect Attitude: cooperative Course Course Level of Care: Express Care Visit Vital Signs Vital signs: Vital Signs Temperature 98.3 F 09/06/25 16:13 Pulse Rate 74 09/06/25 16:13 Respiratory Rate 16 09/06/25 16:13 Blood Pressure 113/77 09/06/25 16:13 Pulse Oximetry 100 09/06/25 16:13 Oxygen Delivery Room Air 09/06/25 16:13 Temperature 98.3 F 09/06/25 16:13 Pulse Rate 74 09/06/25 16:13 Respiratory Rate 16 09/06/25 16:13 Blood Pressure 113/77 09/06/25 16:13 Pulse Oximetry 100 09/06/25 16:13 Oxygen Delivery Room Air 09/06/25 16:13 Reviewed Medical Decision Making MDM Narrative Medical decision making narrative: patient sitting in exam room. Patient is nontoxic, vitals stable. Appears uncomfortable. Reports toothache 3 weeks ago noting to have some jaw discomfort. Encourage patient to follow-up with dental provider. Reports 2-3 day history of sinus is, runny nose that started today. Denies cough, denies sore throat. Flu and COVID were negative, urine was negative patient is appropriate for outpatient treatment of viral URIwith close follow- up Discharge instructions reviewed with patient, as well as provided in writing per nursing staff. The instructions also include specific and strict return/GO TO THE ER as well as f/u information. All questions have been answered, and the patient deny any further questions with discharge and discharge plan. Some parts of this dictation were generated by voice recognition software and may contain typographical and/or grammatical inaccuracies. Differential Diagnosis Differential Diagnosis: flu, COVID, strep, viral URI, otitis media, serous otitis Medical Records Medical records reviewed: Yes I reviewed the external patient's medical records. Vital Signs Vital Signs: Vital Signs Temperature 98.3 F 09/06/25 16:13 Pulse Rate 74 09/06/25 16:13 Respiratory Rate 16 09/06/25 16:13 Blood Pressure 113/77 09/06/25 16:13 Pulse Oximetry 100 09/06/25 16:13 Oxygen Delivery Room Air 09/06/25 16:13 Temperature 98.3 F 09/06/25 16:13 Pulse Rate 74 09/06/25 16:13 Respiratory Rate 16 09/06/25 16:13 Blood Pressure 113/77 09/06/25 16:13 Pulse Oximetry 100 09/06/25 16:13 Oxygen Delivery Room Air 09/06/25 16:13 Reviewed Lab Data Lab results reviewed: Yes I reviewed the patient's lab results. Labs: Lab Results 09/06/25 Range/Units 16:34 POC Urine Color Yellow POC Urine Clarity Clear POC Urine pH 6.0 POC Ur Specif Hayden 1.030 POC Urine Protein Negative (Negative) POC Ur Glucose (UA) Negative (Negative) POC Urine Ketones Negative (Negative) POC Urine Blood Negative (Negative) POC Urine Nitrite Negative (Negative) POC Urine Bilirubin Negative (Negative) POC Urine Urobilinogen 1.0 POC U Leukocyte Esteras Negative (Negative) POC Influenza A Ag Negative (Negative) POC Influenza B Ag Negative (Negative) POC SARS CoV-2 Ag Negative (Negative) Reviewed Critical Care Time Critical Care Time Critical Care Time: No Discharge Plan Discharge Clinical Impression: Upper respiratory infection, Viral infection Patient Disposition: Home Condition: Stable Instructions: Upper Respiratory Infection (DC) Additional Instructions: Your rapid COVID test were negative Your rapid flu test was negative your urine dip was negative, no signs of infection Your symptoms are likely due to a viral illness, which is not treated with antibiotics. Typically viral infections last 7-10 days, can linger for couple of weeks. It is very important to treat your symptoms. Drink plenty of water, Gatorade, Pedialyte, ice pops or Jell-O. -Alternate Tylenol and Motrin per package directions for fever or pain. You can alternate every 4 hours -Antihistamine medication such as Zyrtec/Claritin/Anne Marie during the day can help improve symptoms. -doing daily nasal irrigations can help relieve pressure your sinuses. Things like a Neti pot -Use Flonase twice a day for 5 days then daily to help reduce the inflammation and dry up your sinuses. -You can also use Mucinex. Be sure to drink plenty of water with this medication at least 8 ounces with every dose and it is important to drink 8 to 10 glasses of water per day. Water is a natural decongestant -Eat and drink things that are easy to swallow, like tea or soup, or popsicles. -Oral rinses such as: Salt water gargles and/or may use topical anesthetic (eg. Chloraseptic spray) or lozenges to relieve dryness or throat pain). -Frequent hand washing or hand lip and gate builder is one of the best ways to prevent spread of infection. -Using a vaporizer or humidifier at night will also help thin secretions and help with coughing up phlegm. -Follow up with primary care provider in 7-10 days if condition is not improving - For new or worsening symptoms go directly to the nearest ER Patient Language: Guinean Prescriptions: No Action ariprazole clonazepam 0.5 mg tablet propranolol 10 mg tablet ergocalciferol (vitamin D2) 1,250 mcg (50,000 unit) capsule lamotrigine 100 mg tablet triamcinolone acetonide 0.1 % cream 1 applic topical BID Qty: 30 0RF fluoxetine 40 mg capsule Zepbound 5 mg/0.5 mL pen injector SUBCUT Follow-up/Referrals: Rosita,Helena Edwards CNP [Primary Care Provider] - 1 Week Time of Disposition: 16:53
[2025-09-06 16:13] VITALS: BP 113/77; PULSE 74; RESP 16; TEMP 36.8; O2SAT 100
[2025-09-06 16:39] LABS: EDCOVIDSCREEN Negative (Negative); EDINFLUASCREEN Negative (Negative); EDINFLUBSCREEN Negative (Negative); EDUAAPPEAR Clear; EDUABILI Negative (Negative); EDUABLOOD Negative (Negative); EDUACOLOR1 Yellow; EDUAGLUCOSE Negative (Negative); EDUAKETONE Negative (Negative); EDUALEUKO Negative (Negative); EDUANITRATE Negative (Negative); EDUAPH 6.0; EDUAPROTEIN Negative (Negative); EDUASPGRAVITY 1.030; EDUAUROBILI 1.0
== END 2025-09-06 16:55 | disposition home or self-care (01) ==
PROVIDERS: Emergency Provider Nurse Practitioner; PCP Nurse Practitioner
DX: J06.9 Acute upper respiratory infection, unspecified (principal); B34.9 Viral infection, unspecified; Z20.822 Contact with and (suspected) exposure to COVID-19; Z87.891 Personal history of nicotine dependence; F12.90 Cannabis use, unspecified, uncomplicated; F41.9 Anxiety disorder, unspecified; F31.9 Bipolar disorder, unspecified
CPT/HCPCS: 81003; 87426; 87804; 99212; G0463

== ENCOUNTER 2025-11-28 14:00 | Emergency (ER) | payer OTHER, SELFPAY ==
--- OUTSIDE RECORDS SUMMARY | 2025-09-24 05:00 | XMS_ITS ---
Author Organization [facility] [employer] [facility] Address [facility] [address] [facility] [address] [place] [address] Care Team Providers Care Larriman Helper Name Role Phone Helena Randolph Primary Care Provider Leti Abad Unavailable [phone] REASON FOR VISIT Follow Up Social History Sex Assigned At : Social History Observation Description Sex Assigned At Female Encounters Encounter Location Date Provider Diagnosis [facility] [employer] [address] [facility] [address] [place] [address] 09/24/2025 Leti Moore Plan Of Treatment No Information Progress Notes * Araceli SERRANOOB:[birth year] (45 yo F)Acc No.[id number]:09/24/2025 Patient: Loren Benitez Provider: DADA VIVAR :1980 A ge:45 Y S ex:Female Date:09/24/2025 Phone: Address:[address] [facility] Pcp:Helena NULL Subjective: * Chief Complaints: * F ollow Up Billing Information: * Procedure Codes: * Electronic signature of DADA Molina on 11/28/2025 at 02:02 PM SCHEDULING AGENT Sign off status: Pending * Provider: DADA VIVAR Date: Generated for Dolores alfonso/Abbi/eTransmitting on: 02:02 PM SCHEDULING AGENT
--- OUTSIDE RECORDS SUMMARY | 2025-11-28 14:02 | XMS_ITS | Clinical Summary ---
Author Organization [facility] Address [address] [place] [address] Phone Care Team Providers Care Cst Name Role Phone Pass, Lori Senior APRN, PILOT CAPTAIN Unavailable [phone] Helena Becker APRN, PILOT CAPTAIN Primary Care Provider Allergies Active Allergy Reactions Criticality Noted Date [...] more severe pain. 12 Tablet 3 Active ondansetron (ZOFRAN-ODT) 4 MG TABLET DISPERSIBLEIndic ations:Nausea and Vomiting Take 1 Tablet by mouth every 8 hours as needed for Nausea - 1st line. Indications: Nausea and Vomiting 10 Tablet 5 Active Active Problems Problem Noted Date Diagnosed Date Numbness and tingling in both hands 10/03/2019 Vitamin D deficiency 09/01/2019 Depression 02/28/2019 Insomnia 02/28/2019 Periodontal disease 02/28/2019 Anxiety 01/13/2019 Vertigo 01/13/2019 Encounters Date Type Department Care Team Description 11/25/2025 1:10 PM UTILITY TECHNICIAN - 11/25/2025 2:53 PM UTILITY TECHNICIAN Emergency [facility] Emergency [address] [place] [id number] Roxanna Prater, [facility] Viral syndrome Discharge Disposition: Discharged to home or Selfcare 11/25/2025 Travel from Last 3 Months Immunizations Immunization [...] Sign Reading Time Taken Comments Blood Pressure 133/72 11/25/2025 2:45 PM UTILITY TECHNICIAN Pulse 80 11/25/2025 2:45 PM UTILITY TECHNICIAN Temperature 36.7 C (98.1 F) 11/25/2025 1:09 PM UTILITY TECHNICIAN Respiratory Rate 17 11/25/2025 2:45 PM UTILITY TECHNICIAN Oxygen Saturation 100% 11/25/2025 2:45 PM UTILITY TECHNICIAN Inhaled Oxygen Concentration - - Weight 68.5 kg (151 lb) 11/25/2025 1:09 PM UTILITY TECHNICIAN Height 162.6 cm (5' 4) 11/25/2025 1:09 PM UTILITY TECHNICIAN Body Mass Index 25.92 11/25/2025 1:09 PM UTILITY TECHNICIAN Plan of Treatment Health Maintenance Due Date Last Done Comments Hepatitis C Virus (HCV) Screening 1980 Varicella Immunization (1 of 2 - 13+ 2-dose series) 1995 Hepatitis B Immunization (1 of 3 - 19+ 3-dose series) 2001 Mammogram 12/09/2023 12/09/2022 Influenza Immunization (#1) 2025 09/01/2019 SARS-COV-2 Immunization (3 - season) 2025 10/02/2021, 09/11/2021 DTaP/Tdap/Td Immunization (8 - Td or Tdap) 09/08/2029 09/08/2019, 07/04/1996, 07/18/1987, Additional history exists Respiratory Syncytial Virus (RSV) Immunization (Adult) (1 - 1-dose 75+ series) 2057 Discussion re Starting/Frequency of Mammograms Completed 12/09/2022 Human Papillomavirus (HPV) Immunization (No Doses Required) Completed Meningococcal Immunization (ACWY) Aged Out No longer eligible based on patient's age to complete this topic Pneumococcal Immunization Combined Aged Out No longer eligible based on patient's age to complete this topic Rotavirus Immunization Aged Out No lo nger eligible based on patient's age to complete this topic Procedures Procedure Name Priority Date/Time Associated Diagnosis Comments CBC WITH AUTO DIFFERENTIAL STAT 11/25/2025 1:48 PM UTILITY TECHNICIAN LIPASE STAT 11/25/2025 1:48 PM UTILITY TECHNICIAN COMPLETE BLOOD COUNT (CBC) WITH DIFF STAT 11/25/2025 1:48 PM UTILITY TECHNICIAN CMP (COMPREHENSIVE METABOLIC PANEL) STAT 11/25/2025 1:48 PM UTILITY TECHNICIAN RSV,SARS-COV-2,INFLUE NZA A&B BY PCR STAT 11/25/2025 1:28 PM UTILITY TECHNICIAN from Last 3 Months Results * (ABNORMAL) CBC with Auto Differential (11/25/2025 1:48 PM UTILITY TECHNICIAN) WBC 4.59 4.00 - 12.00 10(3)/mcL 11/25/2025 2:14 PM UTILITY TECHNICIAN [facility] RBC 4.25 3.80 - 5.30 10(6)/mcL 11/25/2025 2:14 PM UTILITY TECHNICIAN [facility] HEMOGLOBIN (HGB) 12.9 12.0 - 15.8 g/dL 11/25/2025 2:14 PM UTILITY TECHNICIAN [facility] HEMATOCRIT (HCT) 39.3 36.0 - 47.0 % 11/25/2025 2:14 PM UTILITY TECHNICIAN [facility] MCV 92.5 82.0 - 96.0 fL 11/25/2025 2:14 PM UTILITY TECHNICIAN [facility] MCH 30.4 26.0 - 34.0 pg 11/25/2025 2:14 PM UTILITY TECHNICIAN [facility] MCHC 32.8 31.0 - 36.0 g/dL 11/25/2025 2:14 PM UTILITY TECHNICIAN [facility] PLATELET COUNT 241 140 - 440 10(3)/mcL 11/25/2025 2:14 PM UTILITY TECHNICIAN [facility] RDW 12.1 11.8 - 15.5 % 11/25/2025 2:14 PM UTILITY TECHNICIAN [facility] MPV 9.0(L) 9.7 - 12.4 fL 11/25/2025 2:14 PM [facility] NEUTROPHILS 56.8 47.0 - 73.0 % 11/25/2025 2:14 PM [facility] LYMPHOCYTES 31.2 18.0 - 42.0 % 11/25/2025 2:14 PM [facility] MONOCYTES 10.2 4.0 - 12.0 % 11/25/2025 2:14 PM [facility] EOSINOPHILS 0.9 0.0 - 5.0 % 11/25/2025 2:14 PM [facility] BASOPHILS 0.7 0.0 - 1.0 % 11/25/2025 2:14 PM [facility] IMMATURE GRANULOCYTE 0.2 0.0 - 0.4 % 11/25/2025 2:14 PM [facility] ABSOLUTE NEUTROPHILS 2.61 1.60 - 7.70 10(3)/[facility] 11/25/2025 2:14 PM [facility] ABSOLUTE LYMPHOCYTES 1.43 1.30 - 3.20 10(3)/[facility] 11/25/2025 2:14 PM [facility] ABSOLUTE MONOCYTES 0.47 0.20 - 1.00 10(3)/mcL 11/25/2025 2:14 PM [facility] ABSOLUTE EOSINOPHIL 0.04 0.00 - 0.40 10(3)/[facility] 11/25/2025 2:14 PM [facility] ABSOLUTE BASOPHILS 0.03 0.00 - 0.10 10(3)/mcL 11/25/2025 2:14 PM [facility] ABSOLUTE IMMATURE GRANULOCYTE 0.01 0.00 - 0.03 10 (3) [facility]. 11/25/2025 2:14 PM [facility] NRBC PER 100 WBC 0 11/25/20 2:14 PM [facility] Blood Venipuncture / Unknown 11/25/2025 1:48 PM UTILITY TECHNICIAN 11/25/2025 2:11 PM UTILITY TECHNICIAN Roxanna Cooper Page PAC HEMATOLOGY ORDERABLES Final Result [facility] [address] [place] [address] * Lipase [id number] (11/25/2025 1:48 PM UTILITY TECHNICIAN) LIPASE 26 8 - 78 U/L 11/25/2025 2:33 PM UTILITY TECHNICIAN [facility] Blood Venipuncture / Unknown 11/25/2025 1:48 PM UTILITY TECHNICIAN 11/25/2025 2:11 PM UTILITY TECHNICIAN Roxanna Cooper Page PAC CHEMISTRY ORDERABLES Final R esult Performing Organization Address [facility]/ZIP Co de Phone Number [facility] [address] [place] [address] * (ABNORMAL) CMP (Comprehensive Metabolic Panel) (11/25/2025 1:48 PM UTILITY TECHNICIAN) SODIUM 140 136 - 145 mmol/L 11/25/2025 2:33 PM UTILITY TECHNICIAN [facility] POTASSIUM 4.2 3.5 - 5.1 mmol/L 11/25/2025 2:33 PM UTILITY TECHNICIAN [facility] CHLORIDE 106 98 - 107 mmol/L 11/25/2025 2:33 PM UTILITY TECHNICIAN [facility] CO2, VENOUS 27 22 - 30 mmol/L 11/25/2025 2:33 PM UTILITY TECHNICIAN [facility] ANION GAP 11.2 <18.0 mmol/L 11/25/2025 2:33 PM UTILITY TECHNICIAN [facility] GLUCOSE 72 70 - 99 mg/dL 11/25/2025 2:33 PM UTILITY TECHNICIAN [facility] BUN 13 5 - 18 mg/dL 11/25/2025 2:33 PM UTILITY TECHNICIAN [facility] CREATININE, BLOOD 0.71 0.60 - 1.00 mg/dL 11/25/2025 2:33 PM [facility] BUN/CREATININE RATIO 18 12 - 20 ratio 11/25/2025 2:33 PM [facility] TOTAL PROTEIN 7.4 6.0 - 8.0 g/dL 11/25/2025 2:33 PM [facility] ALBUMIN 4.4 3.5 - 5.0 g/dL 11/25/2025 2:33 PM [facility] A/G RATIO 1.5 1.0 - 2.2 11/25/2025 2:33 PM [facility] CALCIUM 9.7 8.7 - 10.5 mg/dL 11/25/2025 2:33 PM [facility] T BILI 0.4 0.2 - 1.2 mg/dL 11/25/2025 2:33 PM [facility] SGOT (AST) 20 <43 U/L 11/25/2025 2:33 PM [facility] SGPT (ALT) 19 <56 U/L 11/25/2025 2:33 PM [facility] ALKALINE PHOSPHATASE 34(L) 40 - 150 U/L 11/25/2025 2:33 PM [facility] GFR, ESTIMATED >60 >=60 11/25/2025 2:33 PM [facility] Comment: Creatinine Clearance is the preferred criteria for selecting drug dose adjustments in renally impaired patients. The GFR is provided as additional pertinent clinical information. GFR is reported in mL/min/1.73 sq m. Calculation based on the 2020 Chronic Kidney Disease Epidemiology Collaboration (CKD-EPI) equation refit without adjustment for race. GFR, EST. >60 >=60 2:33 PM [facility] Comment: Creatinine Clearance is the preferred criteria for selecting drug dose adjustments in renally impaired patients. The GFR is provided as additional pertinent clinical information. GFR is reported in mL/min/1.73 sq m. Calculation based on the 2009 Chronic Kidney Disease Epidemiology Collaboration (CKD-EPI). GFR, EST. NONAFRICAN >60 >=60 11/25/2025 2:33 PM UTILITY TECHNICIAN [facility] Comment: Creatinine Clearance is the preferred criteria for selecting drug dose adjustments in renally impaired patients. The GFR is provided as additional pertinent clinical information. GFR is reported in mL/min/1.73 sq m. Calculation based on the 2009 Chronic Kidney Disease Epidemiology Collaboration (CKD-EPI). Blood Venipuncture / Unknown 11/25/2025 1:48 PM UTILITY TECHNICIAN 11/25/2025 2:11 PM UTILITY TECHNICIAN Roxanna Cooper Page PAC CHEMISTRY ORDERABLES Final R esult Performing Organization Address [facility] Co de Phone Number [facility] [address] [place] [address] * RSV,SARS-COV-2,INFLUENZA A&B BY PCR (11/25/2025 1:28 PM UTILITY TECHNICIAN) FLU A Negative Negative, Error 11/25/2025 2:20 PM UTILITY TECHNICIAN [facility] FLU B Negative Negative 11/25/2025 2:20 PM UTILITY TECHNICIAN [facility] RESP SYNC VIRUS Negative Negative 2:20 PM UTILITY TECHNICIAN [facility] SARSCOV2 NOT DETECTED (Reference Range for this test is Not Detected) 11/25/2025 2:20 PM UTILITY TECHNICIAN [facility] Comment:This test was perfor med by a Reverse Hop Separator PCR Method. Nasal NASOPHARYNGEAL SWAB / Unknown Non-Phlebotomy Collection / Unknown 11/25/2025 1:28 PM UTILITY TECHNICIAN 11/25/2025 1:34 PM UTILITY TECHNICIAN Roxanna Cooper Page PAC MICROBIOLOGY - GENERAL ORDER CAMILO Final Result Performing Organization Address [facility] Co de Phone Number [facility] [address] [place] [address] from Last [address] [place] [address] [facility] Care Teams Cst Relationship Specialty Start Date End Date Helena Becker APRN, PILOT CAPTAIN [id number] , [facility] [address] [place] [address] PCP - General Certified Nurse Practitioner 11/25/25 Lori Shabazz APRN, PILOT CAPTAIN [address] [place] [address] [address] [place] [address] Certified Nurse Practitioner 10/03/19
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
--- OUTSIDE RECORDS SUMMARY | 2025-11-28 14:03 | XMS_ITS | Clinical Summary ---
Author Organization [facility] Address [address] [place] [address] Care Team Providers Care Airport Utility Worker Name Role Phone Carole Freitas PT Unavailable Unavailable Emma Hendricks SHORT ORDER COOK Unavailable [phone] Helena Becker NP Primary Care Provider [phone] Allergies Active Allergy Reactions Criticality Noted Date [...] total) by mouth daily 05/15/20 25 Active propranoloL (INDERAL) 10 mg tablet Take 1 tablet (10 mg total) by mouth daily 90 tablet 3 05/28/20 25 Active ergocalciferol (VITAMIN D) 50,000 unit capsule Take 1 capsule (50,000 Units total) by mouth once a week 12 capsule 3 05/30/20 25 026 Active tirzepatide, weight loss, (ZEPBOUND) 7.5 mg/0.5 mL pen injector Inject 0.5 mL (7.5 mg total) under the skin every 7 days 6 mL 11/20/20 25 026 Active tirzepatide, weight loss, (ZEPBOUND) 7.5 mg/0.5 mL pen injector Inject 0.5 mL (7.5 mg total) under the skin every 7 days 6 mL 10/23/20 25 025 Discontin ued(Reord er) Active Problems Problem Noted Date Diagnosed Date [...] Encounters Date Type Department Care Team Description 10/22/2025 Orders Only [facility] Primary Care at [address] [id number] Helena Becker NP from Last 3 Months Immunizations Immunization Administration [...] on file Legal Sex Female 7:17 PM APPLICATIONS DEVELOPMENT ANALYST Gender Identity Not on file Sexual [...] 12/09/2023 12/09/2022 Covid-19 Vaccine (3 - season) 2025 10/02/2021, 09/11/2021 Influenza Vaccine (#1) 2025 09/01/2019 [...] Procedure Name Priority Date/Time Associated Diagnosis Comments HEPATITIS C ANTIBODY Routine 05/28/2025 9:14 AM CDT Need for hepatitis C screening test SCREENING MAMMOGRAM BILATERAL W JOSE Schedule Routine, Read Routine (OP Routine) 12/09/2022 2:41 PM APPLICATIONS DEVELOPMENT ANALYST Dysmenorrhea, unspecified Encounter for screening mammogram for malignant neoplasm of breast from Last 3 Months or Most Recently Relevant to Health Maintenance Results * Hepatitis C antibody Blood (05/28/2025 9:14 [...] last revised on 2020. Testing performed by: [facility], [address] [place] [address]., [id number] Blood 05/28/2025 9:14 AM CDT 05/28/2025 3:52 PM CDT Helena Becker SHORT ORDER COOK LAB MICROBIOLOGY - GENERAL OR DERABLES Final Result [facility] [id number] [facility] Department [place] [address] * Screening Mammogram Bilateral W Jose (12/09/2022 2:41 PM APPLICATIONS DEVELOPMENT ANALYST) Anatomical Region Laterality Modality Breast Bilateral Mammography 12/09/2022 2:43 PM APPLICATIONS DEVELOPMENT ANALYST Impressions 12/09/2022 2:43 PM APPLICATIONS DEVELOPMENT ANALYST There is no mammographic evidence of malignancy. A 1 year screening mammogram is recommended. BI-RADS: 1 - Negative. The patient has been or will be contacted. The patient will be entered into a reminder system with a target due date of 1 year for her next mammogram. Electronically signed by: BRUNO HAYWARD Narrative 12/09/2022 2:43 PM APPLICATIONS DEVELOPMENT ANALYST EXAMINATION: SCREENING MAMMOGRAM BILATERAL W JOSE [...] Most Recently Relevant to Health Maintenance Insurance [facility] CHOICE PLUS [facility] CHOICE PLUS Care Teams Airport Utility Worker Relationship Specialty Start Date End Date Helena Becker NP [address] [facility] [address] [place] [address] PCP - General Family Medicine 05/26/25 Carole Freitas, PT Physical Therapist Physical Therapy 06/29/22 Emma Hendricks, THOR [address] [place] [address] [address] [place] [address] Nurse Practitioner Psychiatry 09/14/22
[2025-11-28 14:15] VITALS: BP 98/60; PULSE 92; RESP 16; TEMP 37; O2SAT 100
--- NOTE | 2025-11-28 14:30 | ED.SOB ---
HPI - SOB/Dyspnea General Chief Complaint: Shortness of Breath/Dyspnea Stated Complaint: trouble breathing/vertico/aches Time Seen by Provider: 11/28/25 14:16 Source: patient and RN notes reviewed Mode of arrival: ambulatory Limitations: no limitations History of Present Illness HPI Narrative: 45-year-old female patient presents today complaining of 4 day history body aches, fatigue, weakness, shortness of breath with exertion, vertigo. She has also had some diarrhea that has improved with Kaopectate. Patient has history of vertigo that typically is helped with meclizine, but the meclizine has not been helpful. States vertigo is similar to previous episodes. Denies chest pain, cough, congestion, rhinorrhea, sore throat, abdominal pain, fever. Patient was seen after 24 hours of symptoms at [facility] ER where she was tested for flu and COVID that were negative, states blood work was done as well that came back negative. Related Data Home Medications ?Medication ?Instructions ?Recorded ?Confirmed ?Last Taken ?Type ariprazole 04/29/25 Unknown History clonazepam 0.5 mg tablet mg 06/27/25 Unknown History ergocalciferol (vitamin D2) 1,250 06/27/25 Unknown History mcg (50,000 unit) capsule lamotrigine 100 mg tablet mg 06/27/25 Unknown History propranolol 10 mg tablet mg 06/27/25 Unknown History fluoxetine 40 mg capsule mg 09/06/25 Unknown History tirzepatide (weight loss) 5 mg/0.5 mg subcut 09/06/25 Unknown History mL subcutaneous pen injector (Zepbound) Allergies Allergy/AdvReac Type Severity Reaction Status Date / Time clindamycin Allergy THROAT Verified 11/28/25 14:03 TIGHTENING albuterol AdvReac TIGHTNESS Verified 11/28/25 14:03 IN LINGS aripiprazole (From Abilify) AdvReac Hallucinating, Verified 11/28/25 14:03 CONFUSION bupropion (From Wellbutrin) AdvReac INCREASED Verified 11/28/25 14:03 ANXIETY butorphanol (From Stadol) AdvReac Anxiety Verified 11/28/25 14:03 citalopram AdvReac INCREASED Verified 11/28/25 14:03 DEPRESSION zinc AdvReac fatigue, Verified 11/28/25 14:03 CHEST PAINS PMFSH Past Medical History Medical History (Updated 11/28/25 @ 14:50 by Jigna Cavazos APRN, KRIS) Vertigo Arm fracture, left PTSD (post-traumatic stress disorder) Bipolar disorder Anxiety and depression Surgical History Surgical History H/O tubal ligation H/O: hysterectomy History of tonsillectomy Family History Family History Mother Family history non-contributory Social History Social History Smoking packs per day: 0.2 Smoking cigarettes per day: 4.0 Years smoked: 5 Smoking pack-years: 1.00 Smoking status: Former smoker Tobacco type: cigarettes Smoking end date: 05/29/22 Substance use: current Substance use type: marijuana Living arrangements: with family Additional living arrangements comments: PARENTS Spiritual care concerns: No Comments At time of signature, I have reviewed and agree with nursing past medical, surgical, social and family history unless otherwise noted. Please see nursing chart for further information. There is no relevant family history pertinent to the presenting complaint Exam Narrative: GENERAL: Well-appearing, well-nourished, and in no acute distress. HEAD: Normocephalic, atraumatic. EYES: EOMI. PERRL. No redness or drainage. Conjunctivae normal. No nystagmus noted. ENT: Mucous membranes pink and moist. Nares clear. No rhinorrhea. TMs normal bilaterally. Throat normal. Uvula midline. NECK: Normal AROM. Supple. No lymphadenopathy. CHEST: No respiratory distress. Clear to auscultation. HEART: Regular rate and rhythm. No murmur appreciated. Normal peripheral pulses. ABDOMEN: Soft, nontender, nondistended, normal active bowel sounds. EXTREMITIES: Normal range of motion. No edema. Distal sensation intact in all 4 extremities. SKIN: Warm, dry, no rash. Capillary refill normal. Normal skin turgor. NEURO: No focal deficits. Alert and oriented x3. Gait steady. 5/5 strength in BLE. Hand pole shaver equal and strong. PSYCH: Normal affect. No signs of depression or anxiety. Course Course Level of Care: Express Care Visit Vital Signs Vital signs: Vital Signs Temperature 98.6 F 11/28/25 14:15 Pulse Rate 92 11/28/25 14:15 Respiratory Rate 16 11/28/25 14:15 Blood Pressure 98/60 L 11/28/25 14:15 Pulse Oximetry 100 11/28/25 14:15 Oxygen Delivery Room Air 11/28/25 14:15 Temperature 98.6 F 11/28/25 14:15 Pulse Rate 92 11/28/25 14:15 Respiratory Rate 16 11/28/25 14:15 Blood Pressure 98/60 L 11/28/25 14:15 Pulse Oximetry 100 11/28/25 14:15 Oxygen Delivery Room Air 11/28/25 14:15 Reviewed [facility] MDM Narrative Medical decision making narrative: 45-year-old female patient presents today complaining of 4 day history body aches, fatigue, weakness, shortness of breath with exertion, vertigo. She has also had some diarrhea that has improved with Kaopectate. Patient has history of vertigo that typically is helped with meclizine, but the meclizine has not been helpful. States vertigo is similar to previous episodes. Denies chest pain, cough, congestion, rhinorrhea, sore throat, abdominal pain, fever. Patient was seen after 24 hours of symptoms at [facility] ER where she was tested for flu and COVID that were negative, states blood work was done as well that came back negative. Normal physical exam. Influenza and COVID negative here today. Discussed [facility] testing/diagnostic limitations with patient. Recommend ER transfer for further evaluation of symptoms. After discussion, patient declines ER transfer at this time and states she will go tomorrow if symptoms do not improve. At this time she has a normal physical exam. Differential Diagnosis Differential Diagnosis: Vertigo, dehydration, viral syndrome, influenza, COVID, electrolyte imbalance, arrhythmia, Lab Data [facility] Lab Attestation statement: I personally reviewed the patient's lab results. Lab results narrative: COVID negative, influenza negative Critical Care Time Critical Care Time Critical Care Time: No Discharge Plan Discharge Clinical Impression: Shortness of breath, Vertigo Patient Disposition: Home Condition: Stable Additional Instructions: You have declined ER transfer today. Please proceed to the nearest ER if you change your mind. Patient Language: Sammarinese Prescriptions: No Action ariprazole clonazepam 0.5 mg tablet propranolol 10 mg tablet ergocalciferol (vitamin D2) 1,250 mcg (50,000 unit) capsule lamotrigine 100 mg tablet triamcinolone acetonide 0.1 % cream 1 applic topical BID Qty: 30 0RF fluoxetine 40 mg capsule Zepbound 5 mg/0.5 mL pen injector SUBCUT Follow-up/Referrals: [facility] [Primary Care Provider, Internal Medicine] Time of Disposition: 14:50
[2025-11-28 14:51] LABS: EDCOVIDSCREEN Negative (Negative); EDINFLUASCREEN Negative (Negative); EDINFLUBSCREEN Negative (Negative)
== END 2025-11-28 14:55 | disposition home or self-care (01) ==
PROVIDERS: Emergency Provider Nurse Practitioner
DX: R06.02 Shortness of breath (principal); R42 Dizziness and giddiness; Z20.822 Contact with and (suspected) exposure to COVID-19; F12.90 Cannabis use, unspecified, uncomplicated; F41.9 Anxiety disorder, unspecified; F31.9 Bipolar disorder, unspecified; Z87.891 Personal history of nicotine dependence
CPT/HCPCS: 87426; 87804; 99213; G0463